=== PATIENT | male | born 1950 | race Caucasian/White ===

== ENCOUNTER 2016-06-04 14:34 | Inpatient (IN) | payer MEDICARE, MEDICAID, OTHER ==
[~2016-06-04] VITALS: Ht 172.7 cm; Wt 80.2 kg
[2016-06-04] VITALS (11 sets, daily range): BP systolic 123–163; BP diastolic 63–77; PULSE 62–79; RESP 16–21; TEMP 96.8–98.6; O2SAT 96–100
[~2016-06-04 14:34] MED LIST: CLON.1 PO; DARV PO; SULF1TAB47 PO
[2016-06-04 15:14] LABS: MEAN CORPUSCULAR HGB CONC 27.9 % (32.0-36.0)
[2016-06-04] MEDS ORDERED: SODIUM CHLORIDE 0.9% FLUSH 10 ML FLUSH IVF PRN (15:15)
[2016-06-04] MEDS ORDERED: PANTOPRAZOLE INJ 80 MG in SODIUM CHLORIDE 0.9% INJ 35 ML IV ONE (15:15)
[2016-06-04] MEDS ORDERED: OCTREOTIDE INJ 500 MCG in SODIUM CHLORID 0.9% 500 ML INJ 500 ML IV SCH (15:15)
[2016-06-04] MEDS ORDERED: PANTOPRAZOLE INJ 80 MG in SODIUM CHLORIDE 0.9% INJ 100 ML IV SCH (15:15)
[2016-06-04] MEDS ORDERED: METF500T4 PO (15:33)
[2016-06-04] MEDS ORDERED: LISI-515 PO (15:33)
[2016-06-04] MEDS ORDERED: AMLO10TA2 PO (15:33)
[2016-06-04] MEDS ORDERED: VITA10002 PO (15:33)
[2016-06-04] MEDS ORDERED: MECL12.574 PO (15:33)
[2016-06-04] MEDS ORDERED: GABA300C5 PO (15:33)
[2016-06-04] MEDS ORDERED: TRAZ100T4 PO (15:33)
[2016-06-04] MEDS ORDERED: ASPI1TAB91 PO (15:33)
[2016-06-04] MEDS ORDERED: FERR325T PO (15:33)
[2016-06-04] MEDS ORDERED: PLAV75TA29 PO (15:33)
[2016-06-04] MEDS ORDERED: FLUO20CA4 PO (15:33)
[2016-06-04] MEDS ORDERED: ATOR1TAB18 PO (15:33)
[2016-06-04] MEDS ORDERED: OXYB5TAB10 PO (15:33)
[2016-06-04] MEDS ORDERED: VENTAER INH (15:33)
[2016-06-04] MEDS ORDERED: NOVOLOGMXP SQ (15:33)
[2016-06-04] MEDS ORDERED: TRAM50TA PO (15:33)
[2016-06-04 15:38] LABS: AUTOMATED NEUTROPHIL # 2.8 TH/MM3 (1.8-7.7); BASOPHIL % 0.5 % (0.0-2.0); EOSINOPHIL # 0.1 TH/MM3 (0-0.4); EOSINOPHIL % 2.1 % (0.0-4.0); LYMPH % 27.9 % (9.0-44.0); LYMPHOCYTE # 1.3 TH/MM3 (1.0-4.8); MEAN CORPUSCULAR HEMOGLOBIN 16.5 PG (27.0-34.0); MONO % 8.5 % (0.0-8.0); PLATELET COUNT 312 TH/MM3 (150-450); RED BLOOD COUNT 3.47 MIL/MM3 (4.50-5.90); RED CELL DISTRIBUTION WIDTH 21.7 % (11.6-17.2); WHITE BLOOD COUNT 4.6 TH/MM3 (4.0-11.0)
[2016-06-04 15:45] LABS: HEMO FLAGS AUTO DIFF
[2016-06-04 15:46] LABS: APTT (PATIENT) 25.6 SEC (24.3-30.1); PROTHROMBIN TIME - PATIENT 11.1 SEC (9.8-11.6)
[2016-06-04 15:47] LABS: HEMATOCRIT 20.5 % (39.0-51.0)
--- NOTE | 2016-06-04 15:57 | PD ---
HPI Chief Complaint: Abnormal Results Time Seen by Provider: 15:12 Travel History International Travel<30 days: No Contact w/Intl Traveler<30days: No Traveled to known affect area: No History of Present Illness HPI 65-year-old male presents with low blood hemoglobin level of 5.6 sent from the [place]. He denies any symptoms that he can recall but is a poor historian. History is supplemented by records. [facility] Past Medical History Narrative Medical By records Asthma: No Autoimmune Disease: No Blood Disorders: No Anxiety: No Depression: No Heart Rhythm Problems: No Cancer: No Cardiovascular Problems: Yes (HTN) High Cholesterol: No Chemotherapy: No Chest Pain: No Congestive Heart Failure: No COPD: No Cerebrovascular Accident: Yes Diabetes: Yes Diminished Hearing: No Endocrine: No GERD: No Glaucoma: No Genitourinary: No Headaches: No Hepatitis: No Hiatal Hernia: No Hypertension: Yes Immune Disorder: No Kidney Stones: No Musculoskeletal: No Neurologic: Yes Psychiatric: No Reproductive: No Respiratory: No Migraines: No Myocardial Infarction: Yes (01/16) Radiation Therapy: No Renal Failure: No Seizures: No Sickle Cell Disease: No Sleep Apnea: No Thyroid Disease: No Ulcer: No Past Surgical History Narrative Surgical By records Abdominal Surgery: Yes (APPY) AICD: No Appendectomy: Yes Arteriovenous Shunt: No Cardiac Surgery: No Cholecystectomy: No Ear Surgery: No Endocrine Surgery: No Eye Surgery: No Genitourinary Surgery: No Gynecologic Surgery: No Insulin Pump: No Joint Replacement: No Oral Surgery: No Pacemaker: No Thoracic Surgery: No Social History Alcohol Use: No Tobacco Use: Yes Substance Use: No Allergies-Medications (Allergen,Severity, Reaction): Coded Allergies: Celebrex (Verified Allergy, Severe, Hives, 06/04/16) Reported Meds & Prescriptions Reported Meds & Active Scripts Active Reported Novolog Mix 70-30 Inj (Insulin Aspart Prota 70%/Aspart 30%) 1,000 Unit/10 Ml Vial 85 Units SQ BID Lisinopril 20 Mg Tab 10 Mg PO DAILY Meclizine (Meclizine HCl) 12.5 Mg Tab 12.5 Mg PO BID PRN Ditropan (Oxybutynin Chloride) 5 Mg Tab 5 Mg PO BID Tramadol (Tramadol HCl) 50 Mg Tab 100 Mg PO Q8HR PRN Trazodone (Trazodone HCl) 100 Mg Tab 100 Mg PO HS Metformin ER (Metformin HCl) 500 Mg Best 500 Mg PO BID Gabapentin 300 Mg Cap 300 Mg PO HS Fluoxetine (Fluoxetine HCl) 20 Mg Cap 20 Mg PO DAILY Ferrous Sulfate 325 Mg Tab 325 Mg PO DAILY Vitamin B-12 (Cyanocobalamin) 1,000 Mcg Tab 1,000 Mcg PO DAILY Plavix (Clopidogrel Bisulfate) 75 Mg Tab 75 Mg PO DAILY Atorvastatin (Atorvastatin Calcium) 80 Mg Tab 40 Mg PO HS Aspirin Adult Low Strength (Aspirin) 81 Mg Tabdr 81 Mg PO DAILY Amlodipine (Amlodipine Besylate) 10 Mg Tab 10 Mg PO DAILY Ventolin Hfa 18 GM Inh (Albuterol Sulfate) 90 Mcg/Act Aer 2 Puff INH Q6H PRN Review of Systems Except as stated in HPI: all other systems reviewed are Neg Physical Exam Exam Limitations: Poor Historian Narrative GENERAL: Well-nourished, well-developed patient. pale SKIN: Warm and dry. HEAD: Normocephalic and atraumatic. EYES: No injection or drainage. ENT: No nasal drainage noted. NECK: Supple, trachea midline. CARDIOVASCULAR: Regular rate and rhythm RESPIRATORY: No increased effort. No accessory muscle use. GASTROINTESTINAL: Abdomen soft, non-tender, nondistended. RECTAL EXAM: Performed with rack puller and after permission. No external hemorrhoid or fissure, stool is brown, non-bloody. NEUROLOGICAL: Awake. Moves extremities. Data Data Last Documented VS Vital Signs Date Time Temp Pulse Resp B/P Pulse Ox O2 Delivery O2 Flow Rate FiO2 06/04/16 15:55 96 06/04/16 14:43 98.6 72 18 135/64 Room Air Orders Complete Blood Count With Diff (06/04/16 15:12) Comprehensive Metabolic Panel (06/04/16 15:12) Prothrombin Time / Inr (Pt) (06/04/16 15:12) Act Partial Throm Time (Ptt) (06/04/16 15:12) Red Blood Cells (Rbc) (06/04/16 15:12) Ecg Monitoring (06/04/16 15:12) Iv Access Insert/Monitor (06/04/16 15:12) Oximetry (06/04/16 15:12) Sodium Chloride 0.9% Flush (Ns Flush) (06/04/16 15:15) Octreotide Inj (Sandostatin Inj) (06/04/16 15:15) Pantoprazole Inj (Protonix Inj) (06/04/16 15:15) Pantoprazole Inj (Protonix Inj) (06/04/16 15:15) Type And Screen (06/04/16 15:12) Blood Product Administration .UPON TRANSFUSION (06/04/16 15:46) Sodium Chlor 0.9% 250 Ml Inj (Ns 250 Ml (06/04/16 16:00) Vascular Access Team Consult/P PRN (06/04/16 15:47) Vascular Access Team Consult/P PRN (06/04/16 15:48) Vascular Poc Ultrasound (06/04/16 ) Admit Order (Ed Use Only) (06/04/16 16:48) Labs Laboratory Tests Test 06/04/16 15:20 White Blood Count 4.6 TH/MM3 Red Blood Count 3.47 MIL/MM3 Hemoglobin 5.7 GM/DL Hematocrit 20.5 % Mean Corpuscular Volume 59.0 FL Mean Corpuscular Hemoglobin 16.5 PG Mean Corpuscular Hemoglobin 27.9 % Concent Red Cell Distribution Width 21.7 % Platelet Count 312 TH/MM3 Mean Platelet Volume 8.5 FL Neutrophils (%) (Auto) 61.0 % Lymphocytes (%) (Auto) 27.9 % Monocytes (%) (Auto) 8.5 % Eosinophils (%) (Auto) 2.1 % Basophils (%) (Auto) 0.5 % Neutrophils # (Auto) 2.8 TH/MM3 Lymphocytes # (Auto) 1.3 TH/MM3 Monocytes # (Auto) 0.4 TH/MM3 Eosinophils # (Auto) 0.1 TH/MM3 Basophils # (Auto) 0.0 TH/MM3 CBC Comment AUTO DIFF Differential Comment AUTO DIFF CONFIRMED Platelet Estimate NORMAL Platelet Morphology Comment NORMAL Tear Drop Cells 1+ Ovalocytes 2+ Prothrombin Time 11.1 SEC Prothromb Time International 1.0 RATIO Ratio Activated Partial 25.6 SEC Thromboplast Time Sodium Level 136 MEQ/L Potassium Level 4.1 MEQ/L Chloride Level 102 MEQ/L Carbon Dioxide Level 22.2 MEQ/L Anion Gap 12 MEQ/L Blood Urea Nitrogen 19 MG/DL Creatinine 1.12 MG/DL Estimat Glomerular Filtration 66 ML/MIN Rate Random Glucose 298 MG/DL Calcium Level 7.9 MG/DL Total Bilirubin 0.3 MG/DL Aspartate Amino Transf 22 U/L (AST/SGOT) Alanine Aminotransferase 19 U/L (ALT/SGPT) Alkaline Phosphatase 125 U/L Total Protein 6.5 GM/DL Albumin 2.6 GM/DL Blood Type O POSITIVE Antibody Screen NEGATIVE Crossmatch Leukocyte-Reduced Red Blood Cells Blood Bank Comment MDM Medical Decision Making Medical Screen Exam Complete: Yes Emergency Medical Condition: Yes Medical Record Reviewed: Yes (past history confirmed) Interpretation(s) CBC & BMP Diagram 06/04/16 15:20 CBC & BMP Diagram 06/04/16 15:20 Differential Diagnosis GI bleed, anemia, lab error, renal failure Narrative Course Will check blood work and dose with Protonix and octreotide and transfuse 2 units. Patient agrees to admission Physician Communication Physician Communication dr jeff agrees to admit Diagnosis Primary Impression: Anemia Qualified Code: D64.9 - Anemia, unspecified type Additional Impression: GI bleed Qualified Code: K92.2 - Gastrointestinal hemorrhage, unspecified gastrointestinal hemorrhage type Admitting Information Admitting Physician Requests: Admit Sybil Perez MD Jun 04, 2016 15:57
[2016-06-04] MEDS ORDERED: SODIUM CHLOR 0.9% 250 ML INJ 250 ML IV ONE (16:00)
[2016-06-04 16:10] LABS: ALT (GPT) 19 U/L (12-78); ANION GAP 12 MEQ/L (5-15); AST (GOT) 22 U/L (15-37); BICARBONATE 22.2 MEQ/L (21.0-32.0); BLOOD UREA NITROGEN 19 MG/DL (7-18); CHLORIDE 102 MEQ/L (98-107); GLOMERULAR FILTRATION RATE 66 ML/MIN (>89); POTASSIUM 4.1 MEQ/L (3.5-5.1); SODIUM (NA) 136 MEQ/L (136-145)
[2016-06-04 16:13] LABS: ALKALINE PHOSPHATASE 125 U/L (45-117); TOTAL BILIRUBIN ADULT 0.3 MG/DL (0.2-1.0)
[2016-06-04 16:36] LABS: OVALOCYTES 2+ (NORMAL); PLATELET ESTIMATE SMEAR NORMAL (NORMAL); PLATELET MORPHOLOGY NORMAL (NORMAL); SCAN/DIFF AUTO DIFF CONFIRMED; TEARDROP RBCS 1+ (NORMAL)
[2016-06-04] MEDS ORDERED: SODIUM CHLORIDE 0.9% FLUSH 10 ML FLUSH IV FLUSH PRN (17:15)
[2016-06-04] MEDS ORDERED: GLUCAGON 1 MG/ML VIAL OTHER PRN (17:15)
[2016-06-04] MEDS ORDERED: traMADol HCL 50 MG TAB PO PRN (17:15)
[2016-06-04] MEDS ORDERED: NALOXONE HCL 0.4 MG/ML AMP IV PRN (17:15)
[2016-06-04] MEDS ORDERED: DEXTROSE 50% IN WATER 50 ML VIAL(D50) IV PUSH PRN (17:15)
[2016-06-04] MEDS ORDERED: ONDANSETRON HCL 4 MG/2 ML VIAL IVP PRN (17:15)
[2016-06-04] MEDS ORDERED: MECLIZINE HCL 25 MG TAB PO PRN (17:15)
[2016-06-04] MEDS ORDERED: ALBUTEROL SULFATE 90 MCG/ACT HFA 18 GM INHALER INH PRN (17:15)
--- NOTE | 2016-06-04 17:23 | HHI.HP ---
[facility] Admission Diagnosis anemia, gi bleed Diagnoses: Chief Complaint: abnormal lab Travel History International Travel<30 Days: No Contact w/Intl Traveler <30 Da: No Traveled to Known Affected Are: No History of Present Illness This is a 65-year-old male past mental history of hypertension, hyperlipidemia, type 2 diabetes with peripheral neuropathy, urinary urgency, questionable coronary artery disease who presented with an abnormal lab in the clinic. Patient stated that he went to follow up with his PCP today and had lab done in which a value was abnormal so he was sent to the emergency department. In the ER labs were obtained and hemoglobin was at 5.7. Patient denied any lightheadedness, dizziness, shortness of breathing, chest pain, or palpitation. He also denied any GI bleed. Denies any nausea or vomiting. Patient stated that he feels well. Patient stated that he had an colonoscopy within the past year and he was told that it was normal. He denies any alcohol use. Patient is a little slow in response but he is able to answer all my questions. Review of Systems Constitutional: DENIES: Diaphoretic episodes, Fatigue, Fever, Weight gain, Weight loss, Chills, Dizziness, Change in appetite, Night Sweats Endocrine: DENIES: Heat/cold intolerance, Polydipsia, Polyuria, Polyphagia Eyes: DENIES: Blurred vision, Diplopia, Eye inflammation, Eye pain, Vision loss , Photosensitivity, Double Vision Ears, nose, mouth, throat: DENIES: Tinnitus, Hearing loss, Vertigo, Nasal discharge, Oral lesions, Throat pain, Hoarseness, Ear Pain, Running Nose, Epistaxis, Sinus Pain, Toothache, Odynophagia Respiratory: DENIES: Apneas, Cough, Snoring, Wheezing, Hemoptysis, Sputum production, Shortness of breath Cardiovascular: DENIES: Chest pain, Palpitations, Syncope, Dyspnea on Exertion , PND, Lower Extremity Edema, Orthopnea, Claudication Gastrointestinal: DENIES: Abdominal pain, Black stools, Bloody stools, Constipation, Diarrhea, Nausea, Vomiting, Difficulty Swallowing, Anorexia Genitourinary: DENIES: Sexual dysfunction, Urinary frequency, Urinary incontinence, Urgency, Hematuria, Dysuria, Nocturia, Penile Discharge, Testicular Pain, Testicular Swelling Musculoskeletal: DENIES: Joint pain, Muscle aches, Stiffness, Joint Swelling, Back pain, Neck pain Integumentary: DENIES: Abnormal pigmentation, Nail changes, Pruritus, Rash Hematologic/lymphatic: DENIES: Bruising, Lymphadenopathy Immunologic/allergic: DENIES: Eczema, Urticaria Neurologic: DENIES: Abnormal gait, Headache, Localized weakness, Paresthesias, Seizures, Speech Problems, Tremor, Poor Balance Psychiatric: DENIES: Anxiety, Confusion, Mood changes, Depression, Hallucinations, Agitation, Suicidal Ideation, Homicidal Ideation, Delusions Past Family Social History Past Medical History Hypertension, hyperlipidemia, type 2 diabetes insulin-dependent, peripheral neuropathy, urinary urgency, depression, questionable coronary artery disease Past Surgical History Appendectomy Reported Medications Reported Meds & Active Scripts Active Reported Novolog Mix 70-30 Inj (Insulin Aspart Prota 70%/Aspart 30%) 1,000 Unit/10 Ml Vial 85 Units SQ BID Lisinopril 20 Mg Tab 10 Mg PO DAILY Meclizine (Meclizine HCl) 12.5 Mg Tab 12.5 Mg PO BID PRN Ditropan (Oxybutynin Chloride) 5 Mg Tab 5 Mg PO BID Tramadol (Tramadol HCl) 50 Mg Tab 100 Mg PO Q8HR PRN Trazodone (Trazodone HCl) 100 Mg Tab 100 Mg PO HS Metformin ER (Metformin HCl) 500 Mg Best 500 Mg PO BID Gabapentin 300 Mg Cap 300 Mg PO HS Fluoxetine (Fluoxetine HCl) 20 Mg Cap 20 Mg PO DAILY Ferrous Sulfate 325 Mg Tab 325 Mg PO DAILY Vitamin B-12 (Cyanocobalamin) 1,000 Mcg Tab 1,000 Mcg PO DAILY Plavix (Clopidogrel Bisulfate) 75 Mg Tab 75 Mg PO DAILY Atorvastatin (Atorvastatin Calcium) 80 Mg Tab 40 Mg PO HS Aspirin Adult Low Strength (Aspirin) 81 Mg Tabdr 81 Mg PO DAILY Amlodipine (Amlodipine Besylate) 10 Mg Tab 10 Mg PO DAILY Ventolin Hfa 18 GM Inh (Albuterol Sulfate) 90 Mcg/Act Aer 2 Puff INH Q6H PRN Allergies: Coded Allergies: Celebrex (Verified Allergy, Severe, Hives, 06/04/16) Active Ordered Medications Current Medications Sodium Chloride 2 ml 2 ml UNSCH PRN IVF FLUSH AFTER USING IV ACCESS; Start at 15:15 Octreotide Acetate 500 mcg/ Sodium Chloride 500.5 ml @ 50 mls/hr Q10H IV ; Start 06/04/16 at 15:15; Stop 06/04/16 at 17:03; Status DC Pantoprazole Sodium 80 mg/ Sodium Chloride 35 ml @ 420 mls/hr ONCE ONCE IV Last administered on 06/04/16t 16:34; Start 06/04/16 at 15:15; Stop 06/04/16 at 15:19; Status DC Pantoprazole Sodium 80 mg/ Sodium Chloride 100 ml @ 10 mls/hr Q10H IV ; Start 06/04/16 at 15:15; Stop 06/04/16 at 17:03; Status DC Sodium Chloride (NS 250 ml Inj) 250 ml @ 15 mls/hr ONCE ONCE IV ; Start at 16:00; Stop 06/05/16 at 08:39 Albuterol Sulfate (Proair Hfa Inh) 2 puff Q6H PRN INH SHORTNESS OF BREATH; Start 06/04/16 at 17:15; Status UNV Amlodipine Besylate (Norvasc) 10 mg DAILY PO ; Start 06/05/16 at 09:00; Status UNV Atorvastatin Calcium (Lipitor) 40 mg HS PO ; Start 06/04/16 at 21:00 Cyanocobalamin (Vitamin B12) 1,000 mcg DAILY PO ; Start 06/05/16 at 09:00; Status UNV Ferrous Sulfate (Ferrous Sulfate) 325 mg DAILY PO ; Start 06/05/16 at 09:00 Fluoxetine HCl (PROzac) 20 mg DAILY PO ; Start 06/05/16 at 09:00; Status UNV Gabapentin (Neurontin) 300 mg HS PO ; Start 06/04/16 at 21:00 Insulin Aspart Prota 70%/Aspart 30% (NovoLOG MIX 70/ 30 INJ) 85 units BID SQ ; Start 06/04/16 at 21:00; Status UNV Lisinopril (Prinivil) 10 mg DAILY PO ; Start 06/05/16 at 09:00; Status UNV Meclizine HCl (Antivert) 12.5 mg BID PRN PO VERTIGO; Start 06/04/16 at 17:15 Oxybutynin Chloride (Ditropan) 5 mg BID PO ; Start 06/04/16 at 21:00 Tramadol HCl (Ultram) 100 mg Q8HR PRN PO PAIN; Start 06/04/16 at 17:15; Status UNV Trazodone HCl (Desyrel) 100 mg HS PO ; Start 06/04/16 at 21:00 Metformin HCl (Glucophage) 500 mg BID PO BSM; Start 06/04/16 at 21:00 Pantoprazole Sodium 40 mg 40 mg Q12H IV PUSH ; Start 06/04/16 at 20:00; Status UNV Sodium Chloride (NS 1000 ml Inj) 1,000 ml @ 100 mls/hr Q10H IV ; Start at 17:08; Status UNV Sodium Chloride (NS Flush) 2 ml UNSCH PRN IV FLUSH FLUSH AFTER USING IV ACCESS ; Start 06/04/16 at 17:15; Status UNV Sodium Chloride (NS Flush) 2 ml BID IV FLUSH ; Start 06/04/16 at 21:00; Status UNV Ondansetron HCl (Zofran Inj) 4 mg Q6H PRN IVP NAUSEA OR VOMITING; Start at 17:15; Status UNV Naloxone HCl (Narcan Inj) 0.4 mg UNSCH PRN IV SEE LABEL COMMENTS; Start at 17:15; Status UNV Family History Father mother had history of coronary artery disease. Father also had a history of unknown type of cancer. Social History Patient lives at home with his and kids. Denied any alcohol illicit drug use. Smokes about half a pack per day. Physical Exam Vital Signs Vital Signs Date Time Temp Pulse Resp B/P Pulse Ox O2 Delivery O2 Flow Rate FiO2 06/04/16 15:55 96 06/04/16 14:43 98.6 72 18 135/64 96 Room Air 06/04/16 14:43 98.6 72 18 135/64 96 Physical Exam GENERAL: This is a well-nourished, well-developed patient, in no apparent distress. SKIN: No rashes, ecchymoses or lesions. Cool and dry. HEAD: Atraumatic. Normocephalic. No temporal or scalp tenderness. EYES: Pupils equal round and reactive. Extraocular motions intact. No scleral icterus. No injection or drainage. ENT: Nose without bleeding, purulent drainage or septal hematoma. Throat without erythema, tonsillar hypertrophy or exudate. Uvula midline. Airway patent. NECK: Trachea midline. No JVD or lymphadenopathy. Supple, nontender, no meningeal signs. CARDIOVASCULAR: Regular rate and rhythm without murmurs, gallops, or rubs. RESPIRATORY: Clear to auscultation. Breath sounds equal bilaterally. No wheezes , rales, or rhonchi. GASTROINTESTINAL: Abdomen soft, non-tender, nondistended. No hepato-splenomegaly , or palpable masses. No guarding. MUSCULOSKELETAL: Extremities without clubbing, cyanosis, or edema. No joint tenderness, effusion, or edema noted. No calf tenderness. Negative Homans sign bilaterally. NEUROLOGICAL: Awake and alert. Cranial nerves II through XII intact. Motor and sensory grossly within normal limits. Five out of 5 muscle strength in all muscle groups. Normal speech. Laboratory Laboratory Tests Test 06/04/16 15:20 White Blood Count 4.6 Red Blood Count 3.47 Hemoglobin 5.7 Hematocrit 20.5 Mean Corpuscular Volume 59.0 Mean Corpuscular Hemoglobin 16.5 Mean Corpuscular Hemoglobin 27.9 Concent Red Cell Distribution Width 21.7 Platelet Count 312 Mean Platelet Volume 8.5 Neutrophils (%) (Auto) 61.0 Lymphocytes (%) (Auto) 27.9 Monocytes (%) (Auto) 8.5 Eosinophils (%) (Auto) 2.1 Basophils (%) (Auto) 0.5 Neutrophils # (Auto) 2.8 Lymphocytes # (Auto) 1.3 Monocytes # (Auto) 0.4 Eosinophils # (Auto) 0.1 Basophils # (Auto) 0.0 CBC Comment AUTO DIFF Differential Comment AUTO DIFF CONFIRMED Platelet Estimate NORMAL Platelet Morphology Comment NORMAL Tear Drop Cells 1+ Ovalocytes 2+ Prothrombin Time 11.1 Prothromb Time International 1.0 Ratio Activated Partial 25.6 Thromboplast Time Sodium Level 136 Potassium Level 4.1 Chloride Level 102 Carbon Dioxide Level 22.2 Anion Gap 12 Blood Urea Nitrogen 19 Creatinine 1.12 Estimat Glomerular Filtration 66 Rate Random Glucose 298 Calcium Level 7.9 Total Bilirubin 0.3 Aspartate Amino Transf 22 (AST/SGOT) Alanine Aminotransferase 19 (ALT/SGPT) Alkaline Phosphatase 125 Total Protein 6.5 Albumin 2.6 Blood Type O POSITIVE Antibody Screen NEGATIVE Crossmatch Leukocyte-Reduced Red Blood Cells Blood Bank Comment Result Diagram: 06/04/16 1520 06/04/16 1520 Assessment and Plan Assessment and Plan 65-year-old male with past medical history hypertension, hyperlipidemia, type 2 diabetes insulin-dependent who presented with an abnormal hemoglobin of 5.7 Severe anemia -Hemoglobin is 5.7 with a MCV of 69. Suspecting iron deficiency anemia from GI source.Patient is hemodynamically stable. Positive Hemoccult blood stools that was obtained in the ED. -Per patient he had a colonoscopy within the year. -Patient was started on octreotide and Protonix gtt in the ED. I do not suspect any upper GI bleed since patient is asymptomatic. Will DC octreotide. Will start patient on Protonix 40 mg IV twice a day. -We'll consult GI and try to obtain colonoscopy report. -We'll do an anemia workup. -Patient is on aspirin and Plavix will hold pending recommendation from GI. -Continue to monitor H&H. -2 packs of red blood cell has been order in the ED and will be administered. We'll check a posttransfusion hemoglobin. Hypertension, hyperlipidemia, type 2 diabetes, peripheral neuropathy, urinary urgency, questionable history of coronary artery disease -Resume home medication except for aspirin and Plavix due to GI bleed. -We'll also order insulin sliding scale. DVT prophylaxis -Chemoprophylaxis contraindicated. -SCD/teds Discussed Condition With patient Physician Certification 2 Midnight Certification Type: Admission for Inpatient Services Order for Inpatient Services The services are ordered in accordance with Medicare regulations or non- Medicare payer requirements, as applicable. In the case of services not specified as inpatient-only, they are appropriately provided as inpatient services in accordance with the 2-midnight benchmark. Estimated LOS (days): 2 2 days is the estimated time the patient will need to remain in the hospital, assuming treatment plan goals are met and no additional complications. Post-Hospital Plan: Petrona Ugarte MD Jun 04, 2016 17:23
[2016-06-04 18:17] LABS: RETIC % 3.2 % (0.4-3.0)
[2016-06-04 18:22] LABS: REVIEW FLAG FINAL
[2016-06-04 18:40] LABS: LDH SERUM 158 U/L (87-241); TRANSFERRIN IRON PROFILE 411 MG/DL (200-360)
[2016-06-04 19:05] LABS: FERRITIN 8 NG/ML (26-388)
[2016-06-04] MEDS: PANTOPRAZOLE SODIUM 40 MG VIAL IV PUSH SCH (20:10)
[2016-06-04] MEDS: SODIUM CHLOR 0.9% 1000 ML INJ 1,000 ML IV SCH (20:10)
[2016-06-04] MEDS: SODIUM CHLORIDE 0.9% FLUSH 10 ML FLUSH IV FLUSH SCH (20:11)
[2016-06-04] MEDS ORDERED: metFORMIN HCL 500 MG TAB PO SCH (21:00)
[2016-06-04] MEDS ORDERED: INSULIN ASPAR PROT 70/30 1,000 UNITS/10 ML VIAL SQ SCH (21:00)
[2016-06-04] MEDS: INSULIN ASPART SUPPLEMENTAL SCALE SQ SCH (21:55)
[2016-06-04] MEDS: GABAPENTIN 300 MG CAP PO SCH (21:55)
[2016-06-04] MEDS: ATORVASTATIN 40 MG TAB PO SCH (21:55)
[2016-06-04] MEDS: traZODone HCL 100 MG TAB PO SCH (21:55)
[2016-06-04] MEDS: OXYBUTYNIN CHLORIDE 5 MG TAB PO SCH (21:55)
[2016-06-05] VITALS (9 sets, daily range): BP systolic 110–163; BP diastolic 63–74; PULSE 58–82; RESP 15–20; TEMP 96.1–97.8; O2SAT 95–98
[2016-06-05] MEDS: SODIUM CHLOR 0.9% 1000 ML INJ 1,000 ML IV SCH ×3 (04:10→23:08)
[2016-06-05] MEDS: INSULIN ASPART SUPPLEMENTAL SCALE SQ SCH ×4 (06:00→20:22)
[2016-06-05 06:24] LABS: HEMATOCRIT 25.3 % (39.0-51.0); MEAN CELL VOLUME 64.3 FL (80.0-100.0); MEAN CORPUSCULAR HEMOGLOBIN 19.6 PG (27.0-34.0); MEAN CORPUSCULAR HGB CONC 30.5 % (32.0-36.0); PLATELET COUNT 269 TH/MM3 (150-450); RED BLOOD COUNT 3.93 MIL/MM3 (4.50-5.90); WHITE BLOOD COUNT 4.8 TH/MM3 (4.0-11.0)
[2016-06-05 06:26] LABS: REVIEW FLAG FINAL
[2016-06-05 07:21] LABS: BICARBONATE 24.4 MEQ/L (21.0-32.0); POTASSIUM 3.7 MEQ/L (3.5-5.1)
[2016-06-05] MEDS: PANTOPRAZOLE SODIUM 40 MG VIAL IV PUSH SCH ×2 (08:00→20:17)
[2016-06-05] MEDS: SODIUM CHLORIDE 0.9% FLUSH 10 ML FLUSH IV FLUSH SCH ×2 (08:11→20:16)
[2016-06-05] MEDS: FLUoxetine HCL 20 MG CAP PO SCH (08:19)
[2016-06-05] MEDS: LISINOPRIL 10 MG TAB PO SCH (08:19)
[2016-06-05] MEDS: OXYBUTYNIN CHLORIDE 5 MG TAB PO SCH ×2 (08:19→20:17)
[2016-06-05] MEDS: CYANOCOBALAMIN 1,000 MCG TAB PO SCH (08:19)
[2016-06-05] MEDS: FERROUS SULFATE 325 MG (65 MG ELEMENTAL IRON) TAB PO SCH (08:20)
--- NOTE | 2016-06-05 08:58 | PD.CONS ---
HPI History of Present Illness This is a 65 year old male who presented to the ER for evaluation of abnormal labs as outpatient. He was found to have severe anemia with a HH of 5.7/20.5 on admission. he received 2 units of PRBC and this is now 7.7/25.3. Iron studies with Iron 17, TIBC 575, Iron Saturation 3.0, Ferritin 8. The patient reports that he has been more fatigued than usual, but cannot tell me for how long. He denies any shortness of breath, chest pain, nausea, vomiting, heartburn, reflux, diarrhea, constipation, black or dark stools, or red blood in his stool. He does report that he has had some intermittent lower abdominal cramping since this am. He is a very poor historian and unable to provide much information. He reported to another provider that he had a colonoscopy within the past year, but he is telling me that he has never had an egd or colonoscopy. Review of outpatient records show a pathology report from EGD/ Colonoscopy (02/18/07) that revealed hyperplastic polyp in sigmoid colon, reactive gastropathy, but the actual procedure report not available. He denies the use of blood thinners or NSAIDs. According to his medication list, he is on ASA and Plavix at home. He reports that he quit drinking alcohol 10 years ago, but was a heavy drinker prior to that. (Katlin Cody) PFSH Past Medical History Hypertension Hyperlipidemia Type 2 diabetes Peripheral neuropathy Depression Questionable coronary artery disease Gastritis Hyperplastic polyp Past Surgical History Appendectomy EGD/Colonoscopy (Katlin Cody) Coded Allergies: Celebrex (Verified Allergy, Severe, Hives, 06/04/16) Medications Allergies Coded Allergies Type Severity Reaction Last Updated Verified Celebrex Allergy Severe Hives 06/04/16 Yes Active Scripts Medications Dose Route/Sig Days Date Category Novolog Mix 70-30 Inj (Insulin Aspart Prota 70%/Aspart 30%) 1,000 Unit/10 Ml Vial 85 Units SQ BID 06/04/16 Reported Lisinopril 20 Mg Tab 10 Mg PO DAILY 06/04/16 Reported Meclizine (Meclizine HCl) 12.5 Mg Tab 12.5 Mg PO BID PRN 06/04/16 Reported Ditropan (Oxybutynin Chloride) 5 Mg Tab 5 Mg PO BID 06/04/16 Reported Tramadol (Tramadol HCl) 50 Mg Tab 100 Mg PO Q8HR PRN 06/04/16 Reported Trazodone (Trazodone HCl) 100 Mg Tab 100 Mg PO HS 06/04/16 Reported Metformin ER (Metformin HCl) 500 Mg Best 500 Mg PO BID 06/04/16 Reported Gabapentin 300 Mg Cap 300 Mg PO HS 06/04/16 Reported Fluoxetine (Fluoxetine HCl) 20 Mg Cap 20 Mg PO DAILY 06/04/16 Reported Ferrous Sulfate 325 Mg Tab 325 Mg PO DAILY 06/04/16 Reported Vitamin B-12 (Cyanocobalamin) 1,000 Mcg Tab 1,000 Mcg PO DAILY 06/04/16 Reported Plavix (Clopidogrel Bisulfate) 75 Mg Tab 75 Mg PO DAILY 06/04/16 Reported Atorvastatin (Atorvastatin Calcium) 80 Mg Tab 40 Mg PO HS 06/04/16 Reported Aspirin Adult Low Strength (Aspirin) 81 Mg Tabdr 81 Mg PO DAILY 06/04/16 Reported Amlodipine (Amlodipine Besylate) 10 Mg Tab 10 Mg PO DAILY 06/04/16 Reported Ventolin Hfa 18 GM Inh (Albuterol Sulfate) 90 Mcg/Act Aer 2 Puff INH Q6H PRN 06/04/16 Reported Family History Father mother had history of coronary artery disease. Father also had a history of unknown type of cancer. Social History Quit drinking 10 years ago, prior to that he was a heavy drinker. Smokes about half a pack per day. (Katlin Cody) Review of Systems Constitutional: COMPLAINS OF: Fatigue, DENIES: Weight loss, Change in appetite Respiratory: DENIES: Cough, Shortness of breath Cardiovascular: DENIES: Chest pain Gastrointestinal: COMPLAINS OF: Abdominal pain, DENIES: Black stools, Bloody stools, Constipation, Diarrhea, Nausea, Vomiting, Swelling of Abdomen, Heartburn , Hematemesis Integumentary: DENIES: Abnormal pigmentation Hematologic/lymphatic: DENIES: Bruising Neurologic: DENIES: Headache Psychiatric: DENIES: Confusion (Katlin Cody) GI Exam Vitals I&O Vital Signs Date Time Temp Pulse Resp B/P Pulse Ox O2 Delivery O2 Flow Rate FiO2 06/05/16 04:11 96.2 58 16 127/71 98 06/05/16 02:00 96.1 60 16 110/63 98 06/05/16 01:30 96.9 65 16 114/66 97 06/05/16 01:01 96.8 74 15 137/69 98 06/04/16 23:16 97.2 74 16 123/68 99 06/04/16 23:01 97.4 77 16 158/74 97 06/04/16 23:00 70 06/04/16 22:35 96.8 79 16 155/77 99 06/04/16 21:14 97.2 65 18 163/71 100 06/04/16 20:00 62 18 136/63 98 Room Air 06/04/16 19:40 68 21 163/73 96 Room Air 06/04/16 18:46 68 18 131/71 96 06/04/16 17:30 71 16 141/70 98 06/04/16 15:55 96 06/04/16 14:43 98.6 72 18 135/64 96 Room Air 06/04/16 14:43 98.6 72 18 135/64 96 Laboratory Test 06/04/16 06/04/16 06/05/16 15:20 18:00 04:47 White Blood Count 4.6 TH/MM3 4.8 TH/MM3 Red Blood Count 3.47 MIL/MM3 3.93 MIL/MM3 Hemoglobin 5.7 GM/DL 7.7 GM/DL Hematocrit 20.5 % 25.3 % Mean Corpuscular Volume 59.0 FL 64.3 FL Mean Corpuscular Hemoglobin 16.5 PG 19.6 PG Mean Corpuscular Hemoglobin 27.9 % 30.5 % Concent Red Cell Distribution Width 21.7 % 28.0 % Platelet Count 312 TH/MM3 269 TH/MM3 Mean Platelet Volume 8.5 FL 8.4 FL Neutrophils (%) (Auto) 61.0 % Lymphocytes (%) (Auto) 27.9 % Monocytes (%) (Auto) 8.5 % Eosinophils (%) (Auto) 2.1 % Basophils (%) (Auto) 0.5 % Neutrophils # (Auto) 2.8 TH/MM3 Lymphocytes # (Auto) 1.3 TH/MM3 Monocytes # (Auto) 0.4 TH/MM3 Eosinophils # (Auto) 0.1 TH/MM3 Basophils # (Auto) 0.0 TH/MM3 CBC Comment AUTO DIFF Differential Comment AUTO DIFF CONFIRMED Platelet Estimate NORMAL Platelet Morphology Comment NORMAL Tear Drop Cells 1+ Ovalocytes 2+ Prothrombin Time 11.1 SEC Prothromb Time International 1.0 RATIO Ratio Activated Partial 25.6 SEC Thromboplast Time Sodium Level 136 MEQ/L 144 MEQ/L Potassium Level 4.1 MEQ/L 3.7 MEQ/L Chloride Level 102 MEQ/L 111 MEQ/L Carbon Dioxide Level 22.2 MEQ/L 24.4 MEQ/L Anion Gap 12 MEQ/L 9 MEQ/L Blood Urea Nitrogen 19 MG/DL 14 MG/DL Creatinine 1.12 MG/DL 0.87 MG/DL Estimat Glomerular Filtration 66 ML/MIN 88 ML/MIN Rate Random Glucose 298 MG/DL 73 MG/DL Calcium Level 7.9 MG/DL 8.3 MG/DL Total Bilirubin 0.3 MG/DL Aspartate Amino Transf 22 U/L (AST/SGOT) Alanine Aminotransferase 19 U/L (ALT/SGPT) Alkaline Phosphatase 125 U/L Total Protein 6.5 GM/DL Albumin 2.6 GM/DL Blood Type O POSITIVE O POSITIVE Antibody Screen NEGATIVE Crossmatch Leukocyte-Reduced Red Blood Cells Blood Bank Comment Reticulocyte Count 3.2 % Absolute Reticulocyte Count 118.1 MIL/L Haptoglobin 238 MG/DL Iron Level 17 MCG/DL Total Iron Binding Capacity 575 MCG/DL Percent Iron Saturation 3.0 % Ferritin 8 NG/ML Lactate Dehydrogenase 158 U/L Vitamin B12 Level 692 PG/ML Folate 6.2 NG/ML Physical Examination HEENT: Normocephalic; atraumatic; no jaundice. CHEST: CTA CARDIAC: RRR ABDOMEN: Soft, nondistended, nontender; no hepatosplenomegaly; bowel sounds are present in all four quadrants. EXTREMITIES: No clubbing, cyanosis, or edema. SKIN: Normal; no rash; no jaundice. HIDE GRADER: No focal deficits; alert and oriented times three- poor historian (Katlin Cody) Assessment and Plan Plan ASSESSMENT: - Severe iron deficiency anemia. Pt very poor historian and denies any obvious GI bleeding. He also denies blood thinners or NSAID use, but according to EMR, he is on Plavix and ASA. He states he quit drinking etoh 10 years ago, but was a heavy drinker prior to that. He denies any hx of PUD. He reported earlier that he had a colonoscopy within the past year, but he is denying ever having one to me. Review of outpatient records show a pathology report from EGD/Colonoscopy (02/18/07) that revealed hyperplastic polyp in sigmoid colon, reactive gastropathy, but the actual procedure report not available. HH of 5.7/20.5 on admission. S/P 2 units of PRBC and this is now 7.7/25.3. Iron 17, TIBC 575, Iron Saturation 3.0, Ferritin 8. Protonix 40mg IV BID. Here is on a regular diet, but has not started on his breakfast yet. Of note, he had a solid brown stool while I was in the room. - Hypertension, Hyperlipidemia, Type 2 diabetes, Peripheral neuropathy, Depression, Questionable coronary artery disease. Per primary PLAN: - Plan for egd/colonoscopy in am - Obtain consents - Clear liquids - NPO after MN - Golytely prep - PPI - Monitor HH - Transfuse as necessary - Supportive care - FUrther recommendations to follow based on results of above - Pt seen and examined by Dr. Edmondson and myself and this note is written on his behalf (Katlin Cody) Physician Comments Patient seen and examined Agree with above Continue with current supportive care Monitor labs Plan for an EGD and a colonoscopy tomorrow (Roverto Edmondson MD) Katlin Cody Jun 05, 2016 08:58 Roverto Edmondson MD Jun 05, 2016 13:08
--- NOTE | 2016-06-05 11:35 | HHI.PR ---
Subjective Remarks Follow-up for severe anemia Patient continues to have no bloody stools or emesis. He has no complaints. Patient is a poor historian. Objective Vitals Vital Signs Date Time Temp Pulse Resp B/P Pulse Ox O2 Delivery O2 Flow Rate FiO2 06/05/16 07:50 97.1 72 20 163/68 96 06/05/16 04:11 96.2 58 16 127/71 98 06/05/16 02:00 96.1 60 16 110/63 98 06/05/16 01:30 96.9 65 16 114/66 97 06/05/16 01:01 96.8 74 15 137/69 98 06/04/16 23:16 97.2 74 16 123/68 99 06/04/16 23:01 97.4 77 16 158/74 97 06/04/16 23:00 70 06/04/16 22:35 96.8 79 16 155/77 99 06/04/16 21:14 97.2 65 18 163/71 100 06/04/16 20:00 62 18 136/63 98 Room Air 06/04/16 19:40 68 21 163/73 96 Room Air 06/04/16 18:46 68 18 131/71 96 06/04/16 17:30 71 16 141/70 98 06/04/16 15:55 96 06/04/16 14:43 98.6 72 18 135/64 96 Room Air 06/04/16 14:43 98.6 72 18 135/64 96 Result Diagram: 06/05/16 0447 06/05/16446 Objective Remarks GENERAL: in NAD NECK: Supple, trachea midline. No JVD or lymphadenopathy. CARDIOVASCULAR: Regular rate and rhythm without murmurs, gallops, or rubs. RESPIRATORY: Breath sounds equal bilaterally. No accessory muscle use. GASTROINTESTINAL: Abdomen soft, non-tender, nondistended. Medications and IVs Current Medications Sodium Chloride 2 ml 2 ml UNSCH PRN IVF FLUSH AFTER USING IV ACCESS; Start at 15:15 Octreotide Acetate 500 mcg/ Sodium Chloride 500.5 ml @ 50 mls/hr Q10H IV ; Start 06/04/16 at 15:15; Stop 06/04/16 at 17:03; Status DC Pantoprazole Sodium 80 mg/ Sodium Chloride 35 ml @ 420 mls/hr ONCE ONCE IV Last administered on 06/04/16 16:34; Start 06/04/16 at 15:15; Stop 06/04/16 at 15:19; Status DC Pantoprazole Sodium 80 mg/ Sodium Chloride 100 ml @ 10 mls/hr Q10H IV ; Start 06/04/16 at 15:15; Stop 06/04/16 at 17:03; Status DC Sodium Chloride (NS 250 ml Inj) 250 ml @ 15 mls/hr ONCE ONCE IV ; Start at 16:00; Stop 06/05/16 at 08:39; Status DC Albuterol Sulfate (Ventolin Hfa Inh) 2 puff Q6H PRN INH SHORTNESS OF BREATH; Start 06/04/16 at 17:15 Amlodipine Besylate (Norvasc) 10 mg DAILY PO Last administered on 06/05/16 08: 19; Start 06/05/16 at 09:00 Atorvastatin Calcium (Lipitor) 40 mg HS PO Last administered on 06/04/16 21:55 ; Start 06/04/16 at 21:00 Cyanocobalamin (Vitamin B12) 1,000 mcg DAILY PO Last administered on 06/05/16 08:19; Start 06/05/16 at 09:00 Ferrous Sulfate (Ferrous Sulfate) 325 mg DAILY PO Last administered on 08:20; Start 06/05/16 at 09:00 Fluoxetine HCl (PROzac) 20 mg DAILY PO Last administered on 06/05/16 08:19; Start 06/05/16 at 09:00 Gabapentin (Neurontin) 300 mg HS PO Last administered on 06/04/16 21:55; Start 06/04/16 at 21:00 Insulin Aspart Prota 70%/Aspart 30% (NovoLOG MIX 70/ 30 INJ) 85 units BID SQ Last administered on 06/04/16 21:00; Start 06/04/16 at 21:00 Lisinopril (Prinivil) 10 mg DAILY PO Last administered on 06/05/16 08:19; Start 06/05/16 at 09:00 Meclizine HCl (Antivert) 12.5 mg BID PRN PO VERTIGO; Start 06/04/16 at 17:15 Oxybutynin Chloride (Ditropan) 5 mg BID PO Last administered on 06/05/16 08:19 ; Start 06/04/16 at 21:00 Tramadol HCl (Ultram) 100 mg Q8HR PRN PO PAIN; Start 06/04/16 at 17:15 Trazodone HCl (Desyrel) 100 mg HS PO Last administered on 06/04/16 21:55; Start 06/04/16 at 21:00 Metformin HCl (Glucophage) 500 mg BID PO BSM Last administered on 06/04/16 21: 55; Start 06/04/16 at 21:00 Pantoprazole Sodium 40 mg 40 mg Q12H IV PUSH Last administered on 06/05/16 08: 00; Start 06/04/16 at 20:00 Sodium Chloride (NS 1000 ml Inj) 1,000 ml @ 100 mls/hr Q10H IV Last administered on 06/05/16 04:10; Start 06/04/16 at 17:08 Sodium Chloride (NS Flush) 2 ml UNSCH PRN IV FLUSH FLUSH AFTER USING IV ACCESS ; Start 06/04/16 at 17:15 Sodium Chloride (NS Flush) 2 ml BID IV FLUSH Last administered on 06/05/16 08: 11; Start 06/04/16 at 21:00 Ondansetron HCl (Zofran Inj) 4 mg Q6H PRN IVP NAUSEA OR VOMITING; Start at 17:15 Naloxone HCl (Narcan Inj) 0.4 mg UNSCH PRN IV SEE LABEL COMMENTS; Start at 17:15 Dextrose (D50w (Vial) Inj) 25 ml UNSCH PRN IV PUSH HYPOGLYCEMIA-SEE COMMENTS; Start 06/04/16 at 17:15 Glucagon (Glucagon Inj) 1 mg UNSCH PRN OTHER HYPOGLYCEMIA-SEE COMMENTS; Start 06/04/16 at 17:15 Insulin Aspart (NovoLOG SUPPLEMENTAL SCALE) 1 ACHS SLIDING SCALE SQ Last administered on 06/04/16 21:55; Start 06/04/16 at 21:00 Polyethylene Glycol/ Electrolytes (Colyte Liq) 4,000 ml ONCE ONCE PO ; Start at 16:00; Stop 06/05/16 at 16:01 A/P Assessment and Plan 65-year-old male with past medical history hypertension, hyperlipidemia, type 2 diabetes insulin-dependent who presented with an abnormal hemoglobin of 5.7 Severe anemia -Hemoglobin is 5.7 with a MCV of 69. Suspecting iron deficiency anemia from GI source.Patient is hemodynamically stable. Positive Hemoccult blood stools that was obtained in the ED. -GI consulted appreciate recommendation. -Patient was started on octreotide and Protonix gtt in the ED. I do not suspect any upper GI bleed since patient is asymptomatic so octreotide was discontinued. -Patient on Protonix twice a day. -Patient is on aspirin and Plavix will hold pending recommendation from GI. -Status transfusion of 2 units packed red blood cells on 06/04/2016 H went from 5.7 to 7.7 -EGD/Colonoscopy (02/18/07) that revealed hyperplastic polyp in sigmoid colon, reactive gastropathy, but the -Iron studies showed Iron 17, TIBC 575, Iron Saturation 3.0, Ferritin 8 suggesting iron deficiency anemia. -Patient is on a liquid diet and will have a EGD and colonoscopy done tomorrow. -Continue to trend H&H and monitor clinically. Hypertension, hyperlipidemia, type 2 diabetes, peripheral neuropathy, urinary urgency, questionable history of coronary artery disease -continue home medication except for aspirin and Plavix due to GI bleed. -Blood sugars have been running low will hold home doses of insulin. Also hold metformin. Continue with insulin sliding scale. Patient is also on the hypoglycemic protocol. DVT prophylaxis -Chemoprophylaxis contraindicated. -SCD/teds Discharge Planning Patient will have colonoscopy and EGD done tomorrow. If results does not require further management and hemoglobin remains stable possible discharge home tomorrow. Petrona Mahan MD Jun 05, 2016 11:35
[2016-06-05] MEDS ORDERED: PEG (High)/E-LYTE SOLN 4000 ML BTL PO ONE (16:00)
[2016-06-05] MEDS: GABAPENTIN 300 MG CAP PO SCH (20:17)
[2016-06-05] MEDS: traZODone HCL 100 MG TAB PO SCH (20:17)
[2016-06-05] MEDS: ATORVASTATIN 40 MG TAB PO SCH (20:17)
[2016-06-06] VITALS (7 sets, daily range): BP systolic 135–159; BP diastolic 62–74; PULSE 58–70; RESP 16–20; TEMP 97–98.4; O2SAT 96–99
[2016-06-06] MEDS: INSULIN ASPART SUPPLEMENTAL SCALE SQ SCH ×4 (05:25→21:32)
[2016-06-06 07:23] LABS: AUTOMATED NEUTROPHIL # 3.7 TH/MM3 (1.8-7.7); BASOPHIL # 0.1 TH/MM3 (0-0.2); BASOPHIL % 0.9 % (0.0-2.0); EOSINOPHIL # 0.2 TH/MM3 (0-0.4); EOSINOPHIL % 2.8 % (0.0-4.0); HEMATOCRIT 30.1 % (39.0-51.0); HEMO FLAGS AUTO DIFF; LYMPH % 30.1 % (9.0-44.0); MEAN CELL VOLUME 64.7 FL (80.0-100.0); MEAN CORPUSCULAR HEMOGLOBIN 18.7 PG (27.0-34.0); MONO % 11.1 % (0.0-8.0); NEUT % 55.1 % (16.0-70.0); PLATELET COUNT 279 TH/MM3 (150-450); RED BLOOD COUNT 4.66 MIL/MM3 (4.50-5.90); RED CELL DISTRIBUTION WIDTH 29.6 % (11.6-17.2); WHITE BLOOD COUNT 6.7 TH/MM3 (4.0-11.0)
[2016-06-06] MEDS: CYANOCOBALAMIN 1,000 MCG TAB PO SCH (08:02)
[2016-06-06] MEDS: LISINOPRIL 10 MG TAB PO SCH (08:02)
[2016-06-06] MEDS: FERROUS SULFATE 325 MG (65 MG ELEMENTAL IRON) TAB PO SCH (08:02)
[2016-06-06] MEDS: SODIUM CHLORIDE 0.9% FLUSH 10 ML FLUSH IV FLUSH SCH ×2 (08:14→20:55)
[2016-06-06] MEDS: FLUoxetine HCL 20 MG CAP PO SCH (08:14)
[2016-06-06] MEDS: PANTOPRAZOLE SODIUM 40 MG VIAL IV PUSH SCH ×2 (08:14→20:59)
[2016-06-06] MEDS: OXYBUTYNIN CHLORIDE 5 MG TAB PO SCH ×2 (08:14→20:54)
[2016-06-06 08:38] LABS: KERATOCYTES OCC (NORMAL); OVALOCYTES 1+ (NORMAL); PLATELET ESTIMATE SMEAR NORMAL (NORMAL); PLATELET MORPHOLOGY ENLARGED (NORMAL); SCAN/DIFF AUTO DIFF CONFIRMED
[2016-06-06 09:05] LABS: BICARBONATE 24.8 MEQ/L (21.0-32.0)
--- NOTE | 2016-06-06 16:08 | HHI.PR ---
Subjective Remarks Follow-up for anemia Patient had no episode GI bleed. Patient still nothing by mouth pending EGD and colonoscopy today. Patient has no complaints and anxious to go home. He denies any chest pain, shortness of breathing, palpitation, or any lightheadedness or dizziness. Objective Vitals Vital Signs Date Time Temp Pulse Resp B/P Pulse Ox O2 Delivery O2 Flow Rate FiO2 06/06/16 11:50 97.0 62 20 135/62 96 06/06/16 07:48 97.2 65 20 159/73 97 06/06/16 05:00 97.4 58 16 147/64 96 06/06/16 00:00 97.8 70 16 149/74 99 06/05/16 20:00 97.6 69 18 158/74 97 I/O 06/05/16 06/05/16 06/05/16 06/06/16 06/06/16 06/06/16 07:00 15:00 23:00 07:00 15:00 23:00 Intake Total 0 ml 1400 ml Balance 0 ml 1400 ml Intake Oral 0 ml 600 ml IV Total 800 ml # Voids 0 4 3 4 # Bowel Movements 2 2 Result Diagram: 06/06/16 0535 06/06/16 0830 Objective Remarks GENERAL: in NAD NECK: Supple, trachea midline. No JVD or lymphadenopathy. CARDIOVASCULAR: Regular rate and rhythm without murmurs, gallops, or rubs. RESPIRATORY: Breath sounds equal bilaterally. No accessory muscle use. GASTROINTESTINAL: Abdomen soft, non-tender, nondistended. Medications and IVs Current Medications Sodium Chloride 2 ml 2 ml UNSCH PRN IVF FLUSH AFTER USING IV ACCESS; Start at 15:15 Octreotide Acetate 500 mcg/ Sodium Chloride 500.5 ml @ 50 mls/hr Q10H IV ; Start 06/04/16 at 15:15; Stop 06/04/16 at 17:03; Status DC Pantoprazole Sodium 80 mg/ Sodium Chloride 35 ml @ 420 mls/hr ONCE ONCE IV Last administered on 06/04/16t 16:34; Start 06/04/16 at 15:15; Stop 06/04/16 at 15:19; Status DC Pantoprazole Sodium 80 mg/ Sodium Chloride 100 ml @ 10 mls/hr Q10H IV ; Start 06/04/16 at 15:15; Stop 06/04/16 at 17:03; Status DC Sodium Chloride (NS 250 ml Inj) 250 ml @ 15 mls/hr ONCE ONCE IV ; Start at 16:00; Stop 06/05/16 at 08:39; Status DC Albuterol Sulfate (Ventolin Hfa Inh) 2 puff Q6H PRN INH SHORTNESS OF BREATH; Start 06/04/16 at 17:15 Amlodipine Besylate (Norvasc) 10 mg DAILY PO Last administered on 06/06/16 08: 03; Start 06/05/16 at 09:00 Atorvastatin Calcium (Lipitor) 40 mg HS PO Last administered on 06/05/16 20:17 ; Start 06/04/16 at 21:00 Cyanocobalamin (Vitamin B12) 1,000 mcg DAILY PO Last administered on 06/06/16 08:02; Start 06/05/16 at 09:00 Ferrous Sulfate (Ferrous Sulfate) 325 mg DAILY PO Last administered on 08:02; Start 06/05/16 at 09:00 Fluoxetine HCl (PROzac) 20 mg DAILY PO Last administered on 06/06/16 08:14; Start 06/05/16 at 09:00 Gabapentin (Neurontin) 300 mg HS PO Last administered on 06/05/16 20:17; Start 06/04/16 at 21:00 Insulin Aspart Prota 70%/Aspart 30% (NovoLOG MIX 70/ 30 INJ) 85 units BID SQ Last administered on 06/04/16 21:00; Start 06/04/16 at 21:00; Stop 06/05/16 at 11:40; Status DC Lisinopril (Prinivil) 10 mg DAILY PO Last administered on 06/06/16 08:02; Start 06/05/16 at 09:00 Meclizine HCl (Antivert) 12.5 mg BID PRN PO VERTIGO; Start 06/04/16 at 17:15 Oxybutynin Chloride (Ditropan) 5 mg BID PO Last administered on 06/06/16 08:14 ; Start 06/04/16 at 21:00 Tramadol HCl (Ultram) 100 mg Q8HR PRN PO PAIN; Start 06/04/16 at 17:15 Trazodone HCl (Desyrel) 100 mg HS PO Last administered on 06/05/16 20:17; Start 06/04/16 at 21:00 Metformin HCl (Glucophage) 500 mg BID PO BSM Last administered on 06/04/16 21: 55; Start 06/04/16 at 21:00; Status Hold Pantoprazole Sodium 40 mg 40 mg Q12H IV PUSH Last administered on 06/06/16 08: 14; Start 06/04/16 at 20:00 Sodium Chloride (NS 1000 ml Inj) 1,000 ml @ 100 mls/hr Q10H IV Last administered on 06/05/16 23:08; Start 06/04/16 at 17:08 Sodium Chloride (NS Flush) 2 ml UNSCH PRN IV FLUSH FLUSH AFTER USING IV ACCESS ; Start 06/04/16 at 17:15 Sodium Chloride (NS Flush) 2 ml BID IV FLUSH Last administered on 06/05/16 08: 11; Start 06/04/16 at 21:00 Ondansetron HCl (Zofran Inj) 4 mg Q6H PRN IVP NAUSEA OR VOMITING; Start at 17:15 Naloxone HCl (Narcan Inj) 0.4 mg UNSCH PRN IV SEE LABEL COMMENTS; Start at 17:15 Dextrose (D50w (Vial) Inj) 25 ml UNSCH PRN IV PUSH HYPOGLYCEMIA-SEE COMMENTS; Start 06/04/16 at 17:15 Glucagon (Glucagon Inj) 1 mg UNSCH PRN OTHER HYPOGLYCEMIA-SEE COMMENTS; Start 06/04/16 at 17:15 Insulin Aspart (NovoLOG SUPPLEMENTAL SCALE) 1 ACHS SLIDING SCALE SQ Last administered on 06/04/16 21:55; Start 06/04/16 at 21:00 Polyethylene Glycol/ Electrolytes (Colyte Liq) 4,000 ml ONCE ONCE PO Last administered on 06/05/16 17:40; Start 06/05/16 at 16:00; Stop 06/05/16 at 16:01 ; Status DC A/P Assessment and Plan 65-year-old male with past medical history hypertension, hyperlipidemia, type 2 diabetes insulin-dependent who presented with an abnormal hemoglobin of 5.7 Severe anemia -Hemoglobin is 5.7 with a MCV of 69. Suspecting iron deficiency anemia from GI source.Patient is hemodynamically stable. Positive Hemoccult blood stools that was obtained in the ED. -GI consulted appreciate recommendation. -Patient was started on octreotide and Protonix gtt in the ED. I do not suspect any upper GI bleed since patient is asymptomatic so octreotide was discontinued. -Patient on Protonix twice a day. -Patient is on aspirin and Plavix will hold pending recommendation from GI. -Status transfusion of 2 units packed red blood cells on 06/04/2016 H went from 5.7 to 7.7 to 8.7 -EGD/Colonoscopy (02/18/07) that revealed hyperplastic polyp in sigmoid colon, reactive gastropathy, but the -Iron studies showed Iron 17, TIBC 575, Iron Saturation 3.0, Ferritin 8 suggesting iron deficiency anemia. -Patient is on a liquid diet and will have a EGD and colonoscopy to be done today. -Continue to trend H&H and monitor clinically. Hypertension, hyperlipidemia, type 2 diabetes, peripheral neuropathy, urinary urgency, questionable history of coronary artery disease -continue home medication except for aspirin and Plavix due to GI bleed. -Blood sugars have been running low will hold home doses of insulin. Also hold metformin. Continue with insulin sliding scale. Patient is also on the hypoglycemic protocol. DVT prophylaxis -Chemoprophylaxis contraindicated. -SCD/teds Discharge Planning Pending colonoscopy and EGD today. Based on results will determine further clinical course. Petrona Mahan MD Jun 06, 2016 16:08
--- NOTE | 2016-06-06 17:25 | EKG ---
Date Performed: 06/06/2016 Time Performed: 03:07:17 PTAGE: 65 years EKG: Sinus rhythm WITH SINUS ARRHYTHMIA NORMAL ECG Compared to prior study of 06/26/2009, non-specific T-wave changes h ave resolved. NO PREVIOUS TRACING DOCTOR: John Shen Interpretating Date/Time 06/06/2016 17:25:01
[2016-06-06] MEDS: ATORVASTATIN 40 MG TAB PO SCH (20:54)
[2016-06-06] MEDS: GABAPENTIN 300 MG CAP PO SCH (20:54)
[2016-06-06] MEDS: traZODone HCL 100 MG TAB PO SCH (20:54)
[2016-06-06] MEDS: SODIUM CHLOR 0.9% 1000 ML INJ 1,000 ML IV SCH (20:59)
--- NOTE | 2016-06-06 21:48 | HHI.GIFU ---
Subjective Remarks Comfortable in bed no new complaints Objective Vitals I&O Vital Signs Date Time Temp Pulse Resp B/P Pulse Ox O2 Delivery O2 Flow Rate FiO2 06/06/16 20:00 98.3 66 17 135/67 99 06/06/16 15:50 98.4 61 20 138/67 99 06/06/16 11:50 97.0 62 20 135/62 96 06/06/16 07:48 97.2 65 20 159/73 97 06/06/16 05:00 97.4 58 16 147/64 96 06/06/16 00:00 97.8 70 16 149/74 99 I/O 06/05/16 06/05/16 06/05/16 06/06/16 06/06/16 06/06/16 07:00 15:00 23:00 07:00 15:00 23:00 Intake Total 0 ml 1400 ml 442 ml 1150 ml Output Total 400 ml Balance 0 ml 1400 ml 442 ml 750 ml Intake Oral 0 ml 600 ml 442 ml 250 ml IV Total 800 ml 900 ml Output Urine Total 400 ml # Voids 0 4 3 4 5 # Bowel Movements 2 2 1 Laboratory Laboratory Tests Test 06/06/16 06/06/16 05:35 08:30 White Blood Count 6.7 Red Blood Count 4.66 Hemoglobin 8.7 Hematocrit 30.1 Mean Corpuscular Volume 64.7 Mean Corpuscular Hemoglobin 18.7 Mean Corpuscular Hemoglobin 29.0 Concent Red Cell Distribution Width 29.6 Platelet Count 279 Mean Platelet Volume 8.6 Neutrophils (%) (Auto) 55.1 Lymphocytes (%) (Auto) 30.1 Monocytes (%) (Auto) 11.1 Eosinophils (%) (Auto) 2.8 Basophils (%) (Auto) 0.9 Neutrophils # (Auto) 3.7 Lymphocytes # (Auto) 2.0 Monocytes # (Auto) 0.7 Eosinophils # (Auto) 0.2 Basophils # (Auto) 0.1 CBC Comment AUTO DIFF Differential Comment AUTO DIFF CONFIRMED Platelet Estimate NORMAL Platelet Morphology Comment ENLARGED Basophilic Stippling FAINT Ovalocytes 1+ Keratocytes OCC Hematology Comments Sodium Level 140 Potassium Level 4.0 Chloride Level 108 Carbon Dioxide Level 24.8 Anion Gap 7 Blood Urea Nitrogen 9 Creatinine 0.95 Estimat Glomerular Filtration 80 Rate Random Glucose 134 Calcium Level 8.0 Physical Exam HEENT: Normocephalic throat is clear NECK: Neck is supple, CHEST: Chest is clear to auscultation and percussion. CARDIAC: Regular rate and rhythm with no murmur gallop or rubs. ABDOMEN: Soft, nondistended, nontender; no hepatosplenomegaly; bowel sounds are present in all four quadrants. EXTREMITIES: No clubbing, cyanosis, or edema. SKIN: Normal; no rash; no jaundice. CLAIM ATTORNEY: No focal deficits; alert and oriented times three. Assessment and Plan Plan ASSESSMENT: - Severe iron deficiency anemia. Pt very poor historian and denies any obvious GI bleeding. He also denies blood thinners or NSAID use, but according to EMR, he is on Plavix and ASA. He states he quit drinking etoh 10 years ago, but was a heavy drinker prior to that. He denies any hx of PUD. He reported earlier that he had a colonoscopy within the past year, but he is denying ever having one to me. Review of outpatient records show a pathology report from EGD/Colonoscopy (02/18/07) that revealed hyperplastic polyp in sigmoid colon, reactive gastropathy, but the actual procedure report not available. HH of 5.7/20.5 on admission. S/P 2 units of PRBC and this is now 7.7/25.3. Iron 17, TIBC 575, Iron Saturation 3.0, Ferritin 8. Protonix 40mg IV BID. Here is on a regular diet, but has not started on his breakfast yet. Of note, he had a solid brown stool while I was in the room. - Hypertension, Hyperlipidemia, Type 2 diabetes, Peripheral neuropathy, Depression, Questionable coronary artery disease. Per primary PLAN: - Plan for egd/colonoscopy in am he apparently was not able to finish his prep yesterday and therefore this is delayed until tomorrow - Obtain consents - Clear liquids - NPO after MN - Golytely prep - PPI - Monitor HH - Transfuse as necessary - Supportive care - FUrther recommendations to follow based on results of above Roverto Edmondson MD Jun 06, 2016 21:48
[2016-06-06] MEDS ORDERED: MAGNESIUM CITRATE SOLN 300 ML BTL PO ONE (22:00)
[2016-06-07] VITALS (8 sets, daily range): BP systolic 104–166; BP diastolic 64–80; PULSE 56–80; RESP 16–20; TEMP 96.2–98.6; O2SAT 95–99
[2016-06-07] MEDS: SODIUM CHLOR 0.9% 1000 ML INJ 1,000 ML IV SCH ×2 (05:06→17:32)
[2016-06-07] MEDS: INSULIN ASPART SUPPLEMENTAL SCALE SQ SCH ×4 (06:25→22:00)
[2016-06-07] MEDS: CYANOCOBALAMIN 1,000 MCG TAB PO SCH (10:04)
[2016-06-07] MEDS: FLUoxetine HCL 20 MG CAP PO SCH (10:04)
[2016-06-07] MEDS: OXYBUTYNIN CHLORIDE 5 MG TAB PO SCH ×2 (10:04→20:27)
[2016-06-07] MEDS: FERROUS SULFATE 325 MG (65 MG ELEMENTAL IRON) TAB PO SCH (10:04)
[2016-06-07] MEDS: SODIUM CHLORIDE 0.9% FLUSH 10 ML FLUSH IV FLUSH SCH ×2 (10:05→20:26)
[2016-06-07] MEDS: PANTOPRAZOLE SODIUM 40 MG VIAL IV PUSH SCH ×2 (10:05→20:26)
[2016-06-07] MEDS: LISINOPRIL 10 MG TAB PO SCH (10:05)
[2016-06-07 13:56] LABS: MEAN CORPUSCULAR HGB CONC 29.3 % (32.0-36.0)
--- NOTE | 2016-06-07 13:58 | HHI.PR ---
Subjective Remarks Follow-up for severe anemia. No episodes of any GI bleed. Patient has no complaints. Denying chest pain, SOB, palpitation, lightheadedness/ dizziness. Patient is still waiting for his EGD colonoscopy today. Objective Vitals Vital Signs Date Time Temp Pulse Resp B/P Pulse Ox O2 Delivery O2 Flow Rate FiO2 06/07/16 12:00 96.6 80 18 152/80 97 06/07/16 08:00 97.2 76 20 163/74 99 06/07/16 07:18 57 06/07/16 04:00 98.4 56 16 141/64 95 06/07/16 00:00 98.6 65 17 104/65 95 06/06/16 20:14 68 06/06/16 20:00 98.3 66 17 135/67 99 06/06/16 15:50 98.4 61 20 138/67 99 I/O 06/06/16 06/06/16 06/06/16 06/07/16 06/07/16 06/07/16 06:59 14:59 22:59 06:59 14:59 22:59 Intake Total 442 ml 2480 ml 800 ml Output Total 400 ml Balance 442 ml 2080 ml 800 ml Intake Oral 442 ml 730 ml 0 ml IV Total 1750 ml 800 ml Output Urine Total 400 ml # Voids 4 5 2 2 # Bowel Movements 2 1 2 2 Result Diagram: 06/06/16 0535 06/06/16 0830 Objective Remarks GENERAL: in NAD NECK: Supple, trachea midline. No JVD or lymphadenopathy. CARDIOVASCULAR: Regular rate and rhythm without murmurs, gallops, or rubs. RESPIRATORY: Breath sounds equal bilaterally. No accessory muscle use. GASTROINTESTINAL: Abdomen soft, non-tender, nondistended. Medications and IVs Current Medications Sodium Chloride 2 ml 2 ml UNSCH PRN IVF FLUSH AFTER USING IV ACCESS; Start at 15:15 Octreotide Acetate 500 mcg/ Sodium Chloride 500.5 ml @ 50 mls/hr Q10H IV ; Start 06/04/16 at 15:15; Stop 06/04/16 at 17:03; Status DC Pantoprazole Sodium 80 mg/ Sodium Chloride 35 ml @ 420 mls/hr ONCE ONCE IV Last administered on 06/04/16t 16:34; Start 06/04/16 at 15:15; Stop 06/04/16 at 15:19; Status DC Pantoprazole Sodium 80 mg/ Sodium Chloride 100 ml @ 10 mls/hr Q10H IV ; Start 06/04/16 at 15:15; Stop 06/04/16 at 17:03; Status DC Sodium Chloride (NS 250 ml Inj) 250 ml @ 15 mls/hr ONCE ONCE IV ; Start at 16:00; Stop 06/05/16 at 08:39; Status DC Albuterol Sulfate (Ventolin Hfa Inh) 2 puff Q6H PRN INH SHORTNESS OF BREATH; Start 06/04/16 at 17:15 Amlodipine Besylate (Norvasc) 10 mg DAILY PO Last administered on 06/07/16 10: 04; Start 06/05/16 at 09:00 Atorvastatin Calcium (Lipitor) 40 mg HS PO Last administered on 06/06/16 20:54 ; Start 06/04/16 at 21:00 Cyanocobalamin (Vitamin B12) 1,000 mcg DAILY PO Last administered on 06/07/16 10:04; Start 06/05/16 at 09:00 Ferrous Sulfate (Ferrous Sulfate) 325 mg DAILY PO Last administered on 10:04; Start 06/05/16 at 09:00 Fluoxetine HCl (PROzac) 20 mg DAILY PO Last administered on 06/07/16 10:04; Start 06/05/16 at 09:00 Gabapentin (Neurontin) 300 mg HS PO Last administered on 06/06/16 20:54; Start 06/04/16 at 21:00 Insulin Aspart Prota 70%/Aspart 30% (NovoLOG MIX 70/ 30 INJ) 85 units BID SQ Last administered on 06/04/16 21:00; Start 06/04/16 at 21:00; Stop 06/05/16 at 11:40; Status DC Lisinopril (Prinivil) 10 mg DAILY PO Last administered on 06/07/16 10:05; Start 06/05/16 at 09:00 Meclizine HCl (Antivert) 12.5 mg BID PRN PO VERTIGO; Start 06/04/16 at 17:15 Oxybutynin Chloride (Ditropan) 5 mg BID PO Last administered on 06/07/16 10:04 ; Start 06/04/16 at 21:00 Tramadol HCl (Ultram) 100 mg Q8HR PRN PO PAIN; Start 06/04/16 at 17:15 Trazodone HCl (Desyrel) 100 mg HS PO Last administered on 06/06/16 20:54; Start 06/04/16 at 21:00 Metformin HCl (Glucophage) 500 mg BID PO BSM Last administered on 06/04/16 21: 55; Start 06/04/16 at 21:00; Status Hold Pantoprazole Sodium 40 mg 40 mg Q12H IV PUSH Last administered on 06/07/16 10: 05; Start 06/04/16 at 20:00 Sodium Chloride (NS 1000 ml Inj) 1,000 ml @ 100 mls/hr Q10H IV Last administered on 06/07/16 05:06; Start 06/04/16 at 17:08 Sodium Chloride (NS Flush) 2 ml UNSCH PRN IV FLUSH FLUSH AFTER USING IV ACCESS ; Start 06/04/16 at 17:15 Sodium Chloride (NS Flush) 2 ml BID IV FLUSH Last administered on 06/06/16 20: 55; Start 06/04/16 at 21:00 Ondansetron HCl (Zofran Inj) 4 mg Q6H PRN IVP NAUSEA OR VOMITING; Start at 17:15 Naloxone HCl (Narcan Inj) 0.4 mg UNSCH PRN IV SEE LABEL COMMENTS; Start at 17:15 Dextrose (D50w (Vial) Inj) 25 ml UNSCH PRN IV PUSH HYPOGLYCEMIA-SEE COMMENTS; Start 06/04/16 at 17:15 Glucagon (Glucagon Inj) 1 mg UNSCH PRN OTHER HYPOGLYCEMIA-SEE COMMENTS; Start 06/04/16 at 17:15 Insulin Aspart (NovoLOG SUPPLEMENTAL SCALE) 1 ACHS SLIDING SCALE SQ Last administered on 06/07/16 12:44; Start 06/04/16 at 21:00 Polyethylene Glycol/ Electrolytes (Colyte Liq) 4,000 ml ONCE ONCE PO Last administered on 06/05/16 17:40; Start 06/05/16 at 16:00; Stop 06/05/16 at 16:01 ; Status DC Magnesium Citrate (Citroma Liq) 300 ml ONCE ONCE PO Last administered on 4/27/ 17at 22:53; Start 06/06/16 at 22:00; Stop 06/06/16 at 22:01; Status DC A/P Assessment and Plan 65-year-old male with past medical history hypertension, hyperlipidemia, type 2 diabetes insulin-dependent who presented with an abnormal hemoglobin of 5.7 Severe anemia -Hemoglobin is 5.7 with a MCV of 69. Suspecting iron deficiency anemia from GI source.Patient is hemodynamically stable. Positive Hemoccult blood stools that was obtained in the ED. -GI consulted appreciate recommendation. -Patient was started on octreotide and Protonix gtt in the ED. I do not suspect any upper GI bleed since patient is asymptomatic so octreotide was discontinued. -Patient on Protonix twice a day. -Patient is on aspirin and Plavix will hold pending recommendation from GI. -Status transfusion of 2 units packed red blood cells on 06/04/2016 H went from 5.7 to 7.7 to 8.7 -EGD/Colonoscopy (02/18/07) that revealed hyperplastic polyp in sigmoid colon, reactive gastropathy, but the -Iron studies showed Iron 17, TIBC 575, Iron Saturation 3.0, Ferritin 8 suggesting iron deficiency anemia. -Patient is postop a colonoscopy done today. -Continue to trend H&H and monitor clinically. Hypertension, hyperlipidemia, type 2 diabetes, peripheral neuropathy, urinary urgency, questionable history of coronary artery disease -continue home medication except for aspirin and Plavix due to GI bleed. -Blood sugars have been running low will hold home doses of insulin. Also hold metformin. Continue with insulin sliding scale. Patient is also on the hypoglycemic protocol. DVT prophylaxis -Chemoprophylaxis contraindicated. -SCD/teds Discharge Planning Patient did not complete prep yesterday so pending colonoscopy and EGD today. Petrona Mahan MD Jun 07, 2016 13:58
--- NOTE | 2016-06-07 15:18 | HHI.GIFU ---
Subjective Remarks Patient is resting in bed, no nausea, no vomiting, no abd pain. (Humble Deng) Objective Vitals I&O Vital Signs Date Time Temp Pulse Resp B/P Pulse Ox O2 Delivery O2 Flow Rate FiO2 06/07/16 12:00 96.6 80 18 152/80 97 06/07/16 08:00 97.2 76 20 163/74 99 06/07/16 07:18 57 06/07/16 04:00 98.4 56 16 141/64 95 06/07/16 00:00 98.6 65 17 104/65 95 06/06/16 20:14 68 06/06/16 20:00 98.3 66 17 135/67 99 06/06/16 15:50 98.4 61 20 138/67 99 I/O 06/06/16 06/06/16 06/06/16 06/07/16 06/07/16 06/07/16 07:00 15:00 23:00 07:00 15:00 23:00 Intake Total 442 ml 2480 ml 800 ml 120 ml Output Total 400 ml Balance 442 ml 2080 ml 800 ml 120 ml Intake Oral 442 ml 730 ml 0 ml 120 ml IV Total 1750 ml 800 ml Output Urine Total 400 ml # Voids 4 5 2 2 2 # Bowel Movements 2 1 2 2 1 Physical Exam HEENT: Normocephalic throat is clear NECK: Neck is supple, CHEST: Chest is clear to auscultation and percussion. CARDIAC: Regular rate and rhythm with no murmur gallop or rubs. ABDOMEN: Soft, nondistended, nontender; no hepatosplenomegaly; bowel sounds are present in all four quadrants. EXTREMITIES: No clubbing, cyanosis, or edema. SKIN: Normal; no rash; no jaundice. AUTOMATIC EDGER: confused, alert (Humble Deng LIQUEFIER) Assessment and Plan Plan ASSESSMENT: - Severe iron deficiency anemia. Pt very poor historian and denies any obvious GI bleeding. He also denies blood thinners or NSAID use, but according to EMR, he is on Plavix and ASA. He states he quit drinking etoh 10 years ago, but was a heavy drinker prior to that. He denies any hx of PUD. He reported earlier that he had a colonoscopy within the past year, but he is denying ever having one to me. Review of outpatient records show a pathology report from EGD/Colonoscopy (02/18/07) that revealed hyperplastic polyp in sigmoid colon, reactive gastropathy, but the actual procedure report not available. HH of 5.7/20.5 on admission. S/P 2 units of PRBC and this is now 7.7/25.3. Iron 17, TIBC 575, Iron Saturation 3.0, Ferritin 8. Protonix 40mg IV BID. Here is on a regular diet, but has not started on his breakfast yet. Of note, he had a solid brown stool while I was in the room. - Hypertension, Hyperlipidemia, Type 2 diabetes, Peripheral neuropathy, Depression, Questionable coronary artery disease. Per primary 06/07/16 Consents obtained today from , will plan for EGD/colonoscopy tomorrow No obvious bleeding reported, no hh today PLAN: - Plan for egd/colonoscopy in am - Obtain consents - Clear liquids - NPO after MN - Golytely prep - PPI - Monitor HH - Transfuse as necessary - Supportive care - FUrther recommendations to follow based on results of above - Patient seen and examined by Dr. Edmondson and myself and this note is written on his behalf. (Humble Deng) Physician Comments Patient seen and examined Agree with above Continue with current supportive care Monitor labs Endoscopy tomorrow (Roverto Edmondson MD) Humble Deng Jun 07, 2016 15:18 Roverto Edmondson MD Jun 07, 2016 22:47
[2016-06-07 15:28] LABS: HEMATOCRIT 28.3 % (39.0-51.0); MEAN CELL VOLUME 63.3 FL (80.0-100.0); MEAN CORPUSCULAR HEMOGLOBIN 18.6 PG (27.0-34.0); PLATELET COUNT 233 TH/MM3 (150-450); RED BLOOD COUNT 4.46 MIL/MM3 (4.50-5.90); RED CELL DISTRIBUTION WIDTH 30.2 % (11.6-17.2); WHITE BLOOD COUNT 5.4 TH/MM3 (4.0-11.0)
[2016-06-07 15:29] LABS: REVIEW FLAG FINAL
[2016-06-07] MEDS ORDERED: PEG (High)/E-LYTE SOLN 4000 ML BTL PO ONE (15:30)
[2016-06-07] MEDS: ATORVASTATIN 40 MG TAB PO SCH (20:26)
[2016-06-07] MEDS: GABAPENTIN 300 MG CAP PO SCH (20:27)
[2016-06-07] MEDS: traZODone HCL 100 MG TAB PO SCH (20:27)
[2016-06-07 21:10] LABS: MEAN CORPUSCULAR HGB CONC 29.8 % (32.0-36.0)
[2016-06-08] VITALS (8 sets, daily range): BP systolic 123–172; BP diastolic 57–74; PULSE 59–77; RESP 18; TEMP 96.4–98.8; O2SAT 95–99
[2016-06-08] MEDS: INSULIN ASPART SUPPLEMENTAL SCALE SQ SCH ×4 (06:33→21:00)
[2016-06-08] MEDS: SODIUM CHLOR 0.9% 1000 ML INJ 1,000 ML IV SCH ×3 (06:33→20:43)
[2016-06-08 08:06] LABS: HEMATOCRIT 25.9 % (39.0-51.0); MEAN CELL VOLUME 64.4 FL (80.0-100.0); MEAN CORPUSCULAR HEMOGLOBIN 19.2 PG (27.0-34.0); PLATELET COUNT 229 TH/MM3 (150-450); RED BLOOD COUNT 4.03 MIL/MM3 (4.50-5.90); RED CELL DISTRIBUTION WIDTH 28.5 % (11.6-17.2); WHITE BLOOD COUNT 4.4 TH/MM3 (4.0-11.0)
[2016-06-08 08:16] LABS: REVIEW FLAG FINAL
[2016-06-08] MEDS: OXYBUTYNIN CHLORIDE 5 MG TAB PO SCH ×2 (09:11→20:39)
[2016-06-08] MEDS: SODIUM CHLORIDE 0.9% FLUSH 10 ML FLUSH IV FLUSH SCH ×2 (09:11→20:39)
[2016-06-08] MEDS: PANTOPRAZOLE SODIUM 40 MG VIAL IV PUSH SCH ×2 (09:11→20:37)
[2016-06-08] MEDS: LISINOPRIL 10 MG TAB PO SCH (09:11)
--- NOTE | 2016-06-08 16:19 | HHI.PR ---
Subjective Remarks f/u for GI bleed. patient denied any GI bleed. He is AAO X 3. he is able to give me his name, date, and location. His response is slow but this is his baseline. Objective Vitals Vital Signs Date Time Temp Pulse Resp B/P Pulse Ox O2 Delivery O2 Flow Rate FiO2 06/08/16 12:56 97.7 63 18 123/57 96 06/08/16 09:10 97.2 65 18 150/66 95 06/08/16 04:00 97.2 59 18 170/74 98 06/08/16 00:00 96.4 64 18 172/74 99 06/07/16 21:17 70 06/07/16 20:00 96.2 68 17 166/74 98 I/O 06/07/16 06/07/16 06/07/16 06/08/16 06/08/16 06/08/16 07:00 15:00 23:00 07:00 15:00 23:00 Intake Total 800 ml 120 ml 800 ml 800 ml Output Total 950 ml Balance 800 ml 120 ml 800 ml -150 ml Intake Oral 0 ml 120 ml IV Total 800 ml 800 ml 800 ml Output Urine Total 950 ml # Voids 2 2 1 # Bowel Movements 2 1 2 Result Diagram: 06/08/16 0732 06/06/16 0830 Objective Remarks GENERAL: in NAD NECK: Supple, trachea midline. No JVD or lymphadenopathy. CARDIOVASCULAR: Regular rate and rhythm without murmurs, gallops, or rubs. RESPIRATORY: Breath sounds equal bilaterally. No accessory muscle use. GASTROINTESTINAL: Abdomen soft, non-tender, nondistended. Medications and IVs Current Medications Sodium Chloride 2 ml 2 ml UNSCH PRN IVF FLUSH AFTER USING IV ACCESS; Start at 15:15; Stop 06/08/16 at 16:05; Status DC Octreotide Acetate 500 mcg/ Sodium Chloride 500.5 ml @ 50 mls/hr Q10H IV ; Start 06/04/16 at 15:15; Stop 06/04/16 at 17:03; Status DC Pantoprazole Sodium 80 mg/ Sodium Chloride 35 ml @ 420 mls/hr ONCE ONCE IV Last administered on 06/04/16t 16:34; Start 06/04/16 at 15:15; Stop 06/04/16 at 15:19; Status DC Pantoprazole Sodium 80 mg/ Sodium Chloride 100 ml @ 10 mls/hr Q10H IV ; Start 06/04/16 at 15:15; Stop 06/04/16 at 17:03; Status DC Sodium Chloride (NS 250 ml Inj) 250 ml @ 15 mls/hr ONCE ONCE IV ; Start at 16:00; Stop 06/05/16 at 08:39; Status DC Albuterol Sulfate (Ventolin Hfa Inh) 2 puff Q6H PRN INH SHORTNESS OF BREATH; Start 06/04/16 at 17:15 Amlodipine Besylate (Norvasc) 10 mg DAILY PO Last administered on 06/08/16 09: 11; Start 06/05/16 at 09:00 Atorvastatin Calcium (Lipitor) 40 mg HS PO Last administered on 06/07/16 20:26 ; Start 06/04/16 at 21:00 Cyanocobalamin (Vitamin B12) 1,000 mcg DAILY PO Last administered on 06/07/16 10:04; Start 06/05/16 at 09:00 Ferrous Sulfate (Ferrous Sulfate) 325 mg DAILY PO Last administered on 10:04; Start 06/05/16 at 09:00 Fluoxetine HCl (PROzac) 20 mg DAILY PO Last administered on 06/07/16 10:04; Start 06/05/16 at 09:00 Gabapentin (Neurontin) 300 mg HS PO Last administered on 06/07/16 20:27; Start 06/04/16 at 21:00 Insulin Aspart Prota 70%/Aspart 30% (NovoLOG MIX 70/ 30 INJ) 85 units BID SQ Last administered on 06/04/16 21:00; Start 06/04/16 at 21:00; Stop 06/05/16 at 11:40; Status DC Lisinopril (Prinivil) 10 mg DAILY PO Last administered on 06/08/16 09:11; Start 06/05/16 at 09:00 Meclizine HCl (Antivert) 12.5 mg BID PRN PO VERTIGO; Start 06/04/16 at 17:15 Oxybutynin Chloride (Ditropan) 5 mg BID PO Last administered on 06/08/16 09:11 ; Start 06/04/16 at 21:00 Tramadol HCl (Ultram) 100 mg Q8HR PRN PO PAIN; Start 06/04/16 at 17:15 Trazodone HCl (Desyrel) 100 mg HS PO Last administered on 06/07/16 20:27; Start 06/04/16 at 21:00 Metformin HCl (Glucophage) 500 mg BID PO BSM Last administered on 06/04/16 21: 55; Start 06/04/16 at 21:00; Status Hold Pantoprazole Sodium 40 mg 40 mg Q12H IV PUSH Last administered on 06/08/16 09: 11; Start 06/04/16 at 20:00 Sodium Chloride (NS 1000 ml Inj) 1,000 ml @ 100 mls/hr Q10H IV Last administered on 06/08/16 06:33; Start 06/04/16 at 17:08 Sodium Chloride (NS Flush) 2 ml UNSCH PRN IV FLUSH FLUSH AFTER USING IV ACCESS ; Start 06/04/16 at 17:15 Sodium Chloride (NS Flush) 2 ml BID IV FLUSH Last administered on 06/08/16 09: 11; Start 06/04/16 at 21:00 Ondansetron HCl (Zofran Inj) 4 mg Q6H PRN IVP NAUSEA OR VOMITING; Start at 17:15 Naloxone HCl (Narcan Inj) 0.4 mg UNSCH PRN IV SEE LABEL COMMENTS; Start at 17:15 Dextrose (D50w (Vial) Inj) 25 ml UNSCH PRN IV PUSH HYPOGLYCEMIA-SEE COMMENTS; Start 06/04/16 at 17:15 Glucagon (Glucagon Inj) 1 mg UNSCH PRN OTHER HYPOGLYCEMIA-SEE COMMENTS; Start 06/04/16 at 17:15 Insulin Aspart (NovoLOG SUPPLEMENTAL SCALE) 1 ACHS SLIDING SCALE SQ Last administered on 06/07/16 12:44; Start 06/04/16 at 21:00 Polyethylene Glycol/ Electrolytes (Colyte Liq) 4,000 ml ONCE ONCE PO Last administered on 06/05/16 17:40; Start 06/05/16 at 16:00; Stop 06/05/16 at 16:01 ; Status DC Magnesium Citrate (Citroma Liq) 300 ml ONCE ONCE PO Last administered on 22:53; Start 06/06/16 at 22:00; Stop 06/06/16 at 22:01; Status DC Polyethylene Glycol/ Electrolytes (Colyte Liq) 4,000 ml ONCE ONCE PO Last administered on 06/07/16t 17:31; Start 06/07/16 at 15:30; Stop 06/07/16 at 15:31 ; Status DC Magnesium Citrate (Citroma Liq) 300 ml ONCE ONCE PO ; Start 06/08/16 at 20:00; Stop 06/08/16 at 20:01 A/P Assessment and Plan 65-year-old male with past medical history hypertension, hyperlipidemia, type 2 diabetes insulin-dependent who presented with an abnormal hemoglobin of 5.7 Severe anemia -Hemoglobin is 5.7 with a MCV of 69. Suspecting iron deficiency anemia from GI source.Patient is hemodynamically stable. Positive Hemoccult blood stools that was obtained in the ED. -GI consulted appreciate recommendation. -Patient was started on octreotide and Protonix gtt in the ED. I do not suspect any upper GI bleed since patient is asymptomatic so octreotide was discontinued. -Patient on Protonix twice a day. -Patient is on aspirin and Plavix will hold pending recommendation from GI. -Status transfusion of 2 units packed red blood cells on 06/04/2016 H went from 5.7 to 7.7 to 8.7 -EGD/Colonoscopy (02/18/07) that revealed hyperplastic polyp in sigmoid colon, reactive gastropathy, but the -Iron studies showed Iron 17, TIBC 575, Iron Saturation 3.0, Ferritin 8 suggesting iron deficiency anemia. -Continue to trend H&H and monitor clinically. -still waiting for colonoscopy/EGD to be done. Per nurse GI stated no room in the OR so he is scheduled for tomorrow. Hypertension, hyperlipidemia, type 2 diabetes, peripheral neuropathy, urinary urgency, questionable history of coronary artery disease -continue home medication except for aspirin and Plavix due to GI bleed. -due to low BS insulin and metformin held. Continue with insulin sliding scale. Patient is also on the hypoglycemic protocol. DVT prophylaxis -Chemoprophylaxis contraindicated. -SCD/teds Discharge Planning No OR available patient will have EGD/Colonoscopy done tomorrow. possible d/c tomorrow pending EGD/colonoscopy. Petrona Mahan MD Jun 08, 2016 16:19
[2016-06-08] MEDS: FLUoxetine HCL 20 MG CAP PO SCH (16:49)
[2016-06-08] MEDS: FERROUS SULFATE 325 MG (65 MG ELEMENTAL IRON) TAB PO SCH (16:49)
[2016-06-08] MEDS: CYANOCOBALAMIN 1,000 MCG TAB PO SCH (16:49)
[2016-06-08] MEDS ORDERED: MAGNESIUM CITRATE SOLN 300 ML BTL PO ONE (20:00)
[2016-06-08] MEDS: traZODone HCL 100 MG TAB PO SCH (20:39)
[2016-06-08] MEDS: GABAPENTIN 300 MG CAP PO SCH (20:39)
[2016-06-08] MEDS: ATORVASTATIN 40 MG TAB PO SCH (20:39)
[2016-06-08 21:11] LABS: MEAN CORPUSCULAR HGB CONC 29.1 % (32.0-36.0)
--- NOTE | 2016-06-08 23:32 | HHI.GIFU ---
Subjective Remarks Comfortable in bed no complaints Objective Vitals I&O Vital Signs Date Time Temp Pulse Resp B/P Pulse Ox O2 Delivery O2 Flow Rate FiO2 06/08/16 20:00 98.8 69 18 135/67 96 06/08/16 18:17 96.9 77 18 126/68 95 06/08/16 12:56 97.7 63 18 123/57 96 06/08/16 09:10 97.2 65 18 150/66 95 06/08/16 04:00 97.2 59 18 170/74 98 06/08/16 00:00 96.4 64 18 172/74 99 I/O 06/07/16 06/07/16 06/07/16 06/08/16 06/08/16 06/08/16 07:00 15:00 23:00 07:00 15:00 23:00 Intake Total 800 ml 120 ml 800 ml 800 ml 976 ml Output Total 950 ml Balance 800 ml 120 ml 800 ml -150 ml 976 ml Intake Oral 0 ml 120 ml IV Total 800 ml 800 ml 800 ml 976 ml Output Urine Total 950 ml # Voids 2 2 1 # Bowel Movements 2 1 2 1 Laboratory Laboratory Tests Test 06/08/16 07:32 White Blood Count 4.4 Red Blood Count 4.03 Hemoglobin 7.7 Hematocrit 25.9 Mean Corpuscular Volume 64.4 Mean Corpuscular Hemoglobin 19.2 Mean Corpuscular Hemoglobin 29.8 Concent Red Cell Distribution Width 28.5 Platelet Count 229 Mean Platelet Volume 8.4 Physical Exam HEENT: Normocephalic throat is clear NECK: Neck is supple, CHEST: Chest is clear to auscultation and percussion. CARDIAC: Regular rate and rhythm with no murmur gallop or rubs. ABDOMEN: Soft, nondistended, nontender; no hepatosplenomegaly; bowel sounds are present in all four quadrants. EXTREMITIES: No clubbing, cyanosis, or edema. SKIN: Normal; no rash; no jaundice. FREIGHT RECEIVER: confused, alert Assessment and Plan Plan ASSESSMENT: - Severe iron deficiency anemia. Pt very poor historian and denies any obvious GI bleeding. He also denies blood thinners or NSAID use, but according to EMR, he is on Plavix and ASA. He states he quit drinking etoh 10 years ago, but was a heavy drinker prior to that. He denies any hx of PUD. He reported earlier that he had a colonoscopy within the past year, but he is denying ever having one to me. Review of outpatient records show a pathology report from EGD/Colonoscopy (02/18/07) that revealed hyperplastic polyp in sigmoid colon, reactive gastropathy, but the actual procedure report not available. HH of 5.7/20.5 on admission. S/P 2 units of PRBC and this is now 7.7/25.3. Iron 17, TIBC 575, Iron Saturation 3.0, Ferritin 8. Protonix 40mg IV BID. Here is on a regular diet, but has not started on his breakfast yet. Of note, he had a solid brown stool while I was in the room. - Hypertension, Hyperlipidemia, Type 2 diabetes, Peripheral neuropathy, Depression, Questionable coronary artery disease. Per primary 06/07/16 Consents obtained today from , will plan for EGD/colonoscopy tomorrow No obvious bleeding reported, no hh today PLAN: - Plan for egd/colonoscopy in am - Obtain consents - Clear liquids - NPO after MN - Golytely prep - PPI - Monitor HH - Transfuse as necessary - Supportive care - FUrther recommendations to follow based on results of above Roverto Edmondson MD Jun 08, 2016 23:31
[2016-06-09] VITALS (7 sets, daily range): BP systolic 136–170; BP diastolic 64–70; PULSE 60–76; RESP 16–20; TEMP 96.4–97.8; O2SAT 94–98
[2016-06-09] MEDS: INSULIN ASPART SUPPLEMENTAL SCALE SQ SCH ×4 (05:13→20:27)
[2016-06-09] MEDS: SODIUM CHLOR 0.9% 1000 ML INJ 1,000 ML IV SCH ×2 (05:14→17:03)
--- NOTE | 2016-06-09 08:29 | HHI.PR ---
Subjective Remarks This is a pleasant 65-year-old male with Hypertension, Hyperlipidemia, DM II, Peripheral Neuropathy, Urinary urgency, sent to ER by PCP due to abnormal hemoglobin in 5.7, Followed by GI specialist with diagnosis of Severe Iron deficiency Anemia, he is on Plavix and ASA, Alcohol abuse, status post two units of PRBC, Seen in his bedroom and discussed with nurse awaiting for EGD and Colonoscopy later today. No nausea, vomit or diarrhea , no signs of hemorrhage. Objective Vital Signs Date Time Temp Pulse Resp B/P Pulse Ox O2 Delivery O2 Flow Rate FiO2 06/09/16 04:00 96.9 62 17 136/67 97 06/09/16 00:00 97.4 61 17 141/65 96 06/08/16 20:09 71 06/08/16 20:00 98.8 69 18 135/67 96 06/08/16 19:23 65 06/08/16 18:17 96.9 77 18 126/68 95 06/08/16 12:56 97.7 63 18 123/57 96 06/08/16 09:10 97.2 65 18 150/66 95 I/O 06/08/16 06/08/16 06/08/16 06/09/16 06/09/16 06/09/16 07:00 15:00 23:00 07:00 15:00 23:00 Intake Total 800 ml 1456 ml 1200 ml Output Total 950 ml 600 ml 350 ml Balance -150 ml 856 ml 850 ml Intake Oral 480 ml IV Total 800 ml 976 ml 1200 ml Output Urine Total 950 ml 600 ml 350 ml # Bowel Movements 2 1 Result Diagram: 06/08/16 0732 06/06/16 0830 Imaging No Imaging studies. Procedures No procedures yet. Other Results Laboratory Tests Test 06/04/16 06/06/16 06/06/16 06/07/16 15:20 05:35 08:30 14:46 Blood Type O POSITIVE Antibody Screen NEGATIVE Crossmatch Leukocyte-Reduced Red Blood Cells Blood Bank Comment Neutrophils (%) (Auto) 55.1 % Lymphocytes (%) (Auto) 30.1 % Monocytes (%) (Auto) 11.1 % Eosinophils (%) (Auto) 2.8 % Basophils (%) (Auto) 0.9 % Neutrophils # (Auto) 3.7 TH/MM3 Lymphocytes # (Auto) 2.0 TH/MM3 Monocytes # (Auto) 0.7 TH/MM3 Eosinophils # (Auto) 0.2 TH/MM3 Basophils # (Auto) 0.1 TH/MM3 CBC Comment AUTO DIFF Differential Comment AUTO DIFF CONFIRMED Platelet Estimate NORMAL Platelet Morphology Comment ENLARGED Basophilic Stippling FAINT Ovalocytes 1+ Keratocytes OCC Sodium Level 140 MEQ/L Potassium Level 4.0 MEQ/L Chloride Level 108 MEQ/L Carbon Dioxide Level 24.8 MEQ/L Anion Gap 7 MEQ/L Blood Urea Nitrogen 9 MG/DL Creatinine 0.95 MG/DL Estimat Glomerular Filtration 80 ML/MIN Rate Random Glucose 134 MG/DL Calcium Level 8.0 MG/DL Hematology Comments Test 06/08/16 07:32 White Blood Count 4.4 TH/MM3 Red Blood Count 4.03 MIL/MM3 Hemoglobin 7.7 GM/DL Hematocrit 25.9 % Mean Corpuscular Volume 64.4 FL Mean Corpuscular Hemoglobin 19.2 PG Mean Corpuscular Hemoglobin 29.8 % Concent Red Cell Distribution Width 28.5 % Platelet Count 229 TH/MM3 Mean Platelet Volume 8.4 FL Objective Remarks GENERAL: No acute distress, disheveled man. SKIN: Warm and dry. HEAD: Atraumatic. Normocephalic. EYES: Pupils equal and round. No scleral icterus. No injection or drainage. ENT: No nasal bleeding or discharge. Mucous membranes pink and moist. NECK: Trachea midline. No JVD. CARDIOVASCULAR: Regular rate and rhythm. RESPIRATORY: No accessory muscle use. Clear to auscultation. Breath sounds equal bilaterally. GASTROINTESTINAL: Abdomen soft, non-tender, nondistended. Hepatic and splenic margins not palpable. MUSCULOSKELETAL: Extremities without clubbing, cyanosis, or edema. No obvious deformities. NEUROLOGICAL: Awake and alert. No obvious cranial nerve deficits. Motor grossly within normal limits. Five out of 5 muscle strength in the arms and legs. Normal speech. PSYCHIATRIC: Appropriate mood and affect; insight and judgment normal. Medications and IVs Current Medications Medications (Trade) Dose Ordered Sig/Yolie Route Start Time Stop Time Status Last Admin (Ventolin Hfa Inh) 2 puff Q6H PRN INH 06/04/16 17:15 (Norvasc) 10 mg DAILY PO 06/05/16 09:00 06/08/16 09:11 (Lipitor) 40 mg HS PO 06/04/16 21:00 06/08/16 20:39 (Vitamin B12) 1,000 mcg DAILY PO 06/05/16 09:00 06/08/16 16:49 (Ferrous Sulfate) 325 mg DAILY PO 06/05/16 09:00 06/08/16 16:49 (PROzac) 20 mg DAILY PO 06/05/16 09:00 06/08/16 16:49 (Neurontin) 300 mg HS PO 06/04/16 21:00 06/08/16 20:39 (Prinivil) 10 mg DAILY PO 06/05/16 09:00 06/08/16 09:11 (Antivert) 12.5 mg BID PRN PO 06/04/16 17:15 (Ditropan) 5 mg BID PO 06/04/16 21:00 06/08/16 20:39 (Ultram) 100 mg Q8HR PRN PO 06/04/16 17:15 (Desyrel) 100 mg HS PO 06/04/16 21:00 06/08/16 20:39 (Glucophage) 500 mg BID PO 06/04/16 21:00 Hold 06/04/16 21:55 Pantoprazole Sodium 40 mg 40 mg Q12H IV PUSH 06/04/16 20:00 06/08/16 20:37 (NS 1000 ml Inj) 1,000 ml @ 100 mls/hr Q10H IV 06/04/16 17:08 06/09/16 05:14 (NS Flush) 2 ml UNSCH PRN IV FLUSH 06/04/16 17:15 (NS Flush) 2 ml BID IV FLUSH 06/04/16 21:00 06/08/16 09:11 (Zofran Inj) 4 mg Q6H PRN IVP 06/04/16 17:15 (Narcan Inj) 0.4 mg UNSCH PRN IV 06/04/16 17:15 (D50w (Vial) Inj) 25 ml UNSCH PRN IV PUSH 06/04/16 17:15 (Glucagon Inj) 1 mg UNSCH PRN OTHER 06/04/16 17:15 A/P Assessment and Plan 1. Severe anemia GI specialist consulted and on Anemia Workup, will have EGD and Colonoscopy today status post 2 units of PRBCs. -EGD/Colonoscopy (02/18/07) that revealed hyperplastic polyp in sigmoid colon , reactive gastropathy, but the -Iron studies showed Iron 17, TIBC 575, Iron Saturation 3.0, Ferritin 8 suggesting iron deficiency anemia. awaiting final recommendations by GI specialist after tests performed today. Hemoglobin today 8 2. Hypertension controlled. 3. Hyperlipidemia 4. DM II Insulin sliding scale. 5. Hypokalemia replaced and following. DVT prophylaxis -Chemoprophylaxis contraindicated. -SCD/teds Discharge Planning Expected in one to two days. See Schwartz MD Jun 09, 2016 08:29
[2016-06-09] MEDS: OXYBUTYNIN CHLORIDE 5 MG TAB PO SCH ×2 (09:00→20:09)
[2016-06-09] MEDS: PANTOPRAZOLE SODIUM 40 MG VIAL IV PUSH SCH ×2 (09:03→20:09)
[2016-06-09] MEDS: FLUoxetine HCL 20 MG CAP PO SCH (09:04)
[2016-06-09] MEDS: SODIUM CHLORIDE 0.9% FLUSH 10 ML FLUSH IV FLUSH SCH ×2 (09:04→20:15)
[2016-06-09] MEDS: LISINOPRIL 10 MG TAB PO SCH (09:04)
[2016-06-09 12:19] LABS: HEMATOCRIT 27.5 % (39.0-51.0); MEAN CELL VOLUME 63.8 FL (80.0-100.0); MEAN CORPUSCULAR HEMOGLOBIN 18.6 PG (27.0-34.0); PLATELET COUNT 212 TH/MM3 (150-450); RED BLOOD COUNT 4.31 MIL/MM3 (4.50-5.90); RED CELL DISTRIBUTION WIDTH 28.7 % (11.6-17.2); WHITE BLOOD COUNT 4.9 TH/MM3 (4.0-11.0)
[2016-06-09 12:26] LABS: REVIEW FLAG FINAL
[2016-06-09 12:37] LABS: BICARBONATE 24.7 MEQ/L (21.0-32.0); POTASSIUM 3.2 MEQ/L (3.5-5.1)
[2016-06-09] MEDS ORDERED: PROPOFOL 200 MG/20 ML AMP IV ONE (14:46)
--- NOTE | 2016-06-09 15:32 | PD.PROCEDR ---
GI Procedure REFERRING PHYSICIAN Dr. Howell PERFORMED EGD with ablation and colonoscopy with ablation INDICATION FOR PROCEDURE Iron deficiency anemia PROCEDURE: The procedure, risks and benefits were discussed with Mr. Bell and informed consent was obtained. Anesthesia sedated him with Diprivan. He was placed in the left lateral decubitus position. EGD: The Pentax videoscope was introduced through the oropharynx and advanced to the second portion of the duodenum under direct visualization. Retroflexion was performed in the stomach. FINDINGS: Esophagus this was normal The stomach there was an AVM in the gastric antrum as was ablated with the BiCAP otherwise gastric mucosa was unremarkable The duodenum this was normal Colonoscopy: The Pentax videoscope was introduced through the rectum and advanced to cecum where the ileocecal valve and appendiceal orifice were identified. Retroflexion was performed in the rectum. Colonic prep was good FINDINGS: Colonic withdrawal time greater than 6 minutes as the scope was slowly withdrawn colonic mucosa was carefully inspected the patient was noted to have AVMs in the cecum and the transverse colon these were ablated there was a small sigmoid polyp this too was ablated colonic examination was otherwise unremarkable so as retroflexion and rectal examination ESTIMATED BLOOD LOSS: None SPECIMENS REMOVED: None COMPLICATIONS: None IMPRESSION: Gastric AVM Colonic AVM Colon polyp PLAN: Supportive care Monitor labs and transfuse as needed Advance diet Roverto Edmondson MD Jun 09, 2016 15:32
[2016-06-09] MEDS: CYANOCOBALAMIN 1,000 MCG TAB PO SCH (16:55)
[2016-06-09] MEDS: FERROUS SULFATE 325 MG (65 MG ELEMENTAL IRON) TAB PO SCH (16:55)
[2016-06-09] MEDS: POTASSIUM CHLOR 20 MEQ PREMIX 100 ML IV SCH (16:56)
[2016-06-09] MEDS: GABAPENTIN 300 MG CAP PO SCH (20:09)
[2016-06-09] MEDS: ATORVASTATIN 40 MG TAB PO SCH (20:09)
[2016-06-09] MEDS: traZODone HCL 100 MG TAB PO SCH (20:09)
[2016-06-09 21:13] LABS: MEAN CORPUSCULAR HGB CONC 29.3 % (32.0-36.0)
[2016-06-10] VITALS (7 sets, daily range): BP systolic 122–138; BP diastolic 59–76; PULSE 62–77; RESP 16–18; TEMP 96.9–98.6; O2SAT 95–97
[2016-06-10] MEDS: POTASSIUM CHLOR 20 MEQ PREMIX 100 ML IV SCH (02:49)
[2016-06-10] MEDS: INSULIN ASPART SUPPLEMENTAL SCALE SQ SCH ×4 (05:23→23:07)
[2016-06-10] MEDS: SODIUM CHLOR 0.9% 1000 ML INJ 1,000 ML IV SCH ×2 (05:24→20:58)
[2016-06-10 08:04] LABS: HEMATOCRIT 26.5 % (39.0-51.0); MEAN CELL VOLUME 62.6 FL (80.0-100.0); MEAN CORPUSCULAR HEMOGLOBIN 18.4 PG (27.0-34.0); PLATELET COUNT 212 TH/MM3 (150-450); RED BLOOD COUNT 4.24 MIL/MM3 (4.50-5.90); RED CELL DISTRIBUTION WIDTH 28.7 % (11.6-17.2); WHITE BLOOD COUNT 6.1 TH/MM3 (4.0-11.0)
[2016-06-10 08:12] LABS: REVIEW FLAG FINAL
[2016-06-10] MEDS: LISINOPRIL 10 MG TAB PO SCH (08:27)
[2016-06-10] MEDS: FLUoxetine HCL 20 MG CAP PO SCH (08:27)
[2016-06-10] MEDS: CYANOCOBALAMIN 1,000 MCG TAB PO SCH (08:27)
[2016-06-10] MEDS: FERROUS SULFATE 325 MG (65 MG ELEMENTAL IRON) TAB PO SCH (08:28)
[2016-06-10] MEDS: PANTOPRAZOLE SODIUM 40 MG VIAL IV PUSH SCH ×2 (08:28→20:49)
[2016-06-10] MEDS: OXYBUTYNIN CHLORIDE 5 MG TAB PO SCH ×2 (08:28→20:49)
[2016-06-10] MEDS: SODIUM CHLORIDE 0.9% FLUSH 10 ML FLUSH IV FLUSH SCH ×2 (08:31→20:57)
[2016-06-10 08:32] LABS: MAGNESIUM 2.3 MG/DL (1.5-2.5); POTASSIUM 3.4 MEQ/L (3.5-5.1)
--- NOTE | 2016-06-10 14:17 | HHI.PR ---
Subjective Remarks This is a pleasant 65-year-old male with Hypertension, Hyperlipidemia, DM II, Peripheral Neuropathy, Urinary urgency, sent to ER by PCP due to abnormal hemoglobin in 5.7, Followed by GI specialist with diagnosis of Severe Iron deficiency Anemia, he is on Plavix and ASA, Alcohol abuse, status post two units of PRBC, Seen in his bedroom and discussed with nurse awaiting for EGD and Colonoscopy later today. No nausea, vomit or diarrhea , no signs of hemorrhage. 06/10: Seen in his bedroom, discussed with nurse Miss Sandra, no complaint, no nausea, vomit or diarrhea, probable discharge in am tomorrow awaiting final recommendations from GI specialist. Objective Vital Signs Date Time Temp Pulse Resp B/P Pulse Ox O2 Delivery O2 Flow Rate FiO2 06/10/16 08:00 97.7 67 16 127/59 96 06/10/16 04:00 98.6 73 18 138/73 97 06/10/16 00:00 97.2 71 18 137/76 97 06/09/16 20:05 69 06/09/16 20:00 97.8 75 17 149/69 98 06/09/16 16:45 96.4 76 16 170/70 94 06/09/16 15:30 98 17 133/70 98 Room Air 06/09/16 15:15 98.5 73 15 114/55 100 Room Air I/O 06/09/16 06/09/16 06/09/16 06/10/16 06/10/16 06/10/16 07:00 15:00 23:00 07:00 15:00 23:00 Intake Total 1200 ml 808 ml 1560 ml 480 ml Output Total 350 ml 550 ml 1200 ml 750 ml Balance 850 ml 258 ml 360 ml -270 ml Intake Oral 0 ml 1260 ml 480 ml IV Total 1200 ml 808 ml 100 ml Other 200 ml Output Urine Total 350 ml 550 ml 1200 ml 750 ml # Voids 2 0 # Bowel Movements 0 Result Diagram: 06/10/16 0556 06/10/16 0556 Imaging No imaging studies. Procedures EGD and Colonoscopy Other Results Laboratory Tests Test 06/04/16 06/06/16 06/07/16 06/09/16 15:20 05:35 14:46 08:50 Blood Type O POSITIVE Antibody Screen NEGATIVE Crossmatch Leukocyte-Reduced Red Blood Cells Blood Bank Comment Neutrophils (%) (Auto) 55.1 % Lymphocytes (%) (Auto) 30.1 % Monocytes (%) (Auto) 11.1 % Eosinophils (%) (Auto) 2.8 % Basophils (%) (Auto) 0.9 % Neutrophils # (Auto) 3.7 TH/MM3 Lymphocytes # (Auto) 2.0 TH/MM3 Monocytes # (Auto) 0.7 TH/MM3 Eosinophils # (Auto) 0.2 TH/MM3 Basophils # (Auto) 0.1 TH/MM3 CBC Comment AUTO DIFF Differential Comment AUTO DIFF CONFIRMED Platelet Estimate NORMAL Platelet Morphology Comment ENLARGED Basophilic Stippling FAINT Ovalocytes 1+ Keratocytes OCC Hematology Comments Sodium Level 142 MEQ/L Chloride Level 109 MEQ/L Carbon Dioxide Level 24.7 MEQ/L Anion Gap 8 MEQ/L Blood Urea Nitrogen 8 MG/DL Creatinine 0.87 MG/DL Estimat Glomerular Filtration 88 ML/MIN Rate Random Glucose 107 MG/DL Calcium Level 7.7 MG/DL Test 06/10/16 05:56 White Blood Count 6.1 TH/MM3 Red Blood Count 4.24 MIL/MM3 Hemoglobin 7.8 GM/DL Hematocrit 26.5 % Mean Corpuscular Volume 62.6 FL Mean Corpuscular Hemoglobin 18.4 PG Mean Corpuscular Hemoglobin 29.3 % Concent Red Cell Distribution Width 28.7 % Platelet Count 212 TH/MM3 Mean Platelet Volume 8.4 FL Potassium Level 3.4 MEQ/L Magnesium Level 2.3 MG/DL Objective Remarks GENERAL: No acute distress, disheveled man. SKIN: Warm and dry. HEAD: Atraumatic. Normocephalic. EYES: Pupils equal and round. No scleral icterus. No injection or drainage. ENT: No nasal bleeding or discharge. Mucous membranes pink and moist. NECK: Trachea midline. No JVD. CARDIOVASCULAR: Regular rate and rhythm. RESPIRATORY: No accessory muscle use. Clear to auscultation. Breath sounds equal bilaterally. GASTROINTESTINAL: Abdomen soft, non-tender, nondistended. Hepatic and splenic margins not palpable. MUSCULOSKELETAL: Extremities without clubbing, cyanosis, or edema. No obvious deformities. NEUROLOGICAL: Awake and alert. No obvious cranial nerve deficits. Motor grossly within normal limits. Five out of 5 muscle strength in the arms and legs. Normal speech. PSYCHIATRIC: Appropriate mood and affect; insight and judgment normal. Medications and IVs Current Medications Medications (Trade) Dose Ordered Sig/Yolie Route Start Time Stop Time Status Last Admin (Ventolin Hfa Inh) 2 puff Q6H PRN INH 06/04/16 17:15 (Norvasc) 10 mg DAILY PO 06/05/16 09:00 06/10/16 08:28 (Lipitor) 40 mg HS PO 06/04/16 21:00 06/09/16 20:09 (Vitamin B12) 1,000 mcg DAILY PO 06/05/16 09:00 06/10/16 08:27 (Ferrous Sulfate) 325 mg DAILY PO 06/05/16 09:00 06/10/16 08:28 (PROzac) 20 mg DAILY PO 06/05/16 09:00 06/10/16 08:27 (Neurontin) 300 mg HS PO 06/04/16 21:00 06/09/16 20:09 (Prinivil) 10 mg DAILY PO 06/05/16 09:00 06/10/16 08:27 (Antivert) 12.5 mg BID PRN PO 06/04/16 17:15 (Ditropan) 5 mg BID PO 06/04/16 21:00 06/10/16 08:28 (Ultram) 100 mg Q8HR PRN PO 06/04/16 17:15 (Desyrel) 100 mg HS PO 06/04/16 21:00 06/09/16 20:09 (Glucophage) 500 mg BID PO 06/04/16 21:00 Hold 06/04/16 21:55 Pantoprazole Sodium 40 mg 40 mg Q12H IV PUSH 06/04/16 20:00 06/10/16 08:28 (NS 1000 ml Inj) 1,000 ml @ 100 mls/hr Q10H IV 06/04/16 17:08 06/10/16 05:24 (NS Flush) 2 ml UNSCH PRN IV FLUSH 06/04/16 17:15 (NS Flush) 2 ml BID IV FLUSH 06/04/16 21:00 06/10/16 08:31 (Zofran Inj) 4 mg Q6H PRN IVP 06/04/16 17:15 (Narcan Inj) 0.4 mg UNSCH PRN IV 06/04/16 17:15 (D50w (Vial) Inj) 25 ml UNSCH PRN IV PUSH 06/04/16 17:15 (Glucagon Inj) 1 mg UNSCH PRN OTHER 06/04/16 17:15 A/P Assessment and Plan 1. Severe anemia GI specialist consulted and on Anemia Workup, will have EGD and Colonoscopy today status post 2 units of PRBCs. -EGD/Colonoscopy (02/18/07) that revealed hyperplastic polyp in sigmoid colon , reactive gastropathy, but the -Iron studies showed Iron 17, TIBC 575, Iron Saturation 3.0, Ferritin 8 suggesting iron deficiency anemia. awaiting final recommendations by GI specialist after tests performed today. Hemoglobin today 7.8 started on Venofer for 3 days. 2. Hypertension controlled. 3. Hyperlipidemia 4. DM II Insulin sliding scale. 5. Hypokalemia replaced and following. DVT prophylaxis -Chemoprophylaxis contraindicated. -SCD/teds Discharge Planning Expected by tomorrow. See Schwartz MD June 10, 2016 14:17
--- NOTE | 2016-06-10 14:55 | HHI.GIFU ---
Subjective Remarks Resting in bed. Feeling much better. Tolerating diet. No active bleeding. ( Katlin Cody) Objective Vitals I&O Vital Signs Date Time Temp Pulse Resp B/P Pulse Ox O2 Delivery O2 Flow Rate FiO2 06/10/16 12:00 97.5 62 18 122/61 96 06/10/16 08:00 97.7 67 16 127/59 96 06/10/16 08:00 75 06/10/16 04:00 98.6 73 18 138/73 97 06/10/16 00:00 97.2 71 18 137/76 97 06/09/16 20:05 69 06/09/16 20:00 97.8 75 17 149/69 98 06/09/16 16:45 96.4 76 16 170/70 94 06/09/16 15:30 98 17 133/70 98 Room Air 06/09/16 15:15 98.5 73 15 114/55 100 Room Air I/O 06/09/16 06/09/16 06/09/16 06/10/16 06/10/16 06/10/16 07:00 15:00 23:00 07:00 15:00 23:00 Intake Total 1200 ml 808 ml 1560 ml 480 ml Output Total 350 ml 550 ml 1200 ml 750 ml Balance 850 ml 258 ml 360 ml -270 ml Intake Oral 0 ml 1260 ml 480 ml IV Total 1200 ml 808 ml 100 ml Other 200 ml Output Urine Total 350 ml 550 ml 1200 ml 750 ml # Voids 2 0 # Bowel Movements 0 Laboratory Laboratory Tests Test 06/10/16 05:56 White Blood Count 6.1 Red Blood Count 4.24 Hemoglobin 7.8 Hematocrit 26.5 Mean Corpuscular Volume 62.6 Mean Corpuscular Hemoglobin 18.4 Mean Corpuscular Hemoglobin 29.3 Concent Red Cell Distribution Width 28.7 Platelet Count 212 Mean Platelet Volume 8.4 Potassium Level 3.4 Magnesium Level 2.3 Physical Exam HEENT: Normocephalic throat is clear CHEST: CTA CARDIAC: RRR ABDOMEN: Soft, nondistended, nontender; no hepatosplenomegaly; bowel sounds are present in all four quadrants. EXTREMITIES: No clubbing, cyanosis, or edema. SKIN: Normal; no rash; no jaundice. 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 Pt very poor historian and denies any obvious GI bleeding. He also denies blood thinners or NSAID use, but according to EMR, he is on Plavix and ASA. He states he quit drinking etoh 10 years ago, but was a heavy drinker prior to that. He denies any hx of PUD. Iron 17, TIBC 575, Iron Saturation 3.0, Ferritin 8. S/P EGD/ Colonoscopy (06/09/16)-----> Gastric AVM, Colonic AVM, Colon polyp. S/P Ablation. Pathology pending. S/P 2 units PRBC. HH 7.8/26.5. No active bleeding. Tolerating diet. - Hypertension, Hyperlipidemia, Type 2 diabetes, Peripheral neuropathy, Depression, Questionable coronary artery disease. Per primary PLAN: - KEYUR - Await pathology - PPI - Monitor HH - Transfuse as necessary - Supportive care - FUrther recommendations to follow based on results of above - Pt seen and examined by Dr. Mercado and myself and this note is written on his behalf (Katlin Cody) Physician Comments Seen and examined with APOLINAR, No active bleeding reported. SBFT ordered. Monitor labs (Kunal Mercado MD) Katlin Cody June 10, 2016 14:55 Kunal Mercado MD June 10, 2016 20:22
[2016-06-10] MEDS: IRON SUCROSE INJ 100 MG in SODIUM CHLORIDE 0.9% INJ 100 ML IV SCH (18:28)
[2016-06-10] MEDS: GABAPENTIN 300 MG CAP PO SCH (20:49)
[2016-06-10] MEDS: traZODone HCL 100 MG TAB PO SCH (20:49)
[2016-06-10] MEDS: ATORVASTATIN 40 MG TAB PO SCH (20:50)
[2016-06-11] VITALS: BP 142/63; PULSE 64; RESP 17; TEMP 96.7; O2SAT 94
[2016-06-11 04:00] VITALS: BP 144/75; PULSE 75; RESP 16; TEMP 96.7; O2SAT 95
[2016-06-11] MEDS: SODIUM CHLOR 0.9% 1000 ML INJ 1,000 ML IV SCH ×2 (05:11→20:24)
[2016-06-11] MEDS: INSULIN ASPART SUPPLEMENTAL SCALE SQ SCH ×4 (06:25→22:04)
[2016-06-11 06:54] LABS: AUTOMATED NEUTROPHIL # 3.1 TH/MM3 (1.8-7.7); BASOPHIL % 0.7 % (0.0-2.0); EOSINOPHIL # 0.1 TH/MM3 (0-0.4); EOSINOPHIL % 2.3 % (0.0-4.0); HEMATOCRIT 27.2 % (39.0-51.0); LYMPH % 30.1 % (9.0-44.0); LYMPHOCYTE # 1.6 TH/MM3 (1.0-4.8); MEAN CELL VOLUME 62.7 FL (80.0-100.0); MEAN CORPUSCULAR HEMOGLOBIN 18.9 PG (27.0-34.0); MEAN CORPUSCULAR HGB CONC 30.2 % (32.0-36.0); MONO % 10.1 % (0.0-8.0); NEUT % 56.8 % (16.0-70.0); PLATELET COUNT 219 TH/MM3 (150-450); RED BLOOD COUNT 4.35 MIL/MM3 (4.50-5.90); RED CELL DISTRIBUTION WIDTH 27.9 % (11.6-17.2); WHITE BLOOD COUNT 5.4 TH/MM3 (4.0-11.0)
[2016-06-11 07:17] LABS: HEMO FLAGS AUTO DIFF
--- NOTE | 2016-06-11 07:42 | HHI.PR ---
Subjective Remarks This is a pleasant 65-year-old male with Hypertension, Hyperlipidemia, DM II, Peripheral Neuropathy, Urinary urgency, sent to ER by PCP due to abnormal hemoglobin in 5.7, Followed by GI specialist with diagnosis of Severe Iron deficiency Anemia, he is on Plavix and ASA, Alcohol abuse, status post two units of PRBC, Seen in his bedroom and discussed with nurse awaiting for EGD and Colonoscopy later today. 06/10: Seen in his bedroom, discussed with nurse Miss no complaint status post Endoscopy 06/11: Seen in his bedroom, already discussed with GI specialist APOLINAR okay to discharge home but is having Small bowel Series and will have second part later today, will be unable to discharge today. he has Severe Iron deficiency Anemia, no any GI bleeding had Endoscopy AVM Colonic AVM, Colon polyp status post Ablation, status post Biopsy taken, follow in office by GI specialist. Doctor Kunal Mercado. Objective Vital Signs Date Time Temp Pulse Resp B/P Pulse Ox O2 Delivery O2 Flow Rate FiO2 06/11/16 04:00 96.7 75 16 144/75 95 06/11/16 00:00 96.7 64 17 142/63 94 06/10/16 20:04 72 06/10/16 20:00 98.6 77 17 135/62 95 06/10/16 16:00 96.9 70 18 128/60 97 06/10/16 12:00 97.5 62 18 122/61 96 06/10/16 08:00 97.7 67 16 127/59 96 06/10/16 08:00 75 I/O 06/10/16 06/10/16 06/10/16 06/11/16 06/11/16 06/11/16 07:00 15:00 23:00 07:00 15:00 23:00 Intake Total 480 ml 480 ml 400 ml Output Total 750 ml 650 ml 300 ml 700 ml Balance -270 ml -170 ml -300 ml -300 ml Intake Oral 480 ml 480 ml IV Total 400 ml Output Urine Total 750 ml 650 ml 300 ml 700 ml Result Diagram: 06/11/16 0602 06/10/16 0556 Imaging No imaging studies performed. Procedures EGD and Colonoscopy Other Results Laboratory Tests Test 06/07/16 06/09/16 06/10/16 06/11/16 14:46 08:50 05:56 06:02 Hematology Comments Sodium Level 142 MEQ/L Chloride Level 109 MEQ/L Carbon Dioxide Level 24.7 MEQ/L Anion Gap 8 MEQ/L Blood Urea Nitrogen 8 MG/DL Creatinine 0.87 MG/DL Estimat Glomerular Filtration 88 ML/MIN Rate Random Glucose 107 MG/DL Calcium Level 7.7 MG/DL Potassium Level 3.4 MEQ/L Magnesium Level 2.3 MG/DL White Blood Count 5.4 TH/MM3 Red Blood Count 4.35 MIL/MM3 Hemoglobin 8.2 GM/DL Hematocrit 27.2 % Mean Corpuscular Volume 62.7 FL Mean Corpuscular Hemoglobin 18.9 PG Mean Corpuscular Hemoglobin 30.2 % Concent Red Cell Distribution Width 27.9 % Platelet Count 219 TH/MM3 Mean Platelet Volume 8.5 FL Neutrophils (%) (Auto) 56.8 % Lymphocytes (%) (Auto) 30.1 % Monocytes (%) (Auto) 10.1 % Eosinophils (%) (Auto) 2.3 % Basophils (%) (Auto) 0.7 % Neutrophils # (Auto) 3.1 TH/MM3 Lymphocytes # (Auto) 1.6 TH/MM3 Monocytes # (Auto) 0.5 TH/MM3 Eosinophils # (Auto) 0.1 TH/MM3 Basophils # (Auto) 0.0 TH/MM3 CBC Comment AUTO DIFF Objective Remarks GENERAL: No acute distress, disheveled man. SKIN: Warm and dry. HEAD: Atraumatic. Normocephalic. EYES: Pupils equal and round. No scleral icterus. No injection or drainage. ENT: No nasal bleeding or discharge. Mucous membranes pink and moist. NECK: Trachea midline. No JVD. CARDIOVASCULAR: Regular rate and rhythm. RESPIRATORY: No accessory muscle use. Clear to auscultation. Breath sounds equal bilaterally. GASTROINTESTINAL: Abdomen soft, non-tender, nondistended. Hepatic and splenic margins not palpable. MUSCULOSKELETAL: Extremities without clubbing, cyanosis, or edema. No obvious deformities. NEUROLOGICAL: Awake and alert. No Motor deficits. PSYCHIATRIC: Appropriate mood and affect. Medications and IVs Current Medications Medications (Trade) Dose Ordered Sig/Yolie Route Start Time Stop Time Status Last Admin (Ventolin Hfa Inh) 2 puff Q6H PRN INH 06/04/16 17:15 (Norvasc) 10 mg DAILY PO 06/05/16 09:00 06/10/16 08:28 (Lipitor) 40 mg HS PO 06/04/16 21:00 06/10/16 20:50 (Vitamin B12) 1,000 mcg DAILY PO 06/05/16 09:00 06/10/16 08:27 (Ferrous Sulfate) 325 mg DAILY PO 06/05/16 09:00 06/10/16 08:28 (PROzac) 20 mg DAILY PO 06/05/16 09:00 06/10/16 08:27 (Neurontin) 300 mg HS PO 06/04/16 21:00 06/10/16 20:49 (Prinivil) 10 mg DAILY PO 06/05/16 09:00 06/10/16 08:27 (Antivert) 12.5 mg BID PRN PO 06/04/16 17:15 (Ditropan) 5 mg BID PO 06/04/16 21:00 06/10/16 20:49 (Ultram) 100 mg Q8HR PRN PO 06/04/16 17:15 (Desyrel) 100 mg HS PO 06/04/16 21:00 06/10/16 20:49 (Glucophage) 500 mg BID PO 06/04/16 21:00 Hold 06/04/16 21:55 Pantoprazole Sodium 40 mg 40 mg Q12H IV PUSH 06/04/16 20:00 06/10/16 20:49 (NS 1000 ml Inj) 1,000 ml @ 100 mls/hr Q10H IV 06/04/16 17:08 06/11/16 05:11 (NS Flush) 2 ml UNSCH PRN IV FLUSH 06/04/16 17:15 (NS Flush) 2 ml BID IV FLUSH 06/04/16 21:00 06/10/16 20:57 (Zofran Inj) 4 mg Q6H PRN IVP 06/04/16 17:15 (Narcan Inj) 0.4 mg UNSCH PRN IV 06/04/16 17:15 (D50w (Vial) Inj) 25 ml UNSCH PRN IV PUSH 06/04/16 17:15 Glucagon 1 mg 1 mg UNSCH PRN OTHER 06/04/16 17:15 (Venofer Inj/NS Inj) 105 ml @ 105 mls/hr DAILY IV 06/10/16 16:00 06/12/16 09:59 5/1/17 18:28 (Citroma Liq) 300 ml Q6H PO 06/11/16 12:00 06/11/16 18:01 (Dulcolax Ec) 10 mg Q3H PO 06/11/16 18:00 06/11/16 21:01 A/P Assessment and Plan 1. Severe anemia GI specialist consulted and on Anemia Workup, status post EGD and Colonoscopy, with Diagnosis of Gastric AVM, Colonic AVM, Colon polyp status post resection, status post 2 units of PRBCs transfusion. -EGD/Colonoscopy (02/18/07) that revealed hyperplastic polyp in sigmoid colon , reactive gastropathy, but the -Iron studies showed Iron 17, TIBC 575, Iron Saturation 3.0, Ferritin 8 suggesting iron deficiency anemia. Improving hemoglobin on Venofer. 2. Hypertension controlled. 3. Hyperlipidemia by history. 4. DM II Insulin sliding scale. 5. Hypokalemia replaced. DVT prophylaxis -Chemoprophylaxis contraindicated. -SCD/teds Discharge Planning Will try to discharge in am tomorrow See Schwartz MD June 11, 2016 07:42 See Schwartz MD June 11, 2016 07:42
[2016-06-11 08:00] VITALS: BP 141/67; PULSE 69; RESP 18; TEMP 96.8; O2SAT 97
[2016-06-11 08:08] LABS: ACANTHOCYTES OCC (NORMAL); OVALOCYTES 1+ (NORMAL); SCAN/DIFF AUTO DIFF CONFIRMED
[2016-06-11 12:00] VITALS: BP 150/70; PULSE 59; RESP 18; TEMP 97.1; O2SAT 96
[2016-06-11] MEDS ORDERED: MAGNESIUM CITRATE SOLN 300 ML BTL PO SCH (12:00)
[2016-06-11] MEDS: CYANOCOBALAMIN 1,000 MCG TAB PO SCH (12:24)
[2016-06-11] MEDS: OXYBUTYNIN CHLORIDE 5 MG TAB PO SCH ×2 (12:24→20:21)
[2016-06-11] MEDS: FLUoxetine HCL 20 MG CAP PO SCH (12:24)
[2016-06-11] MEDS: SODIUM CHLORIDE 0.9% FLUSH 10 ML FLUSH IV FLUSH SCH ×2 (12:25→20:21)
[2016-06-11] MEDS: FERROUS SULFATE 325 MG (65 MG ELEMENTAL IRON) TAB PO SCH (12:25)
[2016-06-11] MEDS: PANTOPRAZOLE SODIUM 40 MG VIAL IV PUSH SCH ×2 (12:25→20:21)
[2016-06-11] MEDS: LISINOPRIL 10 MG TAB PO SCH (12:25)
[2016-06-11] MEDS: IRON SUCROSE INJ 100 MG in SODIUM CHLORIDE 0.9% INJ 100 ML IV SCH (13:02)
--- NOTE | 2016-06-11 14:08 | HHI.GIFU ---
Subjective Remarks Pt laying in bed, in no apparent distress. Denies n/v, abd pain, diarrhea. Last had BM yesterday. (Mona Multani) Objective Vitals I&O Vital Signs Date Time Temp Pulse Resp B/P Pulse Ox O2 Delivery O2 Flow Rate FiO2 06/11/16 08:00 96.8 69 18 141/67 97 06/11/16 04:00 96.7 75 16 144/75 95 06/11/16 00:00 96.7 64 17 142/63 94 06/10/16 20:04 72 06/10/16 20:00 98.6 77 17 135/62 95 06/10/16 16:00 96.9 70 18 128/60 97 I/O 06/10/16 06/10/16 06/10/16 06/11/16 06/11/16 06/11/16 07:00 15:00 23:00 07:00 15:00 23:00 Intake Total 480 ml 480 ml 400 ml Output Total 750 ml 650 ml 300 ml 700 ml Balance -270 ml -170 ml -300 ml -300 ml Intake Oral 480 ml 480 ml IV Total 400 ml Output Urine Total 750 ml 650 ml 300 ml 700 ml Laboratory Laboratory Tests Test 06/11/16 06:02 White Blood Count 5.4 Red Blood Count 4.35 Hemoglobin 8.2 Hematocrit 27.2 Mean Corpuscular Volume 62.7 Mean Corpuscular Hemoglobin 18.9 Mean Corpuscular Hemoglobin 30.2 Concent Red Cell Distribution Width 27.9 Platelet Count 219 Mean Platelet Volume 8.5 Neutrophils (%) (Auto) 56.8 Lymphocytes (%) (Auto) 30.1 Monocytes (%) (Auto) 10.1 Eosinophils (%) (Auto) 2.3 Basophils (%) (Auto) 0.7 Neutrophils # (Auto) 3.1 Lymphocytes # (Auto) 1.6 Monocytes # (Auto) 0.5 Eosinophils # (Auto) 0.1 Basophils # (Auto) 0.0 CBC Comment AUTO DIFF Differential Comment AUTO DIFF CONFIRMED Ovalocytes 1+ Acanthocytes OCC Physical Exam HEENT: Normocephalic throat is clear CHEST: CTA CARDIAC: RRR ABDOMEN: Soft, nondistended, nontender; no hepatosplenomegaly; bowel sounds are present in all four quadrants. EXTREMITIES: No clubbing, cyanosis, or edema. SKIN: Normal; no rash; no jaundice. COSTUMER ASSISTANT: Alert/oriented (Mona Multani) Assessment and Plan Plan ASSESSMENT: - Severe iron deficiency anemia. SBFT pending. Pt very poor historian and denies any obvious GI bleeding. He also denies blood thinners or NSAID use, but according to EMR, he is on Plavix and ASA. He states he quit drinking etoh 10 years ago, but was a heavy drinker prior to that. He denies any hx of PUD. Iron 17, TIBC 575, Iron Saturation 3.0, Ferritin 8. S/P EGD/ Colonoscopy (06/09/16)-----> Gastric AVM, Colonic AVM, Colon polyp. S/P Ablation. Pathology pending. S/P 2 units PRBC. HH 8.2, 27.2. No active bleeding. Tolerating diet. - Hypertension, Hyperlipidemia, Type 2 diabetes, Peripheral neuropathy, Depression, Questionable coronary artery disease. Per primary PLAN: - [facility] - Await pathology - PPI - Monitor HH - Transfuse as necessary - Supportive care - await SBFT report - f/u in office - If SBFT normal GI will sign off - Pt seen and examined by Dr. Mercado and myself and this note is written on his behalf (Mona Multani) Physician Comments Seen and examined with APOLINAR, no acute blood loss. SBFT-p. outpt. pill cam ( Kunal Mercado MD) Mona Multani June 11, 2016 14:08 Kunal Mercado MD June 11, 2016 14:47
[2016-06-11 16:00] VITALS: BP 133/73; PULSE 82; RESP 18; TEMP 96.6; O2SAT 97
--- NOTE | 2016-06-11 16:29 | RADRPT ---
EXAM DATE/TIME: 06/11/2016 09:24 [facility] COMPARISON: No previous studies available for comparison. INDICATIONS : Anemia, abdominal discomfort FLUORO TIME: 0.8 minutes IMAGE COUNT: 14 CONTRAST: Entero Vu 24% Barium Sulfate (24% w/v, 20% w/w) IMAGING TIME(S): 15 min, 30 min, 45 min, 1 hr, 1.5 hrs2 hrs, 3hrs,5hrs MEDICAL HISTORY : anemia, blindness SURGICAL HISTORY : None. ENCOUNTER: Initial ACUITY: 1 day PAIN SCORE: 2/10 LOCATION: Bilateral small bowel FINDINGS: Preliminary film shows gas filled loops of nondilated large and small bowel. A calcification measurin g approximately 1 cm projects over the right upper lobe. Aside it relates to a calcified gallstone or renal stone. The stomach is grossly unremarkable. Examination of the small bowel demonstrates normal mucosal pattern involving the jejunum and ileum. There is no evidence of mass or obstruction. No intraluminal filling defects are identified. Small bowel transit time is somewhat delayed taking 5 hours to reach the colon. Fluoroscopy of the abdome n and terminal ileum demonstrates no abnormality. CONCLUSION: 1. No delay in transit time through the small bowel taking 5 hours to reach the colon. Otherwise, no filling defects or obstructing lesions. 2. Small calcification right upper quadrant either related to a gallstone or renal calculus. Randall Butler Jr., MD on June 11, 2016 at 16:24 Board Certified Radiologist. This report was verified electronically.
[2016-06-11] MEDS ORDERED: BISACODYL EC 5 MG TABEC PO SCH (18:00)
[2016-06-11 20:00] VITALS: BP 137/63; PULSE 63; PULSE 75; RESP 17; TEMP 97.8; O2SAT 94
[2016-06-11] MEDS: traZODone HCL 100 MG TAB PO SCH (20:21)
[2016-06-11] MEDS: GABAPENTIN 300 MG CAP PO SCH (20:21)
[2016-06-11] MEDS: ATORVASTATIN 40 MG TAB PO SCH (20:21)
[2016-06-12] VITALS: BP 142/64; PULSE 69; RESP 17; TEMP 97.9; O2SAT 95
[2016-06-12 04:00] VITALS: BP 131/63; PULSE 63; RESP 17; TEMP 97.2; O2SAT 97
[2016-06-12] MEDS: SODIUM CHLOR 0.9% 1000 ML INJ 1,000 ML IV SCH (05:52)
[2016-06-12] MEDS: INSULIN ASPART SUPPLEMENTAL SCALE SQ SCH ×3 (06:29→16:00)
[2016-06-12 07:50] VITALS: BP 121/68; PULSE 63; RESP 20; TEMP 98.3; O2SAT 95
[2016-06-12 08:10] VITALS: PULSE 59
[2016-06-12] MEDS: FERROUS SULFATE 325 MG (65 MG ELEMENTAL IRON) TAB PO SCH (08:33)
[2016-06-12] MEDS: FLUoxetine HCL 20 MG CAP PO SCH (08:33)
[2016-06-12] MEDS: LISINOPRIL 10 MG TAB PO SCH (08:33)
[2016-06-12] MEDS: OXYBUTYNIN CHLORIDE 5 MG TAB PO SCH (08:33)
[2016-06-12] MEDS: CYANOCOBALAMIN 1,000 MCG TAB PO SCH (08:33)
[2016-06-12] MEDS: PANTOPRAZOLE SODIUM 40 MG VIAL IV PUSH SCH (08:34)
[2016-06-12] MEDS: SODIUM CHLORIDE 0.9% FLUSH 10 ML FLUSH IV FLUSH SCH (08:34)
[2016-06-12] MEDS: IRON SUCROSE INJ 100 MG in SODIUM CHLORIDE 0.9% INJ 100 ML IV SCH (08:34)
[2016-06-12 11:50] VITALS: BP 142/65; PULSE 70; RESP 20; TEMP 97.4; O2SAT 98
--- NOTE | 2016-06-12 13:12 | HHI.PR ---
Subjective Remarks This is a pleasant 65-year-old male with Hypertension, Hyperlipidemia, DM II, Peripheral Neuropathy, Urinary urgency, sent to ER by PCP due to abnormal hemoglobin in 5.7, Followed by GI specialist with diagnosis of Severe Iron deficiency Anemia, he is on Plavix and ASA, Alcohol abuse, status post two units of PRBC, Seen in his bedroom and discussed with nurse awaiting for EGD and Colonoscopy later today. 06/10: Seen in his bedroom, discussed with nurse Miss no complaint status post Endoscopy 06/11: Seen in his bedroom, already discussed with GI specialist APOLINAR okay to discharge home but is having Small bowel Series and will have second part later today, will be unable to discharge today. he has Severe Iron deficiency Anemia, no any GI bleeding had Endoscopy AVM Colonic AVM, Colon polyp status post Ablation, status post Biopsy taken, follow in office by GI specialist. Doctor Kunal Mercado. 06/12: discussed with Charge Nurse, the patient is been assisted we need previous to discharge if he will be able to go home on HHC versus rehab facility, no nausea, vomit or diarrhea, okay to discharge after PT evaluation. No nausea, vomit or diarrhea Objective Vital Signs Date Time Temp Pulse Resp B/P Pulse Ox O2 Delivery O2 Flow Rate FiO2 06/12/16 08:10 59 06/12/16 07:50 98.3 63 20 121/68 95 06/12/16 04:00 97.2 63 17 131/63 97 06/12/16 00:00 97.9 69 17 142/64 95 06/11/16 20:00 75 06/11/16 20:00 97.8 63 17 137/63 94 06/11/16 16:00 96.6 82 18 133/73 97 I/O 06/11/16 06/11/16 06/11/16 06/12/16 06/12/16 06/12/16 07:00 15:00 23:00 07:00 15:00 23:00 Intake Total 400 ml 125 ml 390 ml 800 ml Output Total 700 ml 800 ml Balance -300 ml -675 ml 390 ml 800 ml Intake Oral 240 ml IV Total 400 ml 125 ml 150 ml 800 ml Output Urine Total 700 ml 800 ml # Voids 2 2 3 Result Diagram: 06/11/16 0602 06/10/16 0556 Imaging Last Impressions Small Bowel X-Ray 06/11/16 0000 Signed Impressions: Service Date/Time: Saturday, June 11, 2016 09:24 - CONCLUSION: 1. No delay in transit time through the small bowel taking 5 hours to reach the colon. Otherwise, no filling defects or obstructing lesions. 2. Small calcification right upper quadrant either related to a gallstone or renal calculus. Randall Butler Jr., MD Procedures EGD and Colonoscopy Other Results Laboratory Tests Test 06/09/16 06/10/16 06/11/16 08:50 05:56 06:02 Sodium Level 142 MEQ/L Chloride Level 109 MEQ/L Carbon Dioxide Level 24.7 MEQ/L Anion Gap 8 MEQ/L Blood Urea Nitrogen 8 MG/DL Creatinine 0.87 MG/DL Estimat Glomerular Filtration 88 ML/MIN Rate Random Glucose 107 MG/DL Calcium Level 7.7 MG/DL Potassium Level 3.4 MEQ/L Magnesium Level 2.3 MG/DL White Blood Count 5.4 TH/MM3 Red Blood Count 4.35 MIL/MM3 Hemoglobin 8.2 GM/DL Hematocrit 27.2 % Mean Corpuscular Volume 62.7 FL Mean Corpuscular Hemoglobin 18.9 PG Mean Corpuscular Hemoglobin 30.2 % Concent Red Cell Distribution Width 27.9 % Platelet Count 219 TH/MM3 Mean Platelet Volume 8.5 FL Neutrophils (%) (Auto) 56.8 % Lymphocytes (%) (Auto) 30.1 % Monocytes (%) (Auto) 10.1 % Eosinophils (%) (Auto) 2.3 % Basophils (%) (Auto) 0.7 % Neutrophils # (Auto) 3.1 TH/MM3 Lymphocytes # (Auto) 1.6 TH/MM3 Monocytes # (Auto) 0.5 TH/MM3 Eosinophils # (Auto) 0.1 TH/MM3 Basophils # (Auto) 0.0 TH/MM3 CBC Comment AUTO DIFF Differential Comment AUTO DIFF CONFIRMED Ovalocytes 1+ Acanthocytes OCC Objective Remarks GENERAL: No acute distress, disheveled man. SKIN: Warm and dry. HEAD: Atraumatic. Normocephalic. EYES: Pupils equal and round. No scleral icterus. No injection or drainage. ENT: No nasal bleeding or discharge. Mucous membranes pink and moist. NECK: Trachea midline. No JVD. CARDIOVASCULAR: Regular rate and rhythm. RESPIRATORY: No accessory muscle use. Clear to auscultation. Breath sounds equal bilaterally. GASTROINTESTINAL: Abdomen soft, non-tender, nondistended. Hepatic and splenic margins not palpable. MUSCULOSKELETAL: Extremities without clubbing, cyanosis, or edema. No obvious deformities. NEUROLOGICAL: Awake and alert. No Motor deficits. PSYCHIATRIC: Appropriate mood and affect. Medications and IVs Current Medications Medications (Trade) Dose Ordered Sig/Yolie Route Start Time Stop Time Status Last Admin (Ventolin Hfa Inh) 2 puff Q6H PRN INH 06/04/16 17:15 (Norvasc) 10 mg DAILY PO 06/05/16 09:00 06/12/16 08:33 (Lipitor) 40 mg HS PO 06/04/16 21:00 06/11/16 20:21 (Vitamin B12) 1,000 mcg DAILY PO 06/05/16 09:00 06/12/16 08:33 (Ferrous Sulfate) 325 mg DAILY PO 06/05/16 09:00 06/12/16 08:33 (PROzac) 20 mg DAILY PO 06/05/16 09:00 06/12/16 08:33 (Neurontin) 300 mg HS PO 06/04/16 21:00 06/11/16 20:21 (Prinivil) 10 mg DAILY PO 06/05/16 09:00 06/12/16 08:33 (Antivert) 12.5 mg BID PRN PO 06/04/16 17:15 (Ditropan) 5 mg BID PO 06/04/16 21:00 06/12/16 08:33 (Ultram) 100 mg Q8HR PRN PO 06/04/16 17:15 (Desyrel) 100 mg HS PO 06/04/16 21:00 06/11/16 20:21 (Glucophage) 500 mg BID PO 06/04/16 21:00 Hold 06/04/16 21:55 Pantoprazole Sodium 40 mg 40 mg Q12H IV PUSH 06/04/16 20:00 06/12/16 08:34 (NS 1000 ml Inj) 1,000 ml @ 100 mls/hr Q10H IV 06/04/16 17:08 06/12/16 05:52 (NS Flush) 2 ml UNSCH PRN IV FLUSH 06/04/16 17:15 (NS Flush) 2 ml BID IV FLUSH 06/04/16 21:00 06/12/16 08:34 (Zofran Inj) 4 mg Q6H PRN IVP 06/04/16 17:15 (Narcan Inj) 0.4 mg UNSCH PRN IV 06/04/16 17:15 (D50w (Vial) Inj) 25 ml UNSCH PRN IV PUSH 06/04/16 17:15 (Glucagon Inj) 1 mg UNSCH PRN OTHER 06/04/16 17:15 A/P Assessment and Plan 1. Severe anemia GI specialist consulted and on Anemia Workup, status post EGD and Colonoscopy, with Diagnosis of Gastric AVM, Colonic AVM, Colon polyp status post resection, status post 2 units of PRBCs transfusion. -EGD/Colonoscopy (02/18/07) that revealed hyperplastic polyp in sigmoid colon , reactive gastropathy, but the -Iron studies showed Iron 17, TIBC 575, Iron Saturation 3.0, Ferritin 8 suggesting iron deficiency anemia. Improving hemoglobin on Venofer. had Small bowel series No delay in transit time through the small bowel taking 5 hours to reach the Colon. otherwise no filling defects or obstructive lesions. Small calcification right upper quadrant either related to gallstone or renal calculi. 2. Hypertension controlled. 3. Hyperlipidemia by history. 4. DM II Insulin sliding scale. 5. Hypokalemia replaced. DVT prophylaxis -Chemoprophylaxis contraindicated. -SCD/teds Discussed with patient and Charge Nurse Miss Self and awaiting for Physical Therapy evaluation for discharge Signed [id number] in case is needed. Discharge Planning Expected later today. See Schwartz MD June 12, 2016 13:12
--- NOTE | 2016-06-12 14:00 | HHI.GIFU ---
Subjective Remarks Pt eating lunch in bed. Says he feels good, no n/v, abd pain. Last BM was 2 d ago. (Mona Multani) Objective Vitals I&O Vital Signs Date Time Temp Pulse Resp B/P Pulse Ox O2 Delivery O2 Flow Rate FiO2 06/12/16 08:10 59 06/12/16 07:50 98.3 63 20 121/68 95 06/12/16 04:00 97.2 63 17 131/63 97 06/12/16 00:00 97.9 69 17 142/64 95 06/11/16 20:00 75 06/11/16 20:00 97.8 63 17 137/63 94 06/11/16 16:00 96.6 82 18 133/73 97 I/O 06/11/16 06/11/16 06/11/16 06/12/16 06/12/16 06/12/16 07:00 15:00 23:00 07:00 15:00 23:00 Intake Total 400 ml 125 ml 390 ml 800 ml Output Total 700 ml 800 ml Balance -300 ml -675 ml 390 ml 800 ml Intake Oral 240 ml IV Total 400 ml 125 ml 150 ml 800 ml Output Urine Total 700 ml 800 ml # Voids 2 2 3 Imaging Last Impressions Small Bowel X-Ray 06/11/16 0000 Signed Impressions: Service Date/Time: Saturday, June 11, 2016 09:24 - CONCLUSION: 1. No delay in transit time through the small bowel taking 5 hours to reach the colon. Otherwise, no filling defects or obstructing lesions. 2. Small calcification right upper quadrant either related to a gallstone or renal calculus. Randall Butler Jr., MD Physical Exam HEENT: EOMI, Normocephalic CHEST: respirations even, unlabored CARDIAC: regular rate, pulse +2 ABDOMEN: Soft, nondistended, nontender; no hepatosplenomegaly; bowel sounds + EXTREMITIES: No clubbing, cyanosis, or edema. SKIN: Normal; no rash; no jaundice. SHOE CLEANER: Alert/oriented (Mona Multani) Assessment and Plan Plan ASSESSMENT: - Severe iron deficiency anemia. SBFT06-11-16 --->No delay in transit time through the small bowel taking 5 hours to reach the colon. Otherwise, no filling defects or obstructing lesions. 2. Small calcification right upper quadrant either related to a gallstone or renal calculus. . Pt very poor historian and denies any obvious GI bleeding. He also denies blood thinners or NSAID use, but according to EMR, he is on Plavix and ASA. He states he quit drinking etoh 10 years ago, but was a heavy drinker prior to that. He denies any hx of PUD. Iron 17, TIBC 575, Iron Saturation 3.0, Ferritin 8. S/P EGD/ Colonoscopy (06/09/16)-----> Gastric AVM, Colonic AVM, Colon polyp. S/P Ablation. Pathology pending. S/P 2 units PRBC. HH 8.2, 27.2. No active bleeding. Tolerating diet. - Hypertension, Hyperlipidemia, Type 2 diabetes, Peripheral neuropathy, Depression, Questionable coronary artery disease. Per primary PLAN: - [facility] - Await pathology - PPI - Monitor HH - Transfuse as necessary - Supportive care - f/u in office - GI will sign off, please reconsult as needed - Pt seen and examined by Dr. Mercado and myself and this note is written on his behalf (Mona Multani) Physician Comments Seen and examined with APOLINAR, SBFT -ve. Needs outpt. Pill cam. Will sign off. Thank you (Kunal Mercado MD) Mona Multani June 12, 2016 14:00 Kunal Mercado MD June 12, 2016 15:50
[2016-06-12] MEDS ORDERED: PROT40TA PO (14:17)
[2016-06-12] MEDS ORDERED: NOVOLOGMXP SQ (14:17)
[2016-06-12] MEDS ORDERED: CARA1TAB6 PO (14:17)
[2016-06-12 15:50] VITALS: BP 138/66; PULSE 84; RESP 20; TEMP 99.6; O2SAT 97
--- NOTE | 2016-07-19 08:01 | HHI.DS ---
Discharge Summary Admission Date Jun 04, 2016 at 16:50 Discharge Date: June 12, 2016 Admitting Diagnosis anemia, gi bleed (1) Anemia ICD Code: D64.9 Diagnosis: Principal (2) GI bleed ICD Code: K92.2 Diagnosis: Principal Procedures EGD AND COLONOSCOPY Brief History - From Admission This is a 65-year-old male past mental history of hypertension, hyperlipidemia, type 2 diabetes with peripheral neuropathy, urinary urgency, questionable coronary artery disease who presented with an abnormal lab in the clinic. Patient stated that he went to follow up with his PCP today and had lab done in which a value was abnormal so he was sent to the emergency department. In the ER labs were obtained and hemoglobin was at 5.7. Patient denied any lightheadedness, dizziness, shortness of breathing, chest pain, or palpitation. He also denied any GI bleed. Denies any nausea or vomiting. Patient stated that he feels well. Patient stated that he had an colonoscopy within the past year and he was told that it was normal. He denies any alcohol use. Patient is a little slow in response but he is able to answer all my questions. PE at Discharge GENERAL: No acute distress, disheveled man. SKIN: Warm and dry. HEAD: Atraumatic. Normocephalic. EYES: Pupils equal and round. No scleral icterus. No injection or drainage. ENT: No nasal bleeding or discharge. Mucous membranes pink and moist. NECK: Trachea midline. No JVD. CARDIOVASCULAR: Regular rate and rhythm. RESPIRATORY: No accessory muscle use. Clear to auscultation. Breath sounds equal bilaterally. GASTROINTESTINAL: Abdomen soft, non-tender, nondistended. Hepatic and splenic margins not palpable. MUSCULOSKELETAL: Extremities without clubbing, cyanosis, or edema. No obvious deformities. NEUROLOGICAL: Awake and alert. No Motor deficits. PSYCHIATRIC: Appropriate mood and affect. Hospital Course This is a pleasant 65-year-old male with Hypertension, Hyperlipidemia, DM II, Peripheral Neuropathy, Urinary urgency, sent to ER by PCP due to abnormal hemoglobin in 5.7, Followed by GI specialist with diagnosis of Severe Iron deficiency Anemia, he is on Plavix and ASA, Alcohol abuse, status post two units of PRBC, Seen in his bedroom and discussed with nurse awaiting for EGD and Colonoscopy later today. 06/10: Seen in his bedroom, discussed with nurse no complaint status post Endoscopy 06/11: Seen in his bedroom, already discussed with GI specialist APOLINAR okay to discharge home but is having Small bowel Series and will have second part later today, will be unable to discharge today. he has Severe Iron deficiency Anemia, no any GI bleeding had Endoscopy AVM Colonic AVM, Colon polyp status post Ablation, status post Biopsy taken, follow in office by GI specialist. Doctor Kunal Mercado. 06/12: discussed with Charge Nurse, the patient is been assisted we need previous to discharge if he will be able to go home on HHC versus rehab facility, no nausea, vomit or diarrhea, okay to discharge after PT evaluation. No nausea, vomit or diarrhea Assessment and Plan 1. Severe anemia GI specialist consulted and on Anemia Workup, status post EGD and Colonoscopy, with Diagnosis of Gastric AVM, Colonic AVM, Colon polyp status post resection, status post 2 units of PRBCs transfusion. -EGD/Colonoscopy (02/18/07) that revealed hyperplastic polyp in sigmoid colon , reactive gastropathy, but the -Iron studies showed Iron 17, TIBC 575, Iron Saturation 3.0, Ferritin 8 suggesting iron deficiency anemia. Improving hemoglobin on Venofer. had Small bowel series No delay in transit time through the small bowel taking 5 hours to reach the Colon. otherwise no filling defects or obstructive lesions. Small calcification right upper quadrant either related to gallstone or renal calculi. 2. Hypertension controlled. 3. Hyperlipidemia by history. 4. DM II Insulin sliding scale. 5. Hypokalemia replaced. DVT prophylaxis -Chemoprophylaxis contraindicated. -SCD/teds Discussed with patient and Charge Nurse Miss Self and awaiting for Physical Therapy evaluation for discharge Signed [id number] in case is needed. Discharge Planning Expected later today. Pt Condition on Discharge: Good Discharge Disposition: Discharge to SNF Discharge Time: > 30 minutes Discharge Instructions DIET: Follow Instructions for: Heart Healthy Diet, Diabetic Diet Activities you can perform: Regular-No Restrictions Other Activity Instructions: Follow Physical Therapy recommendations at discharge See Schwartz MD Jul 19, 2016 08:01
== END 2016-06-12 17:53 | DRG 812 ==
LOC: NEPC 14:34 → NEDA 16:50 → HOCA 20:44
PROVIDERS: ADMIT Internal Medicine; ATTEND Internal Medicine
PROC: 30233N1 Transfusion of Nonautologous Red Blood Cells into Peripheral Vein, Percutaneous Approach (ICD-10-PCS; 2016-06-04)
PROC: 0D5L8ZZ Destruction of Transverse Colon, Via Natural or Artificial Opening Endoscopic (ICD-10-PCS; 2016-06-09)
PROC: 0D5N8ZZ Destruction of Sigmoid Colon, Via Natural or Artificial Opening Endoscopic (ICD-10-PCS; 2016-06-09)
PROC: 0D568ZZ Destruction of Stomach, Via Natural or Artificial Opening Endoscopic (ICD-10-PCS; principal; 2016-06-09 14:33)
PROC: 0D5H8ZZ Destruction of Cecum, Via Natural or Artificial Opening Endoscopic (ICD-10-PCS; 2016-06-09 14:33)
DX: D50.9 Iron deficiency anemia, unspecified (principal); E11.42 Type 2 diabetes mellitus with diabetic polyneuropathy; I69.254 Hemiplegia and hemiparesis following other nontraumatic intracranial hemorrhage affecting left non-dominant side; F17.210 Nicotine dependence, cigarettes, uncomplicated; I10 Essential (primary) hypertension; E78.5 Hyperlipidemia, unspecified; D12.5 Benign neoplasm of sigmoid colon; E87.6 Hypokalemia; Q27.33 Arteriovenous malformation of digestive system vessel; R39.15 Urgency of urination; F32.9 Major depressive disorder, single episode, unspecified; Z79.82 Long term (current) use of aspirin; Z79.4 Long term (current) use of insulin; Z79.02 Long term (current) use of antithrombotics/antiplatelets; Z79.84 Long term (current) use of oral hypoglycemic drugs
CPT/HCPCS: 36430; 74250; 76937; 80048; 80053; 82607; 82728; 82746; 82948; 83010; 83540; 83550; 83615; 83735; 84132; 85025; 85027; 85044; 85610; 85730; 86850; 86900; 86901; 86920; 88305; 88307; 93005; 96365; C9113; J1756; J1815; J3480; J7030; P9016

== ENCOUNTER 2016-12-30 09:42 | Inpatient (IN) | payer MEDICARE, OTHER ==
[~2016-12-30] VITALS: Ht 180.3 cm; Wt 78.0 kg
[~2016-12-30 09:42] MED LIST changes: +AMLO10TA2 PO; +ATOR80TA45 PO; +CARA1TAB6 PO; -CLON.1 PO; -DARV PO; +FERR325T PO; +FLUO20CA4 PO; +GABA300C5 PO; +LISI-515 PO; +MECL12.574 PO; +METF500T4 PO; +NOVOLOGMXP SQ; +OXYB5TAB8 PO; +PROT40TA PO; -SULF1TAB47 PO; +TRAM50TA PO; +TRAZ100T4 PO; +VENTAER INH; +VITA10002 PO
[2016-12-30 09:44] VITALS: BP 159/73; PULSE 92; RESP 16; TEMP 97.9; O2SAT 98
[2016-12-30] MEDS ORDERED: SODIUM CHLOR 0.9% 250 ML INJ 250 ML IV ONE (10:15)
--- NOTE | 2016-12-30 10:16 | PD ---
HPI Chief Complaint: Abnormal Results Time Seen by Provider: 10:08 Travel History International Travel<30 days: No Contact w/Intl Traveler<30days: No Traveled to known affect area: No History of Present Illness HPI SENT FROM [facility] FOR LOW HEMOGLOBIN 7....PCP IS DR KAREN BAEZ. PATIENT HAS A HISTORY OF ANEMIA, BLINDNESS, PAROXYSMAL ATRIAL FIB,.....patient states that he has been feeling weaker over the last week or so, but generally dismisses this to his age and does not pay it much mind. patient denies alleviating/aggravating factors. pt denies any assoc symptoms of wallace/cp/abdpain/ n/v/d PFSH Past Medical History Asthma: No Autoimmune Disease: No Blood Disorders: No Anxiety: No Depression: No Heart Rhythm Problems: No Cancer: No Cardiovascular Problems: Yes (HTN, A-FIB ) High Cholesterol: No Chemotherapy: No Chest Pain: No Congestive Heart Failure: No COPD: No Cerebrovascular Accident: Yes (2006) Diabetes: Yes Diminished Hearing: No Endocrine: No GERD: No Glaucoma: No Genitourinary: No Headaches: No Hepatitis: No Hiatal Hernia: No Hypertension: Yes Immune Disorder: No Kidney Stones: No Musculoskeletal: No Neurologic: Yes Psychiatric: No Reproductive: No Respiratory: No Migraines: No Myocardial Infarction: Yes (01/16) Radiation Therapy: No Renal Failure: No Seizures: No Sickle Cell Disease: No Sleep Apnea: No Thyroid Disease: No Ulcer: No Past Surgical History Abdominal Surgery: Yes (APP) AICD: No Appendectomy: Yes Arteriovenous Shunt: No Cardiac Surgery: No Cholecystectomy: No Ear Surgery: No Endocrine Surgery: No Eye Surgery: No Genitourinary Surgery: No Gynecologic Surgery: No Insulin Pump: No Joint Replacement: No Oral Surgery: No Pacemaker: No Thoracic Surgery: No Social History Alcohol Use: No Tobacco Use: No Substance Use: No Allergies-Medications (Allergen,Severity, Reaction): Coded Allergies: celecoxib (Unverified Allergy, Severe, Hives, 09/24/16) acyclovir (Verified Allergy, Unknown, 12/30/16) Reported Meds & Prescriptions Reported Meds & Active Scripts Active Reported Terazosin (Terazosin HCl) 2 Mg Cap 2 Mg PO HS Tamsulosin (Tamsulosin HCl) 0.4 Mg Cap 0.4 Mg PO DAILY Risperdal (Risperidone) 1 Mg Tab 1 Mg PO TID Remeron (Mirtazapine) 15 Mg Tab 15 Mg PO DAILY Omeprazole 20 Mg Tab 20 Mg PO DAILY Lisinopril 20 Mg Tab 20 Mg PO DAILY Januvia (Sitagliptin Phosphate) 50 Mg Tab 50 Mg PO DAILY Fluoxetine (Fluoxetine HCl) 40 Mg Cap 40 Cap PO DAILY Ferrous Sulfate 325 Mg (65 Mg Iron) Tablet 325 Mg PO TIDPC Eliquis (Apixaban) 5 Mg Tab 5 Mg PO BID Ditropan (Oxybutynin Chloride) 5 Mg Tab 5 Mg PO BID Metformin ER (Metformin HCl) 500 Mg Best 1,000 Mg PO DAILY Gabapentin 300 Mg Cap 300 Mg PO HS Vitamin B-12 (Cyanocobalamin) 1,000 Mcg Tab 1,000 Mcg PO DAILY Atorvastatin (Atorvastatin Calcium) 80 Mg Tab 40 Mg PO HS Amlodipine (Amlodipine Besylate) 10 Mg Tab 10 Mg PO DAILY Ventolin Hfa 18 GM Inh (Albuterol Sulfate) 90 Mcg/Act Aer 2 Puff INH Q6H PRN Review of Systems Except as stated in HPI: all other systems reviewed are Neg General / Constitutional: No: Fever Eyes: No: Visual changes HENT: No: Headaches Cardiovascular: No: Chest Pain or Discomfort Respiratory: No: Shortness of Breath Gastrointestinal: No: Abdominal Pain Genitourinary: No: Dysuria Musculoskeletal: No: Pain Skin: No Rash Neurologic: Positive: Weakness (gen) Psychiatric: No: Depression Endocrine: No: Polydipsia Hematologic/Lymphatic: No: Easy Bruising Physical Exam Narrative GENERAL: SKIN: Warm and dry....PALLOR HEAD: Atraumatic. Normocephalic. EYES: Pupils equal and round. No scleral icterus. No injection or drainage. ENT: No nasal bleeding or discharge. Mucous membranes pink and moist. NECK: Trachea midline. No JVD. CARDIOVASCULAR: Regular rate and rhythm. RESPIRATORY: No accessory muscle use. Clear to auscultation. Breath sounds equal bilaterally. GASTROINTESTINAL: Abdomen soft, non-tender, nondistended. GUAIAC POSITIVE (ZOIE AWAD AT BEDSIDE) MUSCULOSKELETAL: Extremities without clubbing, cyanosis, or edema. No obvious deformities. NEUROLOGICAL: Awake BUT CONFUSED DOES NOT FOLLOW COMMANDS WELL (AID AT BEDSIDE, STATES COMPLETE CARE PATIENT) PSYCHIATRIC: Appropriate mood and affect; insight and judgment normal. Data Data Last Documented VS Vital Signs Date Time Temp Pulse Resp B/P (MAP) Pulse Ox O2 Delivery O2 Flow Rate FiO2 12/30/16 10:10 Room Air 12/30/16 09:44 97.9 92 16 159/73 (101) 98 Orders Orders Type And Screen (12/30/16 10:08) Blood Product Administration (12/30/16 10:08) Sodium Chlor 0.9% 250 Ml Inj (Ns 250 Ml (12/30/16 10:15) Electrocardiogram (12/30/16 10:08) Complete Blood Count With Diff (12/30/16 10:08) Comprehensive Metabolic Panel (12/30/16 10:08) Troponin I (12/30/16 10:08) B-Type Natriuretic Peptide (12/30/16 10:08) Prothrombin Time / Inr (Pt) (12/30/16 10:08) Act Partial Throm Time (Ptt) (12/30/16 10:08) Lipase (12/30/16 10:08) Chest, Single Ap (12/30/16 10:08) Iv Access Insert/Monitor (12/30/16 10:08) Ecg Monitoring (12/30/16 10:08) Oximetry (12/30/16 10:08) Admit Order (Ed Use Only) (12/30/16 12:10) Labs Laboratory Tests Test 12/30/16 10:30 White Blood Count 4.8 TH/MM3 Red Blood Count 4.45 MIL/MM3 Hemoglobin 8.8 GM/DL Hematocrit 29.9 % Mean Corpuscular Volume 67.2 FL Mean Corpuscular Hemoglobin 19.8 PG Mean Corpuscular Hemoglobin Concent 29.4 % Red Cell Distribution Width 20.4 % Platelet Count 287 TH/MM3 Mean Platelet Volume 7.4 FL Neutrophils (%) (Auto) 66.6 % Lymphocytes (%) (Auto) 21.3 % Monocytes (%) (Auto) 9.4 % Eosinophils (%) (Auto) 1.8 % Basophils (%) (Auto) 0.9 % Neutrophils # (Auto) 3.2 TH/MM3 Lymphocytes # (Auto) 1.0 TH/MM3 Monocytes # (Auto) 0.5 TH/MM3 Eosinophils # (Auto) 0.1 TH/MM3 Basophils # (Auto) 0.0 TH/MM3 CBC Comment DIFF FINAL Differential Comment Prothrombin Time 11.0 SEC Prothromb Time International Ratio 1.0 RATIO Activated Partial Thromboplast Time 25.2 SEC Blood Urea Nitrogen 18 MG/DL Creatinine 1.11 MG/DL Random Glucose 236 MG/DL Total Protein 7.0 GM/DL Albumin 2.6 GM/DL Calcium Level 8.4 MG/DL Alkaline Phosphatase 144 U/L Aspartate Amino Transf (AST/SGOT) 21 U/L Alanine Aminotransferase (ALT/SGPT) 16 U/L Total Bilirubin 0.1 MG/DL Sodium Level 141 MEQ/L Potassium Level 3.5 MEQ/L Chloride Level 106 MEQ/L Carbon Dioxide Level 24.7 MEQ/L Anion Gap 10 MEQ/L Estimat Glomerular Filtration Rate 66 ML/MIN Troponin I LESS THAN 0.02 NG/ML B-Type Natriuretic Peptide 17 PG/ML Lipase 157 U/L MDM Medical Decision Making Medical Screen Exam Complete: Yes Emergency Medical Condition: Yes Medical Record Reviewed: Yes Differential Diagnosis ANEMIA V GI BLEED V ELECTROLYTE ABNL Narrative Course patient was confirmed to have anemia and also guaiac positive stools c/w gi bleed (likely venous rather than arterial)...pt will be admitted for observation , gi eval and transfusion Diagnosis Primary Impression: Anemia Qualified Codes: D64.9 - Anemia, unspecified Additional Impression: GI bleed Qualified Codes: K92.2 - Gastrointestinal hemorrhage, unspecified Admitting Information Admitting Physician Requests: Observation Skyler Witt MD Dec 30, 2016 10:16
[2016-12-30 10:56] LABS: AUTOMATED NEUTROPHIL # 3.2 TH/MM3 (1.8-7.7); BASOPHIL % 0.9 % (0.0-2.0); EOSINOPHIL # 0.1 TH/MM3 (0-0.4); EOSINOPHIL % 1.8 % (0.0-4.0); HEMATOCRIT 29.9 % (39.0-51.0); HEMO FLAGS DIFF FINAL; LYMPH % 21.3 % (9.0-44.0); MEAN CELL VOLUME 67.2 FL (80.0-100.0); MEAN CORPUSCULAR HEMOGLOBIN 19.8 PG (27.0-34.0); MONO % 9.4 % (0.0-8.0); NEUT % 66.6 % (16.0-70.0); PLATELET COUNT 287 TH/MM3 (150-450); RED BLOOD COUNT 4.45 MIL/MM3 (4.50-5.90); RED CELL DISTRIBUTION WIDTH 20.4 % (11.6-17.2); WHITE BLOOD COUNT 4.8 TH/MM3 (4.0-11.0)
[2016-12-30 10:59] LABS: MEAN CORPUSCULAR HGB CONC 29.4 % (32.0-36.0)
[2016-12-30 11:07] LABS: APTT (PATIENT) 25.2 SEC (24.3-30.1)
[2016-12-30] MEDS ORDERED: TERA2CAP3 PO (11:12)
[2016-12-30] MEDS ORDERED: OMEP20TA93 PO (11:12)
[2016-12-30] MEDS ORDERED: SITA50 PO (11:12)
[2016-12-30] MEDS ORDERED: FLUO40CA PO (11:12)
[2016-12-30] MEDS ORDERED: RISP1 PO (11:12)
[2016-12-30] MEDS ORDERED: TAMS0.4C4 PO (11:12)
[2016-12-30] MEDS ORDERED: APIX5TAB PO (11:12)
[2016-12-30] MEDS ORDERED: REME15TA PO (11:12)
[2016-12-30] MEDS ORDERED: LISI-515 PO (11:12)
[2016-12-30] MEDS ORDERED: FERR325T18 PO (11:12)
[2016-12-30 11:21] LABS: ALT (GPT) 16 U/L (12-78); ANION GAP 10 MEQ/L (5-15); AST (GOT) 21 U/L (15-37); BICARBONATE 24.7 MEQ/L (21.0-32.0); BLOOD UREA NITROGEN 18 MG/DL (7-18); CHLORIDE 106 MEQ/L (98-107); GLOMERULAR FILTRATION RATE 66 ML/MIN (>89); POTASSIUM 3.5 MEQ/L (3.5-5.1); SODIUM (NA) 141 MEQ/L (136-145)
[2016-12-30 11:25] LABS: ALKALINE PHOSPHATASE 144 U/L (45-117); TOTAL BILIRUBIN ADULT 0.1 MG/DL (0.2-1.0)
--- NOTE | 2016-12-30 11:54 | RADRPT ---
EXAM DATE/TIME: 12/30/2016 10:53 [facility] COMPARISON: CHEST SINGLE AP, June 26, 2009, 21:19. INDICATIONS : Weakness, short of breath MEDICAL HISTORY : anemia SURGICAL HISTORY : None. ENCOUNTER: Initial ACUITY: 1 week PAIN SCORE: Non-responsive. LOCATION: Bilateral chest FINDINGS: Portable AP view of the chest demonstrates a normal-sized cardiac silhouette. No effusion, consolidat ion, or pneumothorax is visualized. The bones and soft tissues demonstrate no acute abnormality. CONCLUSION: No acute cardiopulmonary abnormality is identified. Fernando Das MD on December 30, 2016 at 11:52 Board Certified Radiologist. This report was verified electronically.
[2016-12-30] MEDS ORDERED: BISACODYL 10 MG SUPP RECTAL PRN (12:15)
[2016-12-30] MEDS ORDERED: ACETAMINOPHEN 325 MG TAB PO PRN (12:15)
[2016-12-30] MEDS ORDERED: SODIUM CHLORIDE 0.9% FLUSH 10 ML FLUSH IV FLUSH PRN (12:15)
[2016-12-30] MEDS ORDERED: NALOXONE HCL 0.4 MG/ML AMP IV PUSH PRN (12:15)
[2016-12-30] MEDS ORDERED: ONDANSETRON HCL 4 MG/2 ML VIAL IVP PRN (12:15)
[2016-12-30] MEDS ORDERED: LACTULOSE SYRUP 20 GM/30 ML CUP PO PRN (12:15)
[2016-12-30] MEDS ORDERED: MAGNESIUM HYDROXIDE SUSP 30 ML CUP PO PRN (13:00)
[2016-12-30] MEDS ORDERED: SENNOSIDES 8.6 MG TAB PO PRN (13:00)
[2016-12-30] MEDS ORDERED: ALBUTEROL SULFATE 90 MCG/ACT HFA 8 GM INHALER INH PRN (13:00)
[2016-12-30] MEDS: SODIUM CHLOR 0.45% 1000 ML INJ 1,000 ML IV SCH (13:06)
[2016-12-30 13:37] VITALS: BP 141/65; PULSE 56; RESP 17; TEMP 97.1; O2SAT 96
[2016-12-30] MEDS: risperiDONE 1 MG TAB PO SCH ×2 (13:37→16:54)
[2016-12-30] MEDS: FERROUS SULFATE 325 MG (65 MG ELEMENTAL IRON) TAB PO SCH ×2 (13:38→16:54)
--- NOTE | 2016-12-30 13:53 | PD.CONS ---
HPI History of Present Illness This is a 66 year old male with hx anemia, paroxysmal AF, gastric & colon AVMs who was sent by [facility] for hgb 7. His hgb is 8.8 on admission which is actually close to if not better than his baseline since May. He denies any bleeding or abd pain. He says he takes eliquis. He would answer no further questions. He had EGD and colonoscopy 06/09/16 that found gastric AVMs, colon AVMs s/p ablation, colon polyp. SBFT at that time neg. He was told to f/u with GI for capsule endoscopy and according to [facility] records he has never been to the office. He was found to be FOBT pos in ER. No reports of active bleeding. (Mona Multani) PFSH Past Medical History colon and gastric AVM blindness AF Past Surgical History noncontributory (Mnoa Multani) Coded Allergies: celecoxib (Unverified Allergy, Severe, Hives, 09/24/16) acyclovir (Verified Allergy, Unknown, 12/30/16) Family History noncontributory Social History noncontributory (Mona Multani) Review of Systems ROS noncontributory (Mona Multani) GI Exam Vitals I&O Vital Signs Date Time Temp Pulse Resp B/P (MAP) Pulse Ox O2 Delivery O2 Flow Rate FiO2 12/30/16 13:37 97.1 56 17 141/65 (90) 96 12/30/16 10:10 Room Air 12/30/16 09:44 97.9 92 16 159/73 (101) 98 Imaging Last Impressions Chest X-Ray 12/30/16 1008 Signed Impressions: Service Date/Time: Friday, December 30, 2016 10:53 - CONCLUSION: No acute cardiopulmonary abnormality is identified. Fernando Das MD Laboratory Test 12/30/16 10:30 White Blood Count 4.8 TH/MM3 Red Blood Count 4.45 MIL/MM3 Hemoglobin 8.8 GM/DL Hematocrit 29.9 % Mean Corpuscular Volume 67.2 FL Mean Corpuscular Hemoglobin 19.8 PG Mean Corpuscular Hemoglobin Concent 29.4 % Red Cell Distribution Width 20.4 % Platelet Count 287 TH/MM3 Mean Platelet Volume 7.4 FL Neutrophils (%) (Auto) 66.6 % Lymphocytes (%) (Auto) 21.3 % Monocytes (%) (Auto) 9.4 % Eosinophils (%) (Auto) 1.8 % Basophils (%) (Auto) 0.9 % Neutrophils # (Auto) 3.2 TH/MM3 Lymphocytes # (Auto) 1.0 TH/MM3 Monocytes # (Auto) 0.5 TH/MM3 Eosinophils # (Auto) 0.1 TH/MM3 Basophils # (Auto) 0.0 TH/MM3 CBC Comment DIFF FINAL Differential Comment Prothrombin Time 11.0 SEC Prothromb Time International Ratio 1.0 RATIO Activated Partial Thromboplast Time 25.2 SEC Blood Urea Nitrogen 18 MG/DL Creatinine 1.11 MG/DL Random Glucose 236 MG/DL Total Protein 7.0 GM/DL Albumin 2.6 GM/DL Calcium Level 8.4 MG/DL Alkaline Phosphatase 144 U/L Aspartate Amino Transf (AST/SGOT) 21 U/L Alanine Aminotransferase (ALT/SGPT) 16 U/L Total Bilirubin 0.1 MG/DL Sodium Level 141 MEQ/L Potassium Level 3.5 MEQ/L Chloride Level 106 MEQ/L Carbon Dioxide Level 24.7 MEQ/L Anion Gap 10 MEQ/L Estimat Glomerular Filtration Rate 66 ML/MIN Troponin I LESS THAN 0.02 NG/ML B-Type Natriuretic Peptide 17 PG/ML Lipase 157 U/L Physical Examination HEENT: PERRL; normocephalic; atraumatic; no jaundice. CHEST: CTA CARDIAC: RRR ABDOMEN: Soft, nondistended, nontender; no hepatosplenomegaly; bowel sounds are present in all four quadrants. EXTREMITIES: No clubbing, cyanosis, or edema. SKIN: Normal; no rash; no jaundice. BROACH SETTER: alert. (Mona Multani) Assessment and Plan Plan ASSESSMENT - anemia - hgb 8.8 on admission, this is close to if not better than his baseline since May. pos for occult blood but no sign or report of active bleeding at this time. He has a hx gastric and colon AVM seen on EGD/colonoscopy 06/09/16 which were ablated. 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 Monitor H/H if drops or evidence of active bleeding will proceed with inpt endoscopy, other english recommend outpatient pill cam test. (Kunal Mercado MD) Mona Multani Dec 30, 2016 13:53 Kunal Mercado MD Dec 30, 2016 16:05
--- NOTE | 2016-12-30 14:33 | HHI.HP ---
HPI Service [facility] Hospitalists Primary Care Physician Mickey Perea M.D. Admission Diagnosis GI BLEED, ANEMIA Diagnoses: Chief Complaint: Abnormal lab and GI bleed Travel History International Travel<30 Days: No Contact w/Intl Traveler <30 Da: No Traveled to Known Affected Are: No History of Present Illness This is a 66-year-old male past medical history of CVA, paroxysmal atrial fibrillation, hypertension, blindness, history of gastric AV malformation, and anemia who presented with abnormal hemoglobin 7.7 at the care home. He also had blood in his stools. Patient is selectively nonverbal. His nursing aid us at the bedside during the interview. Patient will not give me a history but does shake his head yes or no at times. Per patient's nursing aid he does understand you and if he saying yes or no he means it. She stated that he will sometimes talk to you but does not talk a lot. She stated that during our interview this is his baseline. Per patient's nurse he's been having intermittent blood in his stool since the weekend. She stated that it is bright red blood. Patient then had a hemoglobin done today in which it was 7.7 at the care home. He was sent to [place] to evaluate for GI bleed and anemia. Per ED physician Dr. Witt he also stated that he noted blood in stools. Since patient is selectively nonverbal and would not give me a history unable to obtain ROS. Past Family Social History Past Medical History Hypertension, hyperlipidemia, type 2 diabetes insulin-dependent, peripheral neuropathy, coronary artery disease, history of KS, history of CVA, blindness, depression, , history of gastric and colon AV malformation, paroxysmal atrial fibrillation, BPH Past Surgical History Appendectomy EGD and colonoscopy done in May 2016 Reported Medications Reported Meds & Active Scripts Active Reported Terazosin (Terazosin HCl) 2 Mg Cap 2 Mg PO HS Tamsulosin (Tamsulosin HCl) 0.4 Mg Cap 0.4 Mg PO DAILY Risperdal (Risperidone) 1 Mg Tab 1 Mg PO TID Remeron (Mirtazapine) 15 Mg Tab 15 Mg PO DAILY Omeprazole 20 Mg Tab 20 Mg PO DAILY Lisinopril 20 Mg Tab 20 Mg PO DAILY Januvia (Sitagliptin Phosphate) 50 Mg Tab 50 Mg PO DAILY Fluoxetine (Fluoxetine HCl) 40 Mg Cap 40 Cap PO DAILY Ferrous Sulfate 325 Mg (65 Mg Iron) Tablet 325 Mg PO TIDPC Eliquis (Apixaban) 5 Mg Tab 5 Mg PO BID Ditropan (Oxybutynin Chloride) 5 Mg Tab 5 Mg PO BID Metformin ER (Metformin HCl) 500 Mg Best 1,000 Mg PO DAILY Gabapentin 300 Mg Cap 300 Mg PO HS Vitamin B-12 (Cyanocobalamin) 1,000 Mcg Tab 1,000 Mcg PO DAILY Atorvastatin (Atorvastatin Calcium) 80 Mg Tab 40 Mg PO HS Amlodipine (Amlodipine Besylate) 10 Mg Tab 10 Mg PO DAILY Ventolin Hfa 18 GM Inh (Albuterol Sulfate) 90 Mcg/Act Aer 2 Puff INH Q6H PRN Allergies: Coded Allergies: celecoxib (Unverified Allergy, Severe, Hives, 09/24/16) acyclovir (Verified Allergy, Unknown, 12/30/16) Active Ordered Medications Current Medications Sodium Chloride 250 ml @ 15 mls/hr ONCE ONCE IV ; Start 12/30/16 at 10:15; Stop 12/31/16 at 02:54 Sodium Chloride 1,000 ml @ 75 mls/hr [id number] IV Last administered on t 13:06; Start 12/30/16 at 12:10 Sodium Chloride (NS Flush) 2 ml UNSCH PRN IV FLUSH FLUSH AFTER USING IV ACCESS ; Start 12/30/16 at 12:15 Sodium Chloride (NS Flush) 2 ml BID IV FLUSH ; Start 12/30/16 at 21:00 Acetaminophen (Tylenol) 650 mg Q4H PRN PO TEMP > 100.4; Start 12/30/16 at 12: 15 Ondansetron HCl (Zofran Inj) 4 mg Q6H PRN IVP NAUSEA OR VOMITING; Start at 12:15 Naloxone HCl (Narcan Inj) 0.4 mg UNSCH PRN IV PUSH SEE LABEL COMMENTS; Start 12/30/16 at 12:15 Senna/Docusate Sodium (Anastacia-Colace) 1 tab BID PO ; Start 12/30/16 at 21:00 Magnesium Hydroxide (Milk Of Magnesia Liq) 30 ml Q12H PRN PO Mild constipation ; Start 12/30/16 at 13:00 Sennosides (Senokot) 17.2 mg Q12H PRN PO Moderate constipation; Start at 13:00 Bisacodyl (Dulcolax Supp) 10 mg DAILY PRN RECTAL SEVERE CONSITIPATION; Start 12/30/16 at 12:15 Lactulose (Lactulose Liq) 30 ml DAILY PRN PO SEVERE CONSITIPATION; Start 12/30 at 12:15 Albuterol Sulfate (Proair Hfa Inh) 2 puff Q6HR PRN INH SHORTNESS OF BREATH; Start 12/30/16 at 13:00 Amlodipine Besylate (Norvasc) 10 mg DAILY PO ; Start 12/31/16 at 09:00 Atorvastatin Calcium (Lipitor) 40 mg HS PO ; Start 12/30/16 at 21:00 Cyanocobalamin (Vitamin B12) 1,000 mcg DAILY PO ; Start 12/31/16 at 09:00 Ferrous Sulfate (Ferrous Sulfate) 325 mg TIDPC PO Last administered on t 13:38; Start 12/30/16 at 13:30 Fluoxetine HCl (PROzac) 40 mg DAILY PO ; Start 12/31/16 at 09:00 Gabapentin (Neurontin) 300 mg HS PO ; Start 12/30/16 at 21:00 Lisinopril (Prinivil) 20 mg DAILY PO ; Start 12/31/16 at 09:00 Mirtazapine (Remeron) 15 mg DAILY PO ; Start 12/31/16 at 09:00 Oxybutynin Chloride (Ditropan) 5 mg BID PO ; Start 12/30/16 at 21:00 Risperidone (risperDAL) 1 mg TID PO Last administered on 12/30/16t 13:37; Start 12/30/16 at 13:00 Tamsulosin HCl (Flomax) 0.4 mg DAILY PO ; Start 12/31/16 at 09:00 Terazosin HCl (Hytrin) 2 mg HS PO ; Start 12/30/16 at 21:00 Pantoprazole Sodium (Protonix) 20 mg DAILY PO ; Start 12/31/16 at 09:00 Family History Reported Medications Reported Meds & Active Scripts Active Father mother had history of coronary artery disease. Father also had a history of unknown type of cancer. Social History [facility] resides [facility]. Otherwise unable to obtain history from patient since he is nonverbal. Physical Exam Vital Signs Vital Signs Date Time Temp Pulse Resp B/P (MAP) Pulse Ox O2 Delivery O2 Flow Rate FiO2 12/30/16 13:37 97.1 56 17 141/65 (90) 96 12/30/16 10:10 Room Air 12/30/16 09:44 97.9 92 16 159/73 (101) 98 Physical Exam GENERAL: This is a well-nourished dishevel male in no apparent distress. SKIN: No rashes, ecchymoses or lesions. Cool and dry. HEAD: Atraumatic. Normocephalic. No temporal or scalp tenderness. EYES: Pupils equal round and reactive. Extraocular motions intact. No scleral icterus. No injection or drainage. ENT: Nose without bleeding, purulent drainage or septal hematoma. Throat without erythema, tonsillar hypertrophy or exudate. Uvula midline. Airway patent. NECK: Trachea midline. No JVD or lymphadenopathy. Supple, nontender, no meningeal signs. CARDIOVASCULAR: Regular rate and rhythm without murmurs, gallops, or rubs. RESPIRATORY: Clear to auscultation. Breath sounds equal bilaterally. No wheezes , rales, or rhonchi. GASTROINTESTINAL: Abdomen soft, + epigastric and lower abdominal pain to palpation, nondistended. No hepato-splenomegaly, or palpable masses. No guarding. MUSCULOSKELETAL: Extremities without clubbing, cyanosis, or edema. No joint tenderness, effusion, or edema noted. No calf tenderness. Negative Homans sign bilaterally. NEUROLOGICAL: Awake and alert. Cranial nerves II through XII intact. Motor and sensory grossly within normal limits. Five out of 5 muscle strength in all muscle groups. Normal speech. Laboratory Laboratory Tests Test 12/30/16 10:30 White Blood Count 4.8 Red Blood Count 4.45 Hemoglobin 8.8 Hematocrit 29.9 Mean Corpuscular Volume 67.2 Mean Corpuscular Hemoglobin 19.8 Mean Corpuscular Hemoglobin Concent 29.4 Red Cell Distribution Width 20.4 Platelet Count 287 Mean Platelet Volume 7.4 Neutrophils (%) (Auto) 66.6 Lymphocytes (%) (Auto) 21.3 Monocytes (%) (Auto) 9.4 Eosinophils (%) (Auto) 1.8 Basophils (%) (Auto) 0.9 Neutrophils # (Auto) 3.2 Lymphocytes # (Auto) 1.0 Monocytes # (Auto) 0.5 Eosinophils # (Auto) 0.1 Basophils # (Auto) 0.0 CBC Comment DIFF FINAL Differential Comment Prothrombin Time 11.0 Prothromb Time International Ratio 1.0 Activated Partial Thromboplast Time 25.2 Blood Urea Nitrogen 18 Creatinine 1.11 Random Glucose 236 Total Protein 7.0 Albumin 2.6 Calcium Level 8.4 Alkaline Phosphatase 144 Aspartate Amino Transf (AST/SGOT) 21 Alanine Aminotransferase (ALT/SGPT) 16 Total Bilirubin 0.1 Sodium Level 141 Potassium Level 3.5 Chloride Level 106 Carbon Dioxide Level 24.7 Anion Gap 10 Estimat Glomerular Filtration Rate 66 Troponin I LESS THAN 0.02 B-Type Natriuretic Peptide 17 Lipase 157 Result Diagram: 12/30/16 1030 12/30/16 1030 Imaging Last Impressions Chest X-Ray 12/30/16 1008 Signed Impressions: Service Date/Time: Friday, December 30, 2016 10:53 - CONCLUSION: No acute cardiopulmonary abnormality is identified. MD Ny Pepe VTE Risk Assessment Caprini VTE Risk Assessment: Mod/High Risk (score >= 2) VTE Pharm Contraindication: Active bleeding Caprini Risk Assessment Model Point Value = 1 Point Value = 2 Point Value = 3 Point Value = 5 Age 41-60 Minor surgery BMI > 25 kg/m2 Swollen legs Varicose veins or History of unexplained or recurrent spontaneous Oral contraceptives or hormone replacement Sepsis (< 1 month) Serious lung disease, including pneumonia (< 1 month) Abnormal pulmonary function Acute myocardial infarction Congestive heart failure (< 1 month) History of inflammatory bowel disease Medical patient at bed rest Age 61-74 Arthroscopic surgery Major open surgery (> 45 min) Laparoscopic surgery (> 45 min) Malignancy Confined to bed (> 72 hours) Immobilizing plaster cast Central venous access Age >= 75 History of VTE Family history of VTE Factor V Leiden Prothrombin [id number] Lupus anticoagulant Anticardiolipin antibodies Elevated serum homocysteine Heparin-induced thrombocytopenia Other congenital or acquired thrombophilia Stroke (< 1 month) Elective arthroplasty Hip, pelvis, or leg fracture Acute spinal cord injury (< 1 month) Prophylaxis Regimen Total Risk Factor Score Risk Level Prophylaxis Regimen 0-1 Low Early ambulation 2 Moderate Order ONE of the following: *Sequential Compression Device (SCD) *Heparin 5000 units SQ BID 3-4 Higher Order ONE of the following medications: *Heparin 5000 units SQ TID *Enoxaparin/Lovenox 40 mg SQ daily (WT < 150 kg, CrCl > 30 mL/min) *Enoxaparin/Lovenox 30 mg SQ daily (WT < 150 kg, CrCl > 10-29 mL/min) *Enoxaparin/Lovenox 30 mg SQ BID (WT < 150 kg, CrCl > 30 mL/min) AND/OR *Sequential Compression Device (SCD) 5 or more Highest Order ONE of the following medications: *Heparin 5000 units SQ TID (Preferred with Epidurals) *Enoxaparin/Lovenox 40 mg SQ daily (WT < 150 kg, CrCl > 30 mL/min) *Enoxaparin/Lovenox 30 mg SQ daily (WT < 150 kg, CrCl > 10-29 mL/min) *Enoxaparin/Lovenox 30 mg SQ BID (WT < 150 kg, CrCl > 30 mL/min) AND *Sequential Compression Device (SCD) Assessment and Plan Assessment and Plan This is a 66-year-old male history of CVA, history of KS, atrial fibrillation on chronic anticoagulation with Eliquis, history of gastric and colon AVM who presented with anemia and GI bleed GI bleed -He has a hx gastric and colon AVM seen on EGD/colonoscopy 06/09/16 and ablation. -Hemoglobin seems to be at the baseline in fact seems to improved today. Positive bleeding noted on stools with mild tenderness palpation in the epigastric and lower abdominal area. -GI consulted recommend continuing monitor H&H, transfuse as needed, monitor for any active bleeding, EGD/colonoscopy if there is active bleeding, follow up with GI as outpatient for capsule endoscopy. -Will continue to monitor and start Protonix. -At the moment since this questionable active GI bleed will hold Eliquis. Anemia, iron deficiency -Stable. Patient is on iron supplement. Paroxysmal atrial fibrillation on chronic anticoagulation with Eliquis -Will need to hold Eliquis for now due to possible active GI bleed. -See treatment as above. Hypertension, history CVA, history of KS, CAD, hypertension, BPH, depression, blindness -Will resume home medication. DVT prophylaxis -SCDs. Chemoprophylaxis contra indicated secondary to possible active GI bleed. Discussed Condition With Patient, Dr. Witt and assisted living nursing director Physician Certification 2 Midnight Certification Type: Admission for Inpatient Services Order for Inpatient Services The services are ordered in accordance with Medicare regulations or non- Medicare payer requirements, as applicable. In the case of services not specified as inpatient-only, they are appropriately provided as inpatient services in accordance with the 2-midnight benchmark. Estimated LOS (days): 2 2 days is the estimated time the patient will need to remain in the hospital, assuming treatment plan goals are met and no additional complications. Post-Hospital Plan: SNF Petrona Mahan MD Dec 30, 2016 14:33
[2016-12-30] MEDS ORDERED: GLUCAGON 1 MG/ML VIAL OTHER PRN (15:00)
[2016-12-30] MEDS ORDERED: DEXTROSE 50% IN WATER 50 ML VIAL(D50) IV PUSH PRN (15:00)
[2016-12-30 16:00] VITALS: BP 152/72; PULSE 59; RESP 17; TEMP 96.8; O2SAT 97
--- NOTE | 2016-12-30 16:06 | EKG ---
Date Performed: 12/30/2016 Time Performed: 10:23:41 PTAGE: 66 years EKG: Sinus rhythm Compared to prior tracing no significant change NORMAL ECG PREVIOUS TRACING : 06/06/2016 03.07 DOCTOR: Peterson Zamora Interpretating Date/Time 12/30/2016 16:06:03
[2016-12-30] MEDS: INSULIN ASPART SUPPLEMENTAL SCALE SQ SCH ×2 (16:57→21:00)
[2016-12-30 20:00] VITALS: BP 145/66; PULSE 72; RESP 18; TEMP 96.6; O2SAT 96
[2016-12-30] MEDS: PANTOPRAZOLE SODIUM 40 MG VIAL IV PUSH SCH (20:55)
[2016-12-30] MEDS: DOCUSATE SODIUM 50 MG/SENNA 8.6 MG TAB PO SCH (20:55)
[2016-12-30] MEDS: GABAPENTIN 300 MG CAP PO SCH (20:56)
[2016-12-30] MEDS: OXYBUTYNIN CHLORIDE 5 MG TAB PO SCH (20:56)
[2016-12-30] MEDS: ATORVASTATIN 40 MG TAB PO SCH (20:56)
[2016-12-30] MEDS: TERAZOSIN HCL 1 MG CAP PO SCH (20:56)
[2016-12-30] MEDS: SODIUM CHLORIDE 0.9% FLUSH 10 ML FLUSH IV FLUSH SCH (20:56)
[2016-12-31] VITALS (10 sets, daily range): BP systolic 123–162; BP diastolic 60–76; PULSE 54–73; RESP 17–20; TEMP 95.5–98.1; O2SAT 91–95
[2016-12-31 03:23] LABS: HEMATOCRIT 24.7 % (39.0-51.0); MEAN CELL VOLUME 66.1 FL (80.0-100.0); MEAN CORPUSCULAR HEMOGLOBIN 19.9 PG (27.0-34.0); PLATELET COUNT 262 TH/MM3 (150-450); RED BLOOD COUNT 3.74 MIL/MM3 (4.50-5.90); RED CELL DISTRIBUTION WIDTH 20.7 % (11.6-17.2); REVIEW FLAG FINAL; WHITE BLOOD COUNT 5.5 TH/MM3 (4.0-11.0)
[2016-12-31 03:31] LABS: BICARBONATE 28.6 MEQ/L (21.0-32.0); POTASSIUM 3.2 MEQ/L (3.5-5.1)
[2016-12-31] MEDS: SODIUM CHLOR 0.45% 1000 ML INJ 1,000 ML IV SCH ×2 (03:47→20:32)
[2016-12-31] MEDS: INSULIN ASPART SUPPLEMENTAL SCALE SQ SCH ×4 (08:00→21:00)
[2016-12-31] MEDS: PANTOPRAZOLE SODIUM 40 MG VIAL IV PUSH SCH ×2 (09:00→20:31)
[2016-12-31] MEDS: SODIUM CHLORIDE 0.9% FLUSH 10 ML FLUSH IV FLUSH SCH ×2 (09:00→20:32)
[2016-12-31] MEDS ORDERED: PANTOPRAZOLE SOD 20 MG DELAYED RELEASE TAB PO SCH (09:00)
[2016-12-31] MEDS ORDERED: POTASSIUM CHLORIDE 10 MEQ CONTROLLED RELEASE TAB PO ONE (10:30)
[2016-12-31] MEDS ORDERED: SODIUM CHLOR 0.9% 250 ML INJ 250 ML IV ONE (10:30)
[2016-12-31] MEDS: risperiDONE 1 MG TAB PO SCH ×3 (11:01→17:00)
[2016-12-31] MEDS: MIRTAZAPINE 15 MG TAB PO SCH (11:01)
[2016-12-31] MEDS: OXYBUTYNIN CHLORIDE 5 MG TAB PO SCH ×2 (11:01→20:31)
[2016-12-31] MEDS: CYANOCOBALAMIN 1,000 MCG TAB PO SCH (11:01)
[2016-12-31] MEDS: LISINOPRIL 20 MG TAB PO SCH (11:01)
[2016-12-31] MEDS: TAMSULOSIN HCL 0.4 MG CAP PO SCH (11:01)
[2016-12-31] MEDS: DOCUSATE SODIUM 50 MG/SENNA 8.6 MG TAB PO SCH ×2 (11:02→20:31)
[2016-12-31] MEDS: FLUoxetine HCL 20 MG CAP PO SCH (11:02)
[2016-12-31] MEDS: FERROUS SULFATE 325 MG (65 MG ELEMENTAL IRON) TAB PO SCH ×3 (11:02→17:00)
--- NOTE | 2016-12-31 12:45 | HHI.GIFU ---
Subjective Remarks Pt resting in bed, drowsy. Pt minimally responding to questions, will shake his head yes and no appropriately. Pt denies N/V, abdominal pain. Per pts nurse he has been having multiple loose BMs with dark, tarry stool. Denies BRB in stool. (Lacey Luna) Objective Vitals I&O Vital Signs Date Time Temp Pulse Resp B/P (MAP) Pulse Ox O2 Delivery O2 Flow Rate FiO2 12/31/16 11:37 92 21 12/31/16 08:00 96.5 62 17 137/65 (89) 94 12/31/16 04:00 95.5 54 17 162/74 (103) 95 12/31/16 00:00 96.5 60 17 124/61 (82) 95 12/30/16 20:00 96.6 72 18 145/66 (92) 96 12/30/16 16:00 96.8 59 17 152/72 (98) 97 12/30/16 13:37 97.1 56 17 141/65 (90) 96 I/O 12/30/16 12/30/16 12/30/16 12/31/16 12/31/16 12/31/16 07:00 15:00 23:00 07:00 15:00 23:00 Intake Total 0 ml Balance 0 ml Intake Oral 0 ml # Voids 1 # Bowel Movements 0 Laboratory Laboratory Tests Test 12/30/16 20:26 12/31/16 02:52 12/31/16 08:00 Hemoglobin 7.7 7.4 7.6 White Blood Count 5.5 Red Blood Count 3.74 Hematocrit 24.7 Mean Corpuscular Volume 66.1 Mean Corpuscular Hemoglobin 19.9 Mean Corpuscular Hemoglobin Concent 30.0 Red Cell Distribution Width 20.7 Platelet Count 262 Mean Platelet Volume 7.5 Blood Urea Nitrogen 17 Creatinine 0.72 Random Glucose 130 Calcium Level 7.9 Sodium Level 143 Potassium Level 3.2 Chloride Level 108 Carbon Dioxide Level 28.6 Anion Gap 6 Estimat Glomerular Filtration Rate 110 Imaging Last Impressions Chest X-Ray 12/30/16 1008 Signed Impressions: Service Date/Time: Friday, December 30, 2016 10:53 - CONCLUSION: No acute cardiopulmonary abnormality is identified. Fernando Das MD Physical Exam HEENT: Normocephalic; atraumatic; no jaundice. CHEST: CTA CARDIAC: Irregularly irregular ABDOMEN: Soft, mildly distended, nontender; no hepatosplenomegaly; bowel sounds are present in all four quadrants. SKIN: Normal; no rash; no jaundice. DAIRY GRAZER: No focal deficits; alert and oriented times three. (Lacey Luna) Assessment and Plan Plan ASSESSMENT - Anemia - hgb 8.8 on admission, He has a hx gastric and colon AVM seen on EGD/ colonoscopy 06/09/16 which were ablated. Pt was on Eliquis at home for a-fib, currently on hold. H&H currently 7.6/24.7. The nurse is preparing to administer one unit of blood. Per pts nurse, Art, pt has been having multiple loose BMs of black, tarry stool throughout the night. Pt is a poor historian. - Isolated ALP elevation - unclear significance - Hypertension, history of CVA, history of PA, CAD, BPH, depression, blindness per attending PLAN - EGD tomorrow - NPO after MN - Obtain consents for EGD - Monitor HH - Transfuse as needed - Monitor for signs of bleeding - Notify GI of active bleeding - F/U with GI as outpatient for capsule endoscopy - Will continue to monitor This pt seen by myself and Dr Mercado and this note is written on his behalf (Lacey Luna) Physician Comments Seen and examined with APOLINAR, further bleeding with drop in H/H. EGD planned for tomorrow. Monitor labs. Anticoagulation on hold. (uKnal Mercado MD) Lacey Luna Dec 31, 2016 12:45 Kunal Mercado MD Dec 31, 2016 15:50
--- NOTE | 2016-12-31 13:19 | HHI.PR ---
Subjective Remarks Patient had multiple episodes of dark tarry stool today. He is eating okay. He denies abdominal pain. Objective Vitals Vital Signs Date Time Temp Pulse Resp B/P (MAP) Pulse Ox O2 Delivery O2 Flow Rate FiO2 12/31/16 12:44 97.7 62 18 158/73 95 12/31/16 11:37 92 21 12/31/16 08:00 96.5 62 17 137/65 (89) 94 12/31/16 04:00 95.5 54 17 162/74 (103) 95 12/31/16 00:00 96.5 60 17 124/61 (82) 95 12/30/16 20:00 96.6 72 18 145/66 (92) 96 12/30/16 16:00 96.8 59 17 152/72 (98) 97 12/30/16 13:37 97.1 56 17 141/65 (90) 96 I/O 12/30/16 12/30/16 12/30/16 12/31/16 12/31/16 12/31/16 07:00 15:00 23:00 07:00 15:00 23:00 Intake Total 0 ml 10 ml Balance 0 ml 10 ml Intake Oral 0 ml Blood Product IV Normal Saline Flush 10 ml # Voids 1 # Bowel Movements 0 Result Diagram: 12/31/16 0800 12/31/16 0252 Imaging Last Impressions Chest X-Ray 12/30/16 1008 Signed Impressions: Service Date/Time: Friday, December 30, 2016 10:53 - CONCLUSION: No acute cardiopulmonary abnormality is identified. Fernando Das MD Objective Remarks GENERAL: Obese male in no apparent distress. CARDIOVASCULAR: Normal rate and regular rhythm without murmurs, gallops, or rubs. RESPIRATORY: Good respiratory efforts. Breath sounds equal and clear to auscultation bilaterally. GASTROINTESTINAL: Abdomen soft, non-tender, non-distended. Normal active bowel sounds MUSCULOSKELETAL: Extremities without cyanosis, or edema. NEURO: Awake and alert. Moves all ext x4. Does not interact much PSYCH: Calm A/P Assessment and Plan 66-year-old male history of CVA, history of MN, atrial fibrillation on chronic anticoagulation with Eliquis, history of gastric and colon AVM who presented with anemia and GI bleed GI bleed -He has a hx gastric and colon AVM seen on EGD/colonoscopy 06/09/16 and ablation. -Hemoglobin trended down and he continues to have melena. Transfuse 1 unit of PRBC today. -GI following with plan for EGD tomorrow -Will continue to monitor and continue Protonix. -At the moment since this questionable active GI bleed will hold Eliquis. Anemia, iron deficiency -Patient is on iron supplement. Paroxysmal atrial fibrillation on chronic anticoagulation with Eliquis -Hold Eliquis for now due to possible active GI bleed. -See treatment as above. Hypertension, history CVA, history of MN, CAD, hypertension, BPH, depression, blindness -Will resume home medication. Hypokalemia: Replace and monitor. DVT prophylaxis -SCDs. Chemoprophylaxis contra indicated secondary to possible active GI bleed. Pepe Guerrero MD Dec 31, 2016 13:19
[2016-12-31] MEDS ORDERED: METOPROLOL TARTRATE 25 MG TAB PO PRN (15:30)
[2016-12-31] MEDS ORDERED: POVIDONE IODINE 5% (ANTISEPSIS KIT) 4 APPLICATIONS EACH NARE PRN (15:30)
[2016-12-31] MEDS ORDERED: SODIUM CHLORID 0.9% 500 ML IV PRN (15:30)
[2016-12-31] MEDS ORDERED: LACTATED RINGER'S 1000 ML IV PRN (15:30)
[2016-12-31] MEDS ORDERED: CHLORHEXIDINE GLUCONATE 2 % 1 PACK (2 CLOTHS) TOPICAL PRN (15:30)
[2016-12-31 18:56] LABS: HEMATOCRIT 29.1 % (39.0-51.0); REVIEW FLAG FINAL
[2016-12-31] MEDS: ATORVASTATIN 40 MG TAB PO SCH (20:31)
[2016-12-31] MEDS: GABAPENTIN 300 MG CAP PO SCH (20:31)
[2016-12-31] MEDS: TERAZOSIN HCL 1 MG CAP PO SCH (20:31)
[2017-01-01] VITALS (8 sets, daily range): BP systolic 138–163; BP diastolic 67–78; PULSE 60–86; RESP 17–18; TEMP 96.2–98.1; O2SAT 93–98
[2017-01-01] MEDS: SODIUM CHLOR 0.45% 1000 ML INJ 1,000 ML IV SCH ×2 (04:10→14:21)
[2017-01-01 06:59] LABS: AUTOMATED NEUTROPHIL # 2.7 TH/MM3 (1.8-7.7); BASOPHIL # 0.1 TH/MM3 (0-0.2); EOSINOPHIL # 0.1 TH/MM3 (0-0.4); EOSINOPHIL % 2.5 % (0.0-4.0); HEMATOCRIT 29.8 % (39.0-51.0); HEMO FLAGS DIFF FINAL; LYMPH % 33.8 % (9.0-44.0); LYMPHOCYTE # 1.8 TH/MM3 (1.0-4.8); MEAN CELL VOLUME 68.1 FL (80.0-100.0); MEAN CORPUSCULAR HEMOGLOBIN 20.7 PG (27.0-34.0); MEAN CORPUSCULAR HGB CONC 30.4 % (32.0-36.0); MONO % 12.1 % (0.0-8.0); NEUT % 50.6 % (16.0-70.0); PLATELET COUNT 266 TH/MM3 (150-450); RED BLOOD COUNT 4.37 MIL/MM3 (4.50-5.90); RED CELL DISTRIBUTION WIDTH 21.3 % (11.6-17.2); WHITE BLOOD COUNT 5.4 TH/MM3 (4.0-11.0)
[2017-01-01] MEDS: PANTOPRAZOLE SODIUM 40 MG VIAL IV PUSH SCH (09:38)
[2017-01-01] MEDS: INSULIN ASPART SUPPLEMENTAL SCALE SQ SCH ×2 (09:38→12:00)
[2017-01-01] MEDS: FLUoxetine HCL 20 MG CAP PO SCH (09:38)
[2017-01-01] MEDS: FERROUS SULFATE 325 MG (65 MG ELEMENTAL IRON) TAB PO SCH ×2 (09:38→14:18)
[2017-01-01] MEDS: DOCUSATE SODIUM 50 MG/SENNA 8.6 MG TAB PO SCH (09:39)
[2017-01-01] MEDS: CYANOCOBALAMIN 1,000 MCG TAB PO SCH (09:39)
[2017-01-01] MEDS: risperiDONE 1 MG TAB PO SCH ×2 (09:39→14:18)
[2017-01-01] MEDS: SODIUM CHLORIDE 0.9% FLUSH 10 ML FLUSH IV FLUSH SCH (09:39)
[2017-01-01] MEDS: TAMSULOSIN HCL 0.4 MG CAP PO SCH (09:39)
[2017-01-01] MEDS: LISINOPRIL 20 MG TAB PO SCH (09:39)
[2017-01-01] MEDS: OXYBUTYNIN CHLORIDE 5 MG TAB PO SCH (09:39)
[2017-01-01] MEDS: MIRTAZAPINE 15 MG TAB PO SCH (09:39)
[2017-01-01] MEDS ORDERED: LIDOCAINE HCL 1% PF 5 ML SYRINGE OTHER ONE (12:00)
[2017-01-01] MEDS ORDERED: PROPOFOL 200 MG/20 ML AMP IV ONE (12:00)
--- NOTE | 2017-01-01 12:02 | GIPROC ---
[facility] [address] [facility]. [facility], [id number] EGD PROCEDURE REPORT EXAM DATE: 01/01/2017 PATIENT NAME: Arnulfo Bell MR #: [id number] BIRTHDATE: 1950 ATTENDING: Kunal Mercado MD ORDER #: [id number] TORQUE TESTER: Callie Zuniga and Imelda Hong STATUS: inpatient INDICATIONS: The patient is a 66 yr old male here for an EGD due to iron deficiency anemia PROCEDURE PERFORMED: EGD w/ biopsy MEDICATIONS: None and Per Anesthesia. TOPICAL ANESTHETIC: CONSENT: The patient understands the risks and benefits of the procedure and understands that these risks include, but are not limited to: sedation, allergic reaction, infection, perforation and/or bleeding. Alternative means of evaluation and treatment include, among others: physical exam, x-rays, and/or surgical intervention. The patient elects to proceed with this endoscopic procedure. medical equipment was checked for proper function. Hand hygiene and appropriate measures for infection prevention was taken. After the risks, benefits and alternatives of the procedure were thoroughly explained, Informed consent was verified, confirmed and timeout was successfully executed by the treatment team. The patient was anesthetized with topical anesthesia and the Pentax [id number] endoscope was introduced through the mouth and advanced to the second portion of the duodenum. Retroflexed views revealed no abnormalities The gastroscope was then slowly withdrawn and removed. ESOPHAGUS: There was LA Class A esophagitis noted. STOMACH: There was erythematous moderate gastritis in the gastric antrum. A biopsy was performed using cold forceps. Sample sent for histology. DUODENUM: The duodenal mucosa appeared normal in the bulb and second portion of the duodenum. ADVERSE EVENTS: There were no complications. IMPRESSIONS: 1. There was LA Class A esophagitis noted 2. There was erythematous gastritis in the gastric antrum; biopsy was performed 3. Normal duodenal mucosa in the bulb and second portion of the duodenum 4. Retroflexed views revealed no abnormalities RECOMMENDATIONS: 1. Await biopsy results. Biopsy results will not be ready for 7-10 days. If you don't hear from us in two weeks, call our office for biopsy results. 2. Anti-reflux regimen 3. Continue PPI 4. Avoid NSAIDS PATIENT CONDITION: stable DISPOSITION: Inpatient REPEAT EXAM: Return 3 years EGD pending biopsy results Kunal Mercado MD eSigned: Kunal Mercado MD 01/01/2017 12:02 PM cc: PATIENT NAME: Arnulfo Bell MR#: [id number]
--- NOTE | 2017-01-01 13:03 | HHI.PR ---
Objective Vitals Vital Signs Date Time Temp Pulse Resp B/P (MAP) Pulse Ox O2 Delivery O2 Flow Rate FiO2 01/01/17 12:25 97.4 64 18 163/78 (106) 97 01/01/17 08:00 97.8 60 17 159/74 (102) 98 01/01/17 05:33 96 Nasal Cannula 3.00 01/01/17 04:00 96.2 76 17 138/67 (90) 95 01/01/17 03:50 94 01/01/17 00:00 98.1 86 17 146/70 (95) 93 12/31/16 20:00 98.1 65 17 126/60 (82) 91 12/31/16 20:00 66 12/31/16 16:00 97.1 73 18 123/61 (81) 93 12/31/16 13:19 97.3 67 20 144/76 92 I/O 12/31/16 12/31/16 12/31/16 01/01/17 01/01/17 01/01/17 07:00 15:00 23:00 07:00 15:00 23:00 Intake Total 10 ml 890 ml 240 ml 855 ml Balance 10 ml 890 ml 240 ml 855 ml Intake Oral 480 ml 240 ml IV Total 755 ml Packed Cells 400 ml Blood Product IV Normal Saline Flush 10 ml 10 ml Other 100 ml # Voids 2 2 # Bowel Movements 3 Result Diagram: 01/01/17 0520 12/31/16 0252 Objective Remarks GENERAL: Obese male in no apparent distress. CARDIOVASCULAR: Normal rate and regular rhythm without murmurs, gallops, or rubs. RESPIRATORY: Good respiratory efforts. Breath sounds equal and clear to auscultation bilaterally. GASTROINTESTINAL: Abdomen soft, non-tender, non-distended. Normal active bowel sounds MUSCULOSKELETAL: Extremities without cyanosis, or edema. NEURO: Awake and alert. Moves all ext x4. Does not interact much PSYCH: Calm A/P Assessment and Plan 66-year-old male history of CVA, history of NM, atrial fibrillation on chronic anticoagulation with Eliquis, history of gastric and colon AVM who presented with anemia and GI bleed GI bleed -He has a hx gastric and colon AVM seen on EGD/colonoscopy 06/09/16 and ablation. -Hemoglobin trended down and he continues to have melena. Transfuse 1 unit of PRBC today. -GI following with plan for EGD tomorrow -Will continue to monitor and continue Protonix. -At the moment since this questionable active GI bleed will hold Eliquis. Anemia, iron deficiency -Patient is on iron supplement. Paroxysmal atrial fibrillation on chronic anticoagulation with Eliquis -Hold Eliquis for now due to possible active GI bleed. -See treatment as above. Hypertension, history CVA, history of NM, CAD, hypertension, BPH, depression, blindness -Will resume home medication. Hypokalemia: Replace and monitor. DVT prophylaxis -SCDs. Chemoprophylaxis contra indicated secondary to possible active GI bleed. Pepe Guerrero MD Jan 01, 2017 13:03
[2017-01-01] MEDS ORDERED: APIX2.5T PO (14:51)
[2017-01-01] MEDS ORDERED: OMEP40CA2 PO (14:51)
--- NOTE | 2017-01-01 14:51 | HHI.DS ---
Discharge Summary Admission Date Dec 30, 2016 at 12:13 Discharge Date: Jan 02, 2017 Admitting Diagnosis GI BLEED, ANEMIA (1) GI bleed ICD Code: K92.2 - Gastrointestinal hemorrhage, unspecified Status: Acute (2) Anemia ICD Code: D64.9 - Anemia, unspecified Status: Acute Procedures EGD Brief History - From Admission History of present illness from the admitting physician This is a 66-year-old male past medical history of CVA, paroxysmal atrial fibrillation, hypertension, blindness, history of gastric AV malformation, and anemia who presented with abnormal hemoglobin [facility]7 [facility]. He also had blood in his stools. Patient is selectively nonverbal. His nursing aid us at the bedside during the interview. Patient will not give me a history but does shake his head yes or no at times. Per patient's nursing aid he does understand you and if he saying yes or no he means it. She stated that he will sometimes talk to you but does not talk a lot. She stated that during our interview this is his baseline. Per patient's nurse he's been having intermittent blood in his stool since the weekend. She stated that it is bright red blood. Patient then had a hemoglobin done today in which it was 7.7 [facility] the [facility]. He was sent to [facility] to evaluate for GI bleed and anemia. Per ED physician Dr. Witt he also stated that he noted blood in stools. Since patient is selectively nonverbal and would not give me a history unable to obtain ROS. CBC/BMP: 01/01/17 0520 12/31/16 0252 Significant Findings Laboratory Tests Test 12/30/16 10:30 12/30/16 20:26 12/31/16 02:52 12/31/16 08:00 Red Blood Count 4.45 MIL/MM3 (4.50-5.90) 3.74 MIL/MM3 (4.50-5.90) Hemoglobin 8.8 GM/DL (13.0-17.0) 7.7 GM/DL (13.0-17.0) 7.4 GM/DL (13.0-17.0) 7.6 GM/DL (13.0-17.0) Hematocrit 29.9 % (39.0-51.0) 24.7 % (39.0-51.0) Mean Corpuscular Volume 67.2 FL (80.0-100.0) 66.1 FL (80.0-100.0) Mean Corpuscular Hemoglobin 19.8 PG (27.0-34.0) 19.9 PG (27.0-34.0) Mean Corpuscular Hemoglobin Concent 29.4 % (32.0-36.0) 30.0 % (32.0-36.0) Red Cell Distribution Width 20.4 % (11.6-17.2) 20.7 % (11.6-17.2) Monocytes (%) (Auto) 9.4 % (0.0-8.0) Random Glucose 236 MG/DL (74-106) 130 MG/DL (74-106) Albumin 2.6 GM/DL (3.4-5.0) Calcium Level 8.4 MG/DL (8.5-10.1) 7.9 MG/DL (8.5-10.1) Alkaline Phosphatase 144 U/L (45-117) Total Bilirubin 0.1 MG/DL (0.2-1.0) Estimat Glomerular Filtration Rate 66 ML/MIN (>89) Troponin I LESS THAN 0.02 NG/ML Potassium Level 3.2 MEQ/L (3.5-5.1) Chloride Level 108 MEQ/L (98-107) Test 12/31/16 18:29 01/01/17 05:20 Hemoglobin 9.3 GM/DL (13.0-17.0) 9.0 GM/DL (13.0-17.0) Hematocrit 29.1 % (39.0-51.0) 29.8 % (39.0-51.0) Red Blood Count 4.37 MIL/MM3 (4.50-5.90) Mean Corpuscular Volume 68.1 FL (80.0-100.0) Mean Corpuscular Hemoglobin 20.7 PG (27.0-34.0) Mean Corpuscular Hemoglobin Concent 30.4 % (32.0-36.0) Red Cell Distribution Width 21.3 % (11.6-17.2) Monocytes (%) (Auto) 12.1 % (0.0-8.0) Imaging Last Impressions Chest X-Ray 12/30/16 1008 Signed Impressions: Service Date/Time: Friday, December 30, 2016 10:53 - CONCLUSION: No acute cardiopulmonary abnormality is identified. Fernando Das MD PE at Discharge GENERAL: Obese male in no apparent distress. CARDIOVASCULAR: Normal rate and regular rhythm without murmurs, gallops, or rubs. RESPIRATORY: Good respiratory efforts. Breath sounds equal and clear to auscultation bilaterally. GASTROINTESTINAL: Abdomen soft, non-tender, non-distended. Normal active bowel sounds MUSCULOSKELETAL: Extremities without cyanosis, or edema. NEURO: Awake and alert. Moves all ext x4. Does not interact much PSYCH: Calm Pt update on day of discharge Patient reports is feeling well. He is status post EGD which showed esophagitis. I discussed the case with GI. Okay to discharge him on a reduced dose of Eliquis. Hospital Course 66-year-old male history of CVA, history of [place], atrial fibrillation on chronic anticoagulation with Eliquis, history of gastric and colon AVM who presented with anemia and GI bleed. Evaluation and treatment course detailed below: GI bleed -He has a hx gastric and colon AVM seen on EGD/colonoscopy 06/09/16 and ablation. -Patient was transfused 1 unit of PRBC. He underwent EGD which showed esophagitis. I discussed the case with GI. Patient is discharged on a reduced dose of Eliquis. He is to follow-up outpatient. -Continue anti-reflux medications Anemia, iron deficiency -Patient is on iron supplement. Paroxysmal atrial fibrillation on chronic anticoagulation with Eliquis -Resume Eliquis at half dose. Hypertension, history CVA, history of [place], CAD, hypertension, BPH, depression, blindness - resume home medication. Hypokalemia: Replaced. Pt Condition on Discharge: Good Discharge Disposition: Discharge to SNF Discharge Time: > 30 minutes Discharge Instructions DIET: Follow Instructions for: Heart Healthy Diet Activities you can perform: Regular-No Restrictions Follow up Referrals: SNF/[facility] Changed Medications: Apixaban (Eliquis) 2.5 Mg Tab 2.5 MG PO BID for Blood Clot Prevention, #60 TAB 0 Refills (Changed from: Apixaban (Eliquis) 5 Mg Tab 5 Mg PO BID Blood Clot Prevention #60 TAB Ref 0) Omeprazole (Omeprazole) 40 Mg Cap 40 MG PO DAILY, #30 CAP 0 Refills (Changed from: Omeprazole 20 Mg Tab 20 Mg PO DAILY #30 TAB Ref 0) Continued Medications: Albuterol 18 GM Inh (Ventolin Hfa 18 GM Inh) 90 Mcg/Act Aer 2 PUFF INH Q6H PRN for SHORTNESS OF BREATH, #1 INHALER 0 Refills Amlodipine (Amlodipine) 10 Mg Tab 10 MG PO DAILY for Blood Pressure Management, #30 TAB 0 Refills Atorvastatin (Atorvastatin) 80 Mg Tab 40 MG PO HS for Cholesterol Management, #30 TAB 0 Refills Cyanocobalamin (Vitamin B-12) 1,000 Mcg Tab 1000 MCG PO DAILY for Nutritional Supplement, #1 BOTTLE 0 Refills Ferrous Sulfate (Ferrous Sulfate) 325 Mg (65 Mg Iron) Tablet 325 MG PO TIDPC for Nutritional Supplement, #90 TAB 0 Refills Fluoxetine (Fluoxetine) 40 Mg Cap 40 CAP PO DAILY, #30 CAP 0 Refills Gabapentin (Gabapentin) 300 Mg Cap 300 MG PO HS, #30 CAP 0 Refills Lisinopril (Lisinopril) 20 Mg Tab 20 MG PO DAILY, #30 TAB 0 Refills Metformin ER (Metformin ER) 500 Mg Best 1000 MG PO DAILY for Blood Sugar Management, TAB 0 Refills Mirtazapine (Remeron) 15 Mg Tab 15 MG PO DAILY for Depression Control, #30 TAB 0 Refills Oxybutynin (Ditropan) 5 Mg Tab 5 MG PO BID for Urinary Symptom Managemen, #60 TAB 0 Refills Risperidone (Risperdal) 1 Mg Tab 1 MG PO TID, #30 TAB 0 Refills Sitagliptin (Januvia) 50 Mg Tab 50 MG PO DAILY for Blood Sugar Management, #30 TAB 0 Refills Tamsulosin (Tamsulosin) 0.4 Mg Cap 0.4 MG PO DAILY for Manage Prostate Problems, #30 CAP 0 Refills Terazosin (Terazosin) 2 Mg Cap 2 MG PO HS, #30 CAP 0 Refills Peep Guerrero MD Jan 01, 2017 14:51
== END 2017-01-01 16:52 | DRG 379 ==
LOC: NEPE 09:42 → NEDA 12:12 → OBSVTOIN 12:13 → N07B 13:24
PROVIDERS: ADMIT Family Medicine; ATTEND Family Medicine
PROC: 30253N1 (ICD-10-PCS; 2016-12-30)
PROC: 0DB68ZX Excision of Stomach, Via Natural or Artificial Opening Endoscopic, Diagnostic (ICD-10-PCS; principal; 2017-01-01 11:32)
DX: K92.1 Melena (principal); I48.0 Paroxysmal atrial fibrillation; D50.9 Iron deficiency anemia, unspecified; I10 Essential (primary) hypertension; E11.9 Type 2 diabetes mellitus without complications; F32.9 Major depressive disorder, single episode, unspecified; E78.5 Hyperlipidemia, unspecified; Z79.01 Long term (current) use of anticoagulants; I25.2 Old myocardial infarction; I25.10 Atherosclerotic heart disease of native coronary artery without angina pectoris; N40.0 Benign prostatic hyperplasia without lower urinary tract symptoms; H54.7 Unspecified visual loss; Z86.73 Personal history of transient ischemic attack (TIA), and cerebral infarction without residual deficits; E87.6 Hypokalemia; K20.9 Esophagitis, unspecified; K63.5 Polyp of colon; Z79.4 Long term (current) use of insulin; K29.70 Gastritis, unspecified, without bleeding
CPT/HCPCS: 36430; 71010; 80048; 80053; 82948; 83690; 83880; 84484; 85014; 85018; 85025; 85027; 85610; 85730; 86850; 86900; 86901; 86920; 88305; 88312; 93005; C9113; P9016

== ENCOUNTER 2017-05-15 09:18 | Inpatient (IN) | payer MEDICARE, OTHER ==
[~2017-05-15] VITALS: Ht 167.6 cm; Wt 71.2 kg
[2017-05-15] VITALS (11 sets, daily range): BP systolic 106–163; BP diastolic 63–74; PULSE 58–93; RESP 13–18; TEMP 97.6–98.3; O2SAT 92–100
[~2017-05-15 09:18] MED LIST changes: +APIX2.5T PO; -CARA1TAB6 PO; -FERR325T PO; +FERR325T18 PO; -FLUO20CA4 PO; +FLUO40CA PO; -MECL12.574 PO; -NOVOLOGMXP SQ; +OMEP40CA2 PO; -PROT40TA PO; +REME15TA PO; +RISP1 PO; +SITA50 PO; +TAMS0.4C4 PO; +TERA2CAP3 PO; -TRAM50TA PO; -TRAZ100T4 PO
--- NOTE | 2017-05-15 09:53 | PD ---
HPI Chief Complaint: Abnormal Results Time Seen by Provider: 09:49 Travel History International Travel<30 days: No Contact w/Intl Traveler<30days: No Traveled to known affect area: No History of Present Illness HPI Patient sent from rehab with low hemoglobin. APPARENTLY PATIENT HAS NO COMPLAINT, OTHER THAN JUST FEELING TIRED. DENIES FARR/CP/ABDPAIN/BACKPAIN/FLANK PAIN. Allergy to acyclovir and celecoxib Past medical history significant for macular degeneration with blindness, CVA, HI, hypercholesterolemia, atrial fibrillation, hypertension, GI bleed, appendectomy, GERD, diabetes, depression, anemia PFSH Past Medical History Anemia: Yes Asthma: No Atrial Fibrillation: Yes Autoimmune Disease: No Blood Disorders: No Anxiety: No Depression: Yes Heart Rhythm Problems: No Cancer: No Cardiovascular Problems: Yes High Cholesterol: Yes Chemotherapy: No Chest Pain: No Congestive Heart Failure: No COPD: No Cerebrovascular Accident: Yes Diabetes: Yes Patient Takes Glucophage: Yes Diminished Hearing: No Endocrine: No Gastrointestinal Disorders: Yes (GI BLEED ) GERD: Yes Glaucoma: No Genitourinary: No Headaches: No Hepatitis: No Hiatal Hernia: No Hypertension: Yes Immune Disorder: No Kidney Stones: No Musculoskeletal: No Neurologic: No Psychiatric: Yes Reproductive: No Respiratory: No Immunizations Current: Yes Migraines: No Myocardial Infarction: Yes (01/16) Radiation Therapy: No Renal Failure: No Seizures: No Sickle Cell Disease: No Sleep Apnea: No Thyroid Disease: No Ulcer: No Past Surgical History Abdominal Surgery: Yes (APPY) AICD: No Appendectomy: Yes Arteriovenous Shunt: No Cardiac Surgery: No Cholecystectomy: No Ear Surgery: No Endocrine Surgery: No Eye Surgery: No Genitourinary Surgery: No Gynecologic Surgery: No Insulin Pump: No Joint Replacement: No Oral Surgery: No Pacemaker: No Thoracic Surgery: No Social History Alcohol Use: No Tobacco Use: No Substance Use: No Allergies-Medications (Allergen,Severity, Reaction): Coded Allergies: celecoxib (Unverified Allergy, Severe, Hives, 05/15/17) acyclovir (Verified Allergy, Unknown, 05/15/17) Reported Meds & Prescriptions Reported Meds & Active Scripts Active Eliquis (Apixaban) 2.5 Mg Tab 2.5 Mg PO BID Reported Omeprazole 20 Mg Tab 20 Mg PO DAILY Milk of Magnesia Liq (Magnesium Hydroxide) 400 Mg/5 Ml Susp 30 Ml PO DAILY PRN Enema Disposable (Sodium Phosphates) 19 Gram-7 Gram/118 Ml [place] 1 Applic [place] DAILY PRN Dulcolax Supp (Bisacodyl) 10 Mg Supp 10 Mg RECTAL DAILY PRN Risperidone 2 Mg Tab 2 Mg PO Q12HR Fluoxetine (Fluoxetine HCl) 20 Mg Tab 20 Mg PO DAILY Oxybutynin ER 24 HR (Oxybutynin Chloride) 5 Mg Tab 5 Mg PO DAILY Metformin (Metformin HCl) 500 Mg Tab 500 Mg PO BID Atorvastatin (Atorvastatin Calcium) 40 Mg Tab 40 Mg PO HS Terazosin (Terazosin HCl) 2 Mg Cap 2 Mg PO HS Tamsulosin (Tamsulosin HCl) 0.4 Mg Cap 0.4 Mg PO DAILY Remeron (Mirtazapine) 15 Mg Tab 15 Mg PO HS Lisinopril 20 Mg Tab 20 Mg PO DAILY Januvia (Sitagliptin Phosphate) 50 Mg Tab 50 Mg PO DAILY Ferrous Sulfate 325 Mg (65 Mg Iron) Tablet 325 Mg PO TIDPC Gabapentin 300 Mg Cap 300 Mg PO HS Vitamin B-12 (Cyanocobalamin) 1,000 Mcg Tab 1,000 Mcg PO DAILY Amlodipine (Amlodipine Besylate) 10 Mg Tab 10 Mg PO DAILY Ventolin Hfa 18 GM Inh (Albuterol Sulfate) 90 Mcg/Act Aer 2 Puff INH Q6H PRN Review of Systems General / Constitutional: No: Fever Eyes: No: Visual changes HENT: No: Headaches Cardiovascular: No: Chest Pain or Discomfort Respiratory: No: Shortness of Breath Gastrointestinal: No: Abdominal Pain Genitourinary: No: Dysuria Musculoskeletal: No: Pain Skin: No Rash Neurologic: Positive: Weakness Psychiatric: No: Depression Endocrine: No: Polydipsia Hematologic/Lymphatic: No: Easy Bruising Physical Exam Narrative GENERAL: SKIN: Warm and dry. HEAD: Atraumatic. Normocephalic. EYES: Pupils equal and round. No scleral icterus. No injection or drainage. ENT: No nasal bleeding or discharge. Mucous membranes pink and moist. NECK: Trachea midline. No JVD. CARDIOVASCULAR: Regular rate and rhythm. RESPIRATORY: No accessory muscle use. Clear to auscultation. Breath sounds equal bilaterally. GASTROINTESTINAL: Abdomen soft, non-tender, nondistended. Guaiac tests performed by me with RN page at bedside: Black tarry appearing stool, positive Hemoccult MUSCULOSKELETAL: Extremities without clubbing, cyanosis, or edema. No obvious deformities. NEUROLOGICAL: Patient has generalized weakness, GCS is 14 out of 15, patient required heavy assistance in order to be helped PSYCHIATRIC: Unable to assess Data Data Last Documented VS Vital Signs Date Time Temp Pulse Resp B/P (MAP) Pulse Ox O2 Delivery O2 Flow Rate FiO2 05/15/17 10:30 67 18 92 Room Air 05/15/17 09:30 98.2 Orders Orders Electrocardiogram (05/15/17 09:50) Complete Blood Count With Diff (05/15/17 09:50) Comprehensive Metabolic Panel (05/15/17 09:50) Troponin I (05/15/17 09:50) Prothrombin Time / Inr (Pt) (05/15/17 09:50) Act Partial Throm Time (Ptt) (05/15/17 09:50) Lipase (05/15/17 09:50) Urinalysis - C+S If Indicated (05/15/17 09:50) Thyroid Stimulating Hormone (05/15/17 09:50) Chest, Single Ap (05/15/17 09:50) Iv Access Insert/Monitor (05/15/17 09:50) Ecg Monitoring (05/15/17 09:50) Oximetry (05/15/17 09:50) Type And Screen (05/15/17 09:50) Cath For Specimen (05/15/17 11:34) Red Blood Cells (Rbc) (05/15/17 11:35) Blood Product Administration (05/15/17 11:35) Sodium Chlor 0.9% 250 Ml Inj (Ns 250 Ml (05/15/17 11:45) Labs Laboratory Tests Test 05/15/17 10:24 White Blood Count 5.2 TH/MM3 Red Blood Count 3.85 MIL/MM3 Hemoglobin 6.9 GM/DL Hematocrit 23.5 % Mean Corpuscular Volume 61.0 FL Mean Corpuscular Hemoglobin 18.0 PG Mean Corpuscular Hemoglobin Concent 29.6 % Red Cell Distribution Width 20.0 % Platelet Count 280 TH/MM3 Mean Platelet Volume 8.4 FL Neutrophils (%) (Auto) 63.8 % Lymphocytes (%) (Auto) 24.2 % Monocytes (%) (Auto) 9.0 % Eosinophils (%) (Auto) 2.5 % Basophils (%) (Auto) 0.5 % Neutrophils # (Auto) 3.3 TH/MM3 Lymphocytes # (Auto) 1.3 TH/MM3 Monocytes # (Auto) 0.5 TH/MM3 Eosinophils # (Auto) 0.1 TH/MM3 Basophils # (Auto) 0.0 TH/MM3 CBC Comment DIFF FINAL Differential Comment Prothrombin Time 10.5 SEC Prothromb Time International Ratio 1.0 RATIO Activated Partial Thromboplast Time 27.1 SEC MDM Medical Decision Making Medical Screen Exam Complete: Yes Emergency Medical Condition: Yes Medical Record Reviewed: Yes Differential Diagnosis Anemia versus dehydration versus GI bleed versus bone marrow suppression versus infectious source Narrative Course Patient CBC showed normal platelet count, no leukocytosis, no left shift, however anemia with H&H of 6.9/23.5 Coagulation profile is within normal limits Chemistry and blood bank currently pending as of 1130 Chest x-ray read by radiologist as no acute cardiopulmonary disease Diagnosis Primary Impression: Anemia Qualified Codes: D64.9 - Anemia, unspecified Additional Impression: GI bleed Qualified Codes: K92.2 - Gastrointestinal hemorrhage, unspecified Admitting Information Admitting Physician Requests: Skyler Saeed MD May 15, 2017 09:53
--- NOTE | 2017-05-15 10:24 | RADRPT ---
EXAM DATE/TIME: 05/15/2017 09:55 [facility] COMPARISON: CHEST SINGLE AP, December 30, 2016, 10:53. INDICATIONS : Weakness and confusion. MEDICAL HISTORY : Anemia. SURGICAL HISTORY : None. ENCOUNTER: Initial ACUITY: 1 day PAIN SCORE: Non-responsive. LOCATION: Bilateral chest FINDINGS: A single view of the chest demonstrates the lungs to be symmetrically aerated without evidence of mas s, infiltrate or effusion. The cardiomediastinal contours are unremarkable. Osseous structures are intact. CONCLUSION: 1. No acute cardiopulmonary disease. John Nolasco MD on May 15, 2017 at 10:21 Board Certified Radiologist. This report was verified electronically.
[2017-05-15] MEDS ORDERED: ENEMENE5 PR (10:37)
[2017-05-15] MEDS ORDERED: OMEP20TA93 PO (10:37)
[2017-05-15] MEDS ORDERED: FLUO1TAB3 PO (10:37)
[2017-05-15] MEDS ORDERED: MILKSUS PO (10:37)
[2017-05-15] MEDS ORDERED: ATOR40TA16 PO (10:37)
[2017-05-15] MEDS ORDERED: DULC10SU3 RECTAL (10:37)
[2017-05-15] MEDS ORDERED: OXYB5TAB PO (10:37)
[2017-05-15] MEDS ORDERED: METF500T PO (10:37)
[2017-05-15] MEDS ORDERED: RISP2TAB2 PO (10:37)
[2017-05-15 11:18] LABS: AUTOMATED NEUTROPHIL # 3.3 TH/MM3 (1.8-7.7); BASOPHIL % 0.5 % (0.0-2.0); EOSINOPHIL # 0.1 TH/MM3 (0-0.4); EOSINOPHIL % 2.5 % (0.0-4.0); HEMATOCRIT 23.5 % (39.0-51.0); LYMPH % 24.2 % (9.0-44.0); LYMPHOCYTE # 1.3 TH/MM3 (1.0-4.8); MEAN CORPUSCULAR HGB CONC 29.6 % (32.0-36.0); MEAN PLATELET VOLUME 8.4 FL (7.0-11.0); MONOCYTE # 0.5 TH/MM3 (0-0.9); NEUT % 63.8 % (16.0-70.0); PLATELET COUNT 280 TH/MM3 (150-450); RED BLOOD COUNT 3.85 MIL/MM3 (4.50-5.90); WHITE BLOOD COUNT 5.2 TH/MM3 (4.0-11.0)
[2017-05-15 11:21] LABS: HEMOGLOBIN 6.9 GM/DL (13.0-17.0)
[2017-05-15 11:29] LABS: PROTHROMBIN TIME - PATIENT 10.5 SEC (9.8-11.6)
[2017-05-15] MEDS ORDERED: SODIUM CHLOR 0.9% 250 ML INJ 250 ML IV ONE (11:45)
[2017-05-15 11:54] LABS: ALBUMIN 2.6 GM/DL (3.4-5.0); AST (GOT) 12 U/L (15-37); BICARBONATE 23.9 MEQ/L (21.0-32.0); BLOOD UREA NITROGEN 26 MG/DL (7-18); CALCIUM 8.1 MG/DL (8.5-10.1); CHLORIDE 110 MEQ/L (98-107); CREATININE 0.89 MG/DL (0.60-1.30); GLOMERULAR FILTRATION RATE 86 ML/MIN (>89); GLUCOSE,RANDOM 109 MG/DL (74-106); SODIUM (NA) 143 MEQ/L (136-145)
[2017-05-15 12:07] LABS: ALKALINE PHOSPHATASE 126 U/L (45-117); ALT (GPT) 12 U/L (12-78); TOTAL BILIRUBIN ADULT 0.2 MG/DL (0.2-1.0); TOTAL PROTEIN 6.9 GM/DL (6.4-8.2); TROPONIN I LESS THAN 0.02 NG/ML (0.02-0.05)
[2017-05-15] MEDS ORDERED: SODIUM CHLORIDE 0.9% FLUSH 10 ML FLUSH IV FLUSH PRN (12:30)
[2017-05-15] MEDS ORDERED: ONDANSETRON HCL 4 MG/2 ML VIAL IVP PRN (12:30)
[2017-05-15] MEDS ORDERED: NALOXONE HCL 0.4 MG/ML AMP IV PUSH PRN (12:30)
[2017-05-15] MEDS ORDERED: PANTOPRAZOLE INJ 80 MG in SODIUM CHLORIDE 0.9% INJ 35 ML IV ONE (13:32)
--- NOTE | 2017-05-15 13:56 | EKG ---
Date Performed: 05/15/2017 Time Performed: 10:36:53 PTAGE: 66 years EKG: Sinus rhythm NORMAL ECG Since PREVIOUS TRACING , no significant change noted PREVIOUS TRACIN11/29/16 DOCTOR: Josette Mclaughlin Interpretating Date/Time 05/15/2017 13:55:21
[2017-05-15 14:53] LABS: BILIRUBIN, URINE NEG (NEG); BLOOD, URINE NEG (NEG); GLUCOSE,URINE NEG (NEG); HYALINE CAST, URINE 3 /lpf (RARE); KETONE, URINE NEG (NEG); MUCUS URINE FEW /lpf (OCC); NITRITE,URINE NEG (NEG); PH, URINE 5.5 (5.0-8.5); URINE COLOR YELLOW (YELLW/STRAW); URINE LEUKOCYTE ESTERASE NEG (NEG)
[2017-05-15] MEDS: PANTOPRAZOLE INJ 80 MG in SODIUM CHLORIDE 0.9% INJ 100 ML IV SCH ×2 (17:07→23:32)
[2017-05-15] MEDS ORDERED: PEG (High)/E-LYTE SOLN 4000 ML BTL PO ONE (18:00)
--- NOTE | 2017-05-15 18:08 | HHI.HP ---
[facility] Unknown Admission Diagnosis SYMPTOMATIC ANEMIA, GI BLEED Diagnoses: Travel History International Travel<30 Days: No Contact w/Intl Traveler <30 Da: No Traveled to Known Affected Are: No History of Present Illness History of her ER physician communication, and review of medical records, and skilled nursing transfer notes. Patient was sent from his skilled nursing because of low hemoglobin. Patient himself is not able to give me any history. He would answer yes or no questions by nodding his head. Once in a while, he would say 1 or 2 words. Per skilled nursing transfer notes, patient was having black tarry stools. In the emergency room, his guaiac was positive positive. [facility] He is on Eliquis at home. Review of system is extremely limited because of patient's condition. Review of Systems ROS Limitations: Poor Historian Past Family Social History Past Medical History Hypertension Hyperlipidemia Diabetes Peripheral neuropathy Coronary artery disease History of CVA Blindness Depression History of AV malformations A. fib Chronic anticoagulation on Eliquis BPH Past Surgical History Appendectomy EGD and colonoscopy done in May 2016 Allergies: Coded Allergies: celecoxib (Unverified Allergy, Severe, Hives, 05/15/17) acyclovir (Verified Allergy, Unknown, 05/15/17) Family History Unknown. Social History Unknown. Physical Exam Vital Signs Vital Signs Date Time Temp Pulse Resp B/P (MAP) Pulse Ox O2 Delivery O2 Flow Rate FiO2 05/15/17 17:15 97.6 68 14 153/68 97 05/15/17 16:30 98.0 69 18 140/69 (92) 98 05/15/17 14:02 05/15/17 13:45 97.6 79 18 163/69 100 05/15/17 13:37 97.9 61 18 142/63 (89) 100 Nasal Cannula 2.00 05/15/17 13:20 97.9 61 17 142/63 100 05/15/17 10:30 67 18 92 Room Air 05/15/17 09:30 98.2 70 18 106/72 (83) 98 Room Air 05/15/17 09:30 69 18 98 Room Air 05/15/17 09:26 98.3 93 18 106/72 (14) 95 Physical Exam GENERAL: This is a thin elderly gentleman, not in acute distress. Flat affect. Only answers yes or no by nodding his head or in short sentences. SKIN: No rashes, ecchymoses or lesions. Cool and dry. HEAD: Atraumatic. Normocephalic. No temporal or scalp tenderness. EYES: No scleral icterus. No injection or drainage. ENT: Nose without bleeding, purulent drainage or septal hematoma. . Airway patent. NECK: Trachea midline. No JVD CARDIOVASCULAR: Regular rate and rhythm without murmurs, gallops, or rubs. RESPIRATORY: Decreased air entry bilaterally. Poor inspiratory effort. GASTROINTESTINAL: Abdomen soft, non-tender, nondistended.No guarding. MUSCULOSKELETAL: Extremities without clubbing, cyanosis, or edema. No calf tenderness. NEUROLOGICAL: Awake Motor and sensory grossly within normal limits but not able to follow commands. Normal speech. Not communicating much. Laboratory Laboratory Tests Test 05/15/17 10:24 05/15/17 13:20 White Blood Count 5.2 Red Blood Count 3.85 Hemoglobin 6.9 Hematocrit 23.5 Mean Corpuscular Volume 61.0 Mean Corpuscular Hemoglobin 18.0 Mean Corpuscular Hemoglobin Concent 29.6 Red Cell Distribution Width 20.0 Platelet Count 280 Mean Platelet Volume 8.4 Neutrophils (%) (Auto) 63.8 Lymphocytes (%) (Auto) 24.2 Monocytes (%) (Auto) 9.0 Eosinophils (%) (Auto) 2.5 Basophils (%) (Auto) 0.5 Neutrophils # (Auto) 3.3 Lymphocytes # (Auto) 1.3 Monocytes # (Auto) 0.5 Eosinophils # (Auto) 0.1 Basophils # (Auto) 0.0 CBC Comment DIFF FINAL Differential Comment Prothrombin Time 10.5 Prothromb Time International Ratio 1.0 Activated Partial Thromboplast Time 27.1 Blood Urea Nitrogen 26 Creatinine 0.89 Random Glucose 109 Total Protein 6.9 Albumin 2.6 Calcium Level 8.1 Alkaline Phosphatase 126 Aspartate Amino Transf (AST/SGOT) 12 Alanine Aminotransferase (ALT/SGPT) 12 Total Bilirubin 0.2 Sodium Level 143 Potassium Level 3.6 Chloride Level 110 Carbon Dioxide Level 23.9 Anion Gap 9 Estimat Glomerular Filtration Rate 86 Troponin I LESS THAN 0.02 Lipase 121 Thyroid Stimulating Hormone 3rd Gen 1.360 Urine Color YELLOW Urine Turbidity CLEAR Urine pH 5.5 Urine Specific [place] 1.017 Urine Protein NEG Urine Glucose (UA) NEG Urine Ketones NEG Urine Occult Blood NEG Urine Nitrite NEG Urine Bilirubin NEG Urine Urobilinogen LESS THAN 2.0 Urine Leukocyte Esterase NEG Urine RBC LESS THAN 1 Urine WBC 1 Urine Hyaline Casts 3 Urine Mucus FEW Microscopic Urinalysis Comment CULT NOT INDICATED Result Diagram: 05/15/17 1024 05/15/17 1024 Imaging Last 48 hours Impressions Chest X-Ray 05/15/17 0950 Signed Impressions: Service Date/Time: May 09:55 - CONCLUSION: 1. No acute cardiopulmonary disease. MD Ny Sung VTE Risk Assessment Ny VTE Risk Assessment: Mod/High Risk (score >= 2) Ny Risk Assessment Model Point Value = 1 Point Value = 2 Point Value = 3 Point Value = 5 Age 41-60 Minor surgery BMI > 25 kg/m2 Swollen legs Varicose veins or History of unexplained or recurrent spontaneous Oral contraceptives or hormone replacement Sepsis (< 1 month) Serious lung disease, including pneumonia (< 1 month) Abnormal pulmonary function Acute myocardial infarction Congestive heart failure (< 1 month) History of inflammatory bowel disease Medical patient at bed rest Age 61-74 Arthroscopic surgery Major open surgery (> 45 min) Laparoscopic surgery (> 45 min) Malignancy Confined to bed (> 72 hours) Immobilizing plaster cast Central venous access Age >= 75 History of VTE Family history of VTE Factor V Leiden Prothrombin [id number] Lupus anticoagulant Anticardiolipin antibodies Elevated serum homocysteine Heparin-induced thrombocytopenia Other congenital or acquired thrombophilia Stroke (< 1 month) Elective arthroplasty Hip, pelvis, or leg fracture Acute spinal cord injury (< 1 month) Prophylaxis Regimen Total Risk Factor Score Risk Level Prophylaxis Regimen 0-1 Low Early ambulation 2 Moderate Order ONE of the following: *Sequential Compression Device (SCD) *Heparin 5000 units SQ BID 3-4 Higher Order ONE of the following medications: *Heparin 5000 units SQ TID *Enoxaparin/Lovenox 40 mg SQ daily (WT < 150 kg, CrCl > 30 mL/min) *Enoxaparin/Lovenox 30 mg SQ daily (WT < 150 kg, CrCl > 10-29 mL/min) *Enoxaparin/Lovenox 30 mg SQ BID (WT < 150 kg, CrCl > 30 mL/min) AND/OR *Sequential Compression Device (SCD) 5 or more Highest Order ONE of the following medications: *Heparin 5000 units SQ TID (Preferred with Epidurals) *Enoxaparin/Lovenox 40 mg SQ daily (WT < 150 kg, CrCl > 30 mL/min) *Enoxaparin/Lovenox 30 mg SQ daily (WT < 150 kg, CrCl > 10-29 mL/min) *Enoxaparin/Lovenox 30 mg SQ BID (WT < 150 kg, CrCl > 30 mL/min) AND *Sequential Compression Device (SCD) Assessment and Plan Assessment and Plan Impression: GI bleed Chronic anticoagulation on Eliquis History of gastric AV malformations Hypertension Hyperlipidemia Diabetes Peripheral neuropathy Coronary artery disease History of CVA Blindness Depression A. fib BPH Plan: Transfuse 2 units of PRBC Repeat hemoglobin and hematocrit after transfusion. GI was consulted. EGD in a.m. Hold blood thinners. Protonix IV drip. Hold oral hypoglycemic medications. Monitor fingersticks every 4 hours. Start patient on D5 normal saline at 42 cc/h. Watch for fluid overload with blood transfusions and IV fluids. Resume rest of his home medications. DVT prophylaxis with SCD. GI prophylaxis on pantoprazole. Discussed Condition With Patient, nursing staff, ER physician Physician Certification 2 Midnight Certification Type: Admission for Inpatient Services Order for Inpatient Services The services are ordered in accordance with Medicare regulations or non- Medicare payer requirements, as applicable. In the case of services not specified as inpatient-only, they are appropriately provided as inpatient services in accordance with the 2-midnight benchmark. Estimated LOS (days): 3 days is the estimated time the patient will need to remain in the hospital, assuming treatment plan goals are met and no additional complications. Post-Hospital Plan: [facility] Antolin Nascimento MD May 15, 2017 18:08
[2017-05-15] MEDS ORDERED: DEXTROSE 50% IN WATER 50 ML VIAL(D50) IV PUSH PRN (18:15)
[2017-05-15] MEDS ORDERED: GLUCAGON 1 MG/ML VIAL OTHER PRN (18:15)
[2017-05-15] MEDS: DEXT 5%-NACL 0.9% 1000 ML INJ 1,000 ML IV SCH (19:56)
[2017-05-15] MEDS: FERROUS SULFATE 325 MG (65 MG ELEMENTAL IRON) TAB PO SCH (19:57)
[2017-05-15] MEDS: SODIUM CHLORIDE 0.9% FLUSH 10 ML FLUSH IV FLUSH SCH (19:58)
[2017-05-15] MEDS ORDERED: RISPERIDONE 2 MG PO SCH (21:00)
[2017-05-15] MEDS: risperiDONE 1 MG TAB PO SCH (21:23)
[2017-05-15] MEDS: GABAPENTIN 300 MG CAP PO SCH (21:23)
[2017-05-15] MEDS: ATORVASTATIN 40 MG TAB PO SCH (21:23)
[2017-05-15] MEDS: TERAZOSIN HCL 1 MG CAP PO SCH (21:23)
[2017-05-15] MEDS: MIRTAZAPINE 15 MG TAB PO SCH (21:24)
[2017-05-15] MEDS ORDERED: METOPROLOL TARTRATE 25 MG TAB PO PRN (21:45)
[2017-05-15] MEDS ORDERED: INSULIN HUMAN REGULAR 1,000 UNITS/10 ML VIAL SQ PRN (21:45)
[2017-05-15] MEDS ORDERED: LACTATED RINGER'S 1000 ML IV PRN (21:45)
[2017-05-15] MEDS ORDERED: POVIDONE IODINE 5% (ANTISEPSIS KIT) 4 APPLICATIONS EACH NARE PRN (21:45)
[2017-05-15] MEDS ORDERED: CHLORHEXIDINE GLUCONATE 2 % 1 PACK (2 CLOTHS) TOPICAL PRN (21:45)
[2017-05-15] MEDS ORDERED: SODIUM CHLORID 0.9% 500 ML IV PRN (21:45)
[2017-05-16] VITALS: BP 122/60; PULSE 51; RESP 16; TEMP 97.5; O2SAT 100
[2017-05-16 00:37] LABS: HEMATOCRIT 28.5 % (39.0-51.0); HEMOGLOBIN 8.9 GM/DL (13.0-17.0)
[2017-05-16] MEDS: PANTOPRAZOLE INJ 80 MG in SODIUM CHLORIDE 0.9% INJ 100 ML IV SCH ×3 (01:51→18:45)
[2017-05-16 04:00] VITALS: BP 123/68; PULSE 61; RESP 18; TEMP 97.3; O2SAT 100
[2017-05-16 07:22] VITALS: BP 138/65; PULSE 62; RESP 18; TEMP 98.3; O2SAT 97
[2017-05-16 07:42] LABS: AUTOMATED NEUTROPHIL # 3.8 TH/MM3 (1.8-7.7); BASOPHIL % 0.7 % (0.0-2.0); EOSINOPHIL # 0.2 TH/MM3 (0-0.4); EOSINOPHIL % 3.7 % (0.0-4.0); HEMATOCRIT 27.3 % (39.0-51.0); HEMOGLOBIN 8.7 GM/DL (13.0-17.0); LYMPH % 25.3 % (9.0-44.0); LYMPHOCYTE # 1.6 TH/MM3 (1.0-4.8); MEAN CELL VOLUME 65.1 FL (80.0-100.0); MEAN CORPUSCULAR HEMOGLOBIN 20.9 PG (27.0-34.0); MEAN CORPUSCULAR HGB CONC 32.1 % (32.0-36.0); MEAN PLATELET VOLUME 7.9 FL (7.0-11.0); MONO % 10.2 % (0.0-8.0); MONOCYTE # 0.7 TH/MM3 (0-0.9); NEUT % 60.1 % (16.0-70.0); PLATELET COUNT 215 TH/MM3 (150-450); RED BLOOD COUNT 4.19 MIL/MM3 (4.50-5.90); RED CELL DISTRIBUTION WIDTH 24.9 % (11.6-17.2); WHITE BLOOD COUNT 6.4 TH/MM3 (4.0-11.0)
[2017-05-16 07:46] LABS: BICARBONATE 27.7 MEQ/L (21.0-32.0); CALCIUM 7.6 MG/DL (8.5-10.1); CREATININE 0.59 MG/DL (0.60-1.30)
[2017-05-16] MEDS: TOLTERODINE TARTRATE 2 MG CAP LA PO SCH (09:00)
[2017-05-16] MEDS ORDERED: NON-FORMULARY DRUG (Oxybutynin ER 24 HR 5 MG) PO SCH (09:00)
[2017-05-16] MEDS: risperiDONE 1 MG TAB PO SCH ×2 (09:21→20:11)
[2017-05-16] MEDS: FERROUS SULFATE 325 MG (65 MG ELEMENTAL IRON) TAB PO SCH ×3 (09:21→18:44)
[2017-05-16] MEDS: LISINOPRIL 20 MG TAB PO SCH (09:21)
[2017-05-16] MEDS: TAMSULOSIN HCL 0.4 MG CAP PO SCH (09:21)
[2017-05-16] MEDS: FLUoxetine HCL 20 MG CAP PO SCH (09:21)
[2017-05-16] MEDS: SODIUM CHLORIDE 0.9% FLUSH 10 ML FLUSH IV FLUSH SCH ×2 (09:22→20:12)
--- NOTE | 2017-05-16 11:50 | GIPROC ---
[facility] [address] [facility]. [facility], [id number] EGD PROCEDURE REPORT EXAM DATE: 05/16/2017 PATIENT NAME: Arnulfo Bell MR #: [id number] BIRTHDATE: 1950 ATTENDING: Kunal Mercado MD ORDER #: [id number] CYLINDER PRESS OPERATOR: Tre Davison and Jordana Ortega STATUS: inpatient INDICATIONS: The patient is a 66 yr old male here for an EGD due to iron deficiency anemia PROCEDURE PERFORMED: EGD w/ biopsy MEDICATIONS: None and Per Anesthesia. TOPICAL ANESTHETIC: CONSENT: The patient understands the risks and benefits of the procedure and understands that these risks include, but are not limited to: sedation, allergic reaction, infection, perforation and/or bleeding. Alternative means of evaluation and treatment include, among others: physical exam, x-rays, and/or surgical intervention. The patient elects to proceed with this endoscopic procedure. medical equipment was checked for proper function. Hand hygiene and appropriate measures for infection prevention was taken. After the risks, benefits and alternatives of the procedure were thoroughly explained, Informed consent was verified, confirmed and timeout was successfully executed by the treatment team. The patient was anesthetized with topical anesthesia and the EC-[id number] (Pedi C) endoscope was introduced through the mouth and advanced to the second portion of the duodenum. Retroflexed views revealed no abnormalities The gastroscope was then slowly withdrawn and removed. ESOPHAGUS: There was LA Class A esophagitis noted. A biopsy was performed using cold forceps. Sample sent for histology. STOMACH: There was erythematous moderate gastritis in the gastric antrum. A biopsy was performed using cold forceps. Sample sent for histology. DUODENUM: The duodenal mucosa appeared normal in the bulb and second portion of the duodenum. ADVERSE EVENTS: There were no complications. IMPRESSIONS: 1. There was LA Class A esophagitis noted; biopsy was performed 2. There was erythematous gastritis in the gastric antrum; biopsy was performed 3. Normal duodenal mucosa in the bulb and second portion of the duodenum 4. Retroflexed views revealed no abnormalities RECOMMENDATIONS: 1. Await biopsy results. Biopsy results will not be ready for 7-10 days. If you don't hear from us in two weeks, call our office for biopsy results. 2. Anti-reflux regimen 3. Continue PPI 4. Avoid NSAIDS PATIENT CONDITION: stable DISPOSITION: Inpatient REPEAT EXAM: Return 2 years EGD pending biopsy results Kunal Mercado MD eSigned: Kunal Mercado MD 05/16/2017 11:49 AM cc: PATIENT NAME: Ray Arnulfo E MR#: [id number]
[2017-05-16] MEDS ORDERED: DO NOT ADM ANY ANTICOAGULANT DRUGS PRN (11:52)
--- NOTE | 2017-05-16 11:52 | GIPROC ---
[facility] [address] [facility]. [facility], [address] COLONOSCOPY PROCEDURE REPORT EXAM DATE: 05/16/2017 PATIENT NAME: Arnulfo Bell MR #: [id number] BIRTHDATE: 1950 ENDOSCOPIST: Kunal Mercado MD ORDER #: [id number] PPA TEACHER: Tre Davison and Jordana Ortega STATUS: inpatient INDICATIONS: The patient is a 66 yr old male here for a colonoscopy due to iron deficiency anemia PROCEDURE PERFORMED: Colonoscopy, incomplete MEDICATIONS: None and Per Anesthesia. PREP QUALITY: inadequate ESTIMATED BLOOD LOSS: None CONSENT: The patient understands the risks and benefits of the procedure and understands that these risks include, but are not limited to: sedation, allergic reaction, infection, perforation and/or bleeding. Alternative means of evaluation and treatment include, among others: physical exam, x-rays, and/or surgical intervention. The patient elects to proceed with this endoscopic procedure. medical equipment was checked for proper function. Hand hygiene and appropriate measures for infection prevention was taken. After the risks, benefits and alternatives of the procedure were thoroughly explained, Informed consent was verified, confirmed and timeout was successfully executed by the treatment team. A digital exam revealed external hemorrhoids The Pentax EC-[id number] endoscope was introduced through the anus and advanced to the cecum, which was identified by both the appendix and ileocecal valve. The instrument was then slowly withdrawn as the colon was fully examined. COLON FINDINGS: Poor prep, inadequate exam. Retroflexed views revealed internal hemorrhoids and Retroflexed views revealed medium internal hemorrhoids The scope was then completely withdrawn from the patient and the procedure terminated. ADVERSE EVENTS: There were no complications. IMPRESSIONS: 1. Poor prep, inadequate exam 2. Retroflexed views revealed internal hemorrhoids 3. Retroflexed views revealed medium internal hemorrhoids 4. Revealed external hemorrhoids RECOMMENDATIONS: 1. Continue surveillance 2. Yearly hemoccult 3. Place NG if pt agrees, continue prep over the weekend till clear RECALL: Return 1 day Colonoscopy Kunal Mercado MD eSigned: Kunal Mercado MD 05/16/2017 11:51 AM cc:
--- NOTE | 2017-05-16 11:57 | MB ---
cc: Kunal Mercado MD,Antolin GREENE DATE: 05/15/2017 PHYSICIAN: Dr. Nascimento REASON FOR CONSULTATION: Anemia. The patient was sent from a half-way for hemoglobin of 6. HISTORY OF PRESENT ILLNESS: The patient is nonverbal, does not give much history. Denies any pain, seems to be in no apparent distress. There was some concern the patient may have had some black stools prior to being transferred. REVIEW OF SYSTEMS: Limited. The patient is not having any active bleeding, does not seem to be in any distress. PAST MEDICAL HISTORY: As per chart, hypertension, hyperlipidemia, diabetes, peripheral neuropathy, coronary artery disease, history of CVA, blindness, depression, history of DVT, malformations atrial fibrillation, chronic anticoagulation on Eliquis, BPH. PAST SURGICAL HISTORY: Appendectomy, EGD, colonoscopy 05/2016. ALLERGIES: CELECOXIB and ACYCLOVIR. FAMILY HISTORY: Unknown. SOCIAL HISTORY: No tobacco, no alcohol reported. PHYSICAL EXAMINATION: GENERAL: Reveals a well-nourished man in no apparent distress. VITAL SIGNS: Vitals are stable. HEAD AND NECK EXAMINATION: Anicteric sclerae. CHEST: Bilateral air entry with rales. ABDOMEN: Soft, nontender. No hepatosplenomegaly. Bowel sounds are present. CENTRAL NERVOUS SYSTEM: Exam is nonfocal. RECTAL: Exam deferred at this time. LABORATORY DATA: Hemoglobin of 6.9, MCV 61%. Liver function tests are normal. IMPRESSION: Iron deficiency anemia with heme-positive stools. RECOMMENDATIONS: 1. Hold anticoagulation at this time. 2. Protonix 40 mg daily. 3. Transfuse to get hemoglobin above 8. 4. EGD and colonoscopy planned for tomorrow. Thank you for this referral. MD LIZZY Nair/JASE , 11:38 AM , 11:57 AM
[2017-05-16] MEDS ORDERED: LIDOCAINE HCL 1% PF 5 ML SYRINGE OTHER ONE (12:00)
[2017-05-16] MEDS ORDERED: PROPOFOL 200 MG/20 ML AMP IV ONE (12:00)
[2017-05-16] MEDS ORDERED: MAGNESIUM CITRATE SOLN 300 ML BTL PO ONE (13:15)
[2017-05-16] MEDS: DEXT 5%-NACL 0.9% 1000 ML INJ 1,000 ML IV SCH (14:26)
[2017-05-16 16:00] VITALS: BP 145/70; PULSE 66; RESP 18; TEMP 98.2; O2SAT 97
[2017-05-16 17:38] VITALS: O2SAT 97
--- NOTE | 2017-05-16 18:44 | HHI.PR ---
Subjective Remarks Patient answers yes or no with head Denies cp/sob stable vital signs Objective Vitals Vital Signs Date Time Temp Pulse Resp B/P (MAP) Pulse Ox O2 Delivery O2 Flow Rate FiO2 05/16/17 17:38 97 21 05/16/17 16:00 98.2 66 18 145/70 (95) 97 05/16/17 12:27 97.9 60 16 142/73 (96) 98 Room Air 05/16/17 12:15 60 14 126/72 (90) 98 Room Air 05/16/17 12:01 98.3 61 15 117/64 (81) 98 Room Air 05/16/17 07:22 98.3 62 18 138/65 (89) 97 05/16/17 04:00 97.3 61 18 123/68 (86) 100 05/16/17 00:00 97.5 51 16 122/60 (80) 100 05/15/17 22:25 98.1 64 17 131/64 99 05/15/17 19:08 98.0 58 13 139/65 100 05/15/17 18:53 97.9 66 14 161/74 100 I/O 05/15/17 05/15/17 05/15/17 05/16/17 05/16/17 05/16/17 06:59 14:59 22:59 06:59 14:59 22:59 Intake Total 15 ml 2552 ml 1599.1 ml 2210 ml Balance 15 ml 2552 ml 1599.1 ml 2210 ml Intake Oral 1500 ml 1500 ml 960 ml IV Total 252 ml 99.1 ml 1100 ml Packed Cells 750 ml Blood Product IV Normal Saline Flush 15 ml 50 ml Other 150 ml # Voids 1 2 3 # Bowel Movements 2 2 2 Result Diagram: 05/16/17 0613 05/16/17 0643 Imaging Last Impressions Chest X-Ray 05/15/17 0950 Signed Impressions: Service Date/Time: May 09:55 - CONCLUSION: 1. No acute cardiopulmonary disease. John Nolasco MD Objective Remarks AA nad PERRLA S1S2 RRR abdomen soft, non distended, + bowel sounds no edema in extremities Medications and IVs Current Medications Medications (Trade) Dose Ordered Sig/Yolie Route Start Time Stop Time Status Last Admin (NS Flush) 2 ml UNSCH PRN IV FLUSH 4/5/18 12:30 (NS Flush) 2 ml BID IV FLUSH 05/15/17 21:00 05/16/17 09:22 (Zofran Inj) 4 mg Q6H PRN IVP 05/15/17 12:30 (Narcan Inj) 0.4 mg UNSCH PRN IV PUSH 05/15/17 12:30 Pantoprazole Sodium 80 mg/ Sodium Chloride 100 ml @ 10 mls/hr Q10H IV 05/15/17 13:32 05/16/17 14:27 (Norvasc) 10 mg DAILY PO 05/16/17 09:00 05/16/17 09:21 (Lipitor) 40 mg HS PO 05/15/17 21:00 05/15/17 21:23 (Ferrous Sulfate) 325 mg TIDPC PO 05/15/17 18:30 05/16/17 13:30 (PROzac) 20 mg DAILY PO 05/16/17 09:00 05/16/17 09:21 (Neurontin) 300 mg HS PO 05/15/17 21:00 05/15/17 21:23 (Prinivil) 20 mg DAILY PO 05/16/17 09:00 05/16/17 09:21 (Remeron) 15 mg HS PO 05/15/17 21:00 05/15/17 21:24 (Flomax) 0.4 mg DAILY PO 05/16/17 09:00 05/16/17 09:21 (Hytrin) 2 mg HS PO 05/15/17 21:00 05/15/17 21:23 Dextrose/Sodium Chloride 1,000 ml @ 42 mls/hr [id number] IV 05/15/17 19:00 05/16/17 14:26 (D50w (Vial) Inj) 50 ml UNSCH PRN IV PUSH 05/15/17 18:15 (Glucagon Inj) 1 mg UNSCH PRN OTHER 05/15/17 18:15 (risperDAL) 2 mg Q12HR PO 05/15/17 21:00 05/16/17 09:21 (Detrol La) 2 mg DAILY PO 05/16/17 09:00 05/16/17 09:00 Lactated Ringer's 1,000 ml @ 30 mls/hr Q24H PRN IV 05/15/17 21:45 05/18/17 21:44 Sodium Chloride 500 ml @ 30 mls/hr [id number] PRN IV 05/15/17 21:45 05/18/17 21:44 (Lopressor) 25 mg COLOR BLENDER PRN PO 05/15/17 21:45 05/18/17 21:44 (Betadine 5% Antisepsis Kit) 1 applic COLOR BLENDER PRN EACH NARE 05/15/17 21:45 05/18/17 21:44 (Chlorhexidine 2% Cloth) 3 pack COLOR BLENDER PRN TOPICAL 05/15/17 21:45 05/18/17 21:44 (NovoLIN R INJ) See Protocol Table ... COLOR BLENDER PRN SQ 05/15/17 21:45 05/18/17 21:44 Miscellaneous Information ALL NURSING DEPARTME... UNSCH PRN .XX 05/16/17 11:52 05/17/17 11:51 A/P Problem List: (1) Anemia ICD Code: D64.9 - Anemia, unspecified Status: Acute (2) GI bleed ICD Code: K92.2 - Gastrointestinal hemorrhage, unspecified Status: Acute Assessment and Plan GI bleed Chronic anticoagulation on Eliquis History of gastric AV malformations Hypertension Hyperlipidemia Diabetes Peripheral neuropathy Coronary artery disease History of CVA Blindness Depression A. fib BPH Status post transfusion of 2 units of packed red blood cells. Monitor CBC. GI consulted Status post EGD which showed a class a esophagitis, erythematous gastritis. Colonoscopy with poor colon prep. Resume blood thinners if hemoglobin remains stable and GI clears for the patient to have the blood thinners resumed. DC IV fluids DVT prophylaxis with SCD. Continue Flomax and terazosin for BPH Continue amlodipine, lisinopril for hypertension. BP stable. Monitor vital signs Continue fluoxetine, mirtazapine, risperidone for depression. Resume Januvia, blood sugars slightly elevated. GI prophylaxis on pantoprazole. Discharge Planning DC pending stabilization of hemoglobin and GI clearance. Problem Qualifiers (1) Anemia: Qualified Codes: D64.9 - Anemia, unspecified (2) GI bleed: Qualified Codes: K92.2 - Gastrointestinal hemorrhage, unspecified Clinton Reyes MD May 16, 2017 18:44
[2017-05-16 20:00] VITALS: BP 145/67; PULSE 71; RESP 16; TEMP 97.9; O2SAT 99
[2017-05-16] MEDS: TERAZOSIN HCL 1 MG CAP PO SCH (20:11)
[2017-05-16] MEDS: GABAPENTIN 300 MG CAP PO SCH (20:11)
[2017-05-16] MEDS: ATORVASTATIN 40 MG TAB PO SCH (20:11)
[2017-05-16] MEDS: MIRTAZAPINE 15 MG TAB PO SCH (20:11)
[2017-05-17] VITALS: BP 161/76; PULSE 83; RESP 18; TEMP 97.8; O2SAT 97
[2017-05-17] MEDS: PANTOPRAZOLE INJ 80 MG in SODIUM CHLORIDE 0.9% INJ 100 ML IV SCH ×4 (00:09→21:29)
[2017-05-17 08:00] VITALS: BP 156/73; PULSE 56; RESP 16; TEMP 98; O2SAT 97
[2017-05-17] MEDS: SODIUM CHLORIDE 0.9% FLUSH 10 ML FLUSH IV FLUSH SCH ×2 (09:00→21:32)
[2017-05-17] MEDS: TOLTERODINE TARTRATE 2 MG CAP LA PO SCH (09:00)
--- NOTE | 2017-05-17 09:13 | HHI.PR ---
Subjective Remarks This is a pleasant 66 y/o Male from retirement, having Melenic stools, guaiac positive stool in ER, He is on Eliquis at home 05/17: Seen in his bedroom, does not want to answer my questions. discussed with nurse and on MDR, his Hemoglobin improved to 8.9 after two units of PRBCs. No nausea, vomit or diarrhea. Objective Vital Signs Date Time Temp Pulse Resp B/P (MAP) Pulse Ox O2 Delivery O2 Flow Rate FiO2 05/17/17 00:00 97.8 83 18 161/76 (104) 97 05/16/17 20:00 97.9 71 16 145/67 (93) 99 05/16/17 17:38 97 21 05/16/17 16:00 98.2 66 18 145/70 (95) 97 05/16/17 12:27 97.9 60 16 142/73 (96) 98 Room Air 05/16/17 12:15 60 14 126/72 (90) 98 Room Air 05/16/17 12:01 98.3 61 15 117/64 (81) 98 Room Air I/O 05/16/17 05/16/17 05/16/17 05/17/17 05/17/17 05/17/17 07:00 15:00 23:00 07:00 15:00 23:00 Intake Total 1599.1 ml 2210 ml 791 ml 352.6 ml Balance 1599.1 ml 2210 ml 791 ml 352.6 ml Intake Oral 1500 ml 960 ml 480 ml 240 ml IV Total 99.1 ml 1100 ml 311 ml 112.6 ml Other 150 ml # Voids 2 3 2 2 # Bowel Movements 2 2 2 2 Result Diagram: 05/16/17 0613 05/16/17 0643 Imaging Last Impressions Chest X-Ray 05/15/17 0950 Signed Impressions: Service Date/Time: May 09:55 - CONCLUSION: 1. No acute cardiopulmonary disease. John Nolasco MD Procedures EGD 05/16/17 found LA class A esophagitis, biopsy performed, erythematous gastritis, recommended to continue PPIs, inpatient management. EGD in two years. Other Results Laboratory Tests Test 05/15/17 10:24 05/15/17 13:20 05/16/17 06:13 05/16/17 06:43 Prothrombin Time 10.5 SEC Prothromb Time International Ratio 1.0 RATIO Activated Partial Thromboplast Time 27.1 SEC Blood Urea Nitrogen 26 MG/DL 11 MG/DL Creatinine 0.89 MG/DL 0.59 MG/DL Random Glucose 109 MG/DL 95 MG/DL Total Protein 6.9 GM/DL Albumin 2.6 GM/DL Calcium Level 8.1 MG/DL 7.6 MG/DL Alkaline Phosphatase 126 U/L Aspartate Amino Transf (AST/SGOT) 12 U/L Alanine Aminotransferase (ALT/SGPT) 12 U/L Total Bilirubin 0.2 MG/DL Sodium Level 143 MEQ/L 145 MEQ/L Potassium Level 3.6 MEQ/L 3.5 MEQ/L Chloride Level 110 MEQ/L 111 MEQ/L Carbon Dioxide Level 23.9 MEQ/L 27.7 MEQ/L Troponin I LESS THAN 0.02 NG/ML Lipase 121 U/L Thyroid Stimulating Hormone 3rd Gen 1.360 uIU/ML Urine Color YELLOW Urine Turbidity CLEAR Urine pH 5.5 Urine Specific [place] 1.017 Urine Protein NEG mg/dL Urine Glucose (UA) NEG mg/dL Urine Ketones NEG mg/dL Urine Occult Blood NEG Urine Nitrite NEG Urine Bilirubin NEG Urine Urobilinogen LESS THAN 2.0 MG/DL Urine Leukocyte Esterase NEG Urine RBC LESS THAN 1 /hpf Urine WBC 1 /hpf Urine Hyaline Casts 3 /lpf Urine Mucus FEW /lpf Microscopic Urinalysis Comment CULT NOT INDICATED White Blood Count 6.4 TH/MM3 Red Blood Count 4.19 MIL/MM3 Hemoglobin 8.7 GM/DL Hematocrit 27.3 % Mean Corpuscular Volume 65.1 FL Mean Corpuscular Hemoglobin 20.9 PG Mean Corpuscular Hemoglobin Concent 32.1 % Red Cell Distribution Width 24.9 % Platelet Count 215 TH/MM3 Mean Platelet Volume 7.9 FL Neutrophils (%) (Auto) 60.1 % Lymphocytes (%) (Auto) 25.3 % Monocytes (%) (Auto) 10.2 % Eosinophils (%) (Auto) 3.7 % Basophils (%) (Auto) 0.7 % Neutrophils # (Auto) 3.8 TH/MM3 Lymphocytes # (Auto) 1.6 TH/MM3 Monocytes # (Auto) 0.7 TH/MM3 Eosinophils # (Auto) 0.2 TH/MM3 Basophils # (Auto) 0.0 TH/MM3 CBC Comment DIFF FINAL Differential Comment Anion Gap 6 MEQ/L Estimat Glomerular Filtration Rate 138 ML/MIN Objective Remarks AA nad PERRLA S1S2 RRR abdomen soft, non distended, + bowel sounds no edema in extremities Medications and IVs Current Medications Medications (Trade) Dose Ordered Sig/Yolie Route Start Time Stop Time Status Last Admin (NS Flush) 2 ml UNSCH PRN IV FLUSH 05/15/17 12:30 (NS Flush) 2 ml BID IV FLUSH 05/15/17 21:00 05/16/17 20:12 (Zofran Inj) 4 mg Q6H PRN IVP 05/15/17 12:30 (Narcan Inj) 0.4 mg UNSCH PRN IV PUSH 05/15/17 12:30 Pantoprazole Sodium 80 mg/ Sodium Chloride 100 ml @ 10 mls/hr Q10H IV 05/15/17 13:32 05/17/17 00:09 (Norvasc) 10 mg DAILY PO 05/16/17 09:00 05/16/17 09:21 (Lipitor) 40 mg HS PO 05/15/17 21:00 05/16/17 20:11 (Ferrous Sulfate) 325 mg TIDPC PO 05/15/17 18:30 05/16/17 18:44 (PROzac) 20 mg DAILY PO 05/16/17 09:00 05/16/17 09:21 (Neurontin) 300 mg HS PO 05/15/17 21:00 05/16/17 20:11 (Prinivil) 20 mg DAILY PO 05/16/17 09:00 05/16/17 09:21 (Remeron) 15 mg HS PO 05/15/17 21:00 05/16/17 20:11 (Flomax) 0.4 mg DAILY PO 05/16/17 09:00 05/16/17 09:21 (Hytrin) 2 mg HS PO 05/15/17 21:00 05/16/17 20:11 (D50w (Vial) Inj) 50 ml UNSCH PRN IV PUSH 05/15/17 18:15 (Glucagon Inj) 1 mg UNSCH PRN OTHER 05/15/17 18:15 (risperDAL) 2 mg Q12HR PO 05/15/17 21:00 05/16/17 20:11 (Detrol La) 2 mg DAILY PO 05/16/17 09:00 05/16/17 09:00 Lactated Ringer's 1,000 ml @ 30 mls/hr Q24H PRN IV 05/15/17 21:45 05/18/17 21:44 Sodium Chloride 500 ml @ 30 mls/hr [id number] PRN IV 05/15/17 21:45 05/18/17 21:44 (Lopressor) 25 mg FULL ROLL INSPECTOR PRN PO 05/15/17 21:45 05/18/17 21:44 (Betadine 5% Antisepsis Kit) 1 applic FULL ROLL INSPECTOR PRN EACH NARE 05/15/17 21:45 05/18/17 21:44 (Chlorhexidine 2% Cloth) 3 pack FULL ROLL INSPECTOR PRN TOPICAL 05/15/17 21:45 05/18/17 21:44 (NovoLIN R INJ) See Protocol Table ... FULL ROLL INSPECTOR PRN SQ 05/15/17 21:45 05/18/17 21:44 Miscellaneous Information ALL NURSING DEPARTME... UNSCH PRN .XX 05/16/17 11:52 05/17/17 11:51 (Januvia) 50 mg DAILY PO 05/16/17 19:15 05/16/17 20:11 A/P Assessment and Plan (1) Anemia ICD Code: D64.9 - Anemia, unspecified Status: Acute (2) GI bleed ICD Code: K92.2 - Gastrointestinal hemorrhage, unspecified Status: Acute 1. GI bleed EGD 05/16/17 found LA class A esophagitis, biopsy performed, erythematous gastritis, recommended to continue PPIs, inpatient management. EGD in two years. Colonoscopy with poor colon prep 2. Acute blood loss anemia on chronic iron deficiency anemia status post blood transfusion of 2 units of PRBCs. 3. History of gastric AV malformations 4. Hypertension controlled on Amlodipine, Lisinopril, 5. Hyperlipidemia 6. Diabetes II 7. Peripheral neuropathy 8. Coronary artery disease 9. History of CVA 10. Blindness 11. Depression on Fluoxetine, Mirtazapine, Risperidone 12. A. fib on chronic Eliquis awaiting for GI specialist to re start management. with eliquis. 13. BPH on Flomax and terazosin DVT prophylaxis with SCD. GI prophylaxis on pantoprazole. Discharge Planning Awaiting clearance by GI specialist. See Schwartz MD May 17, 2017 09:13
[2017-05-17] MEDS: LISINOPRIL 20 MG TAB PO SCH (09:31)
[2017-05-17] MEDS: TAMSULOSIN HCL 0.4 MG CAP PO SCH (09:32)
[2017-05-17] MEDS: risperiDONE 1 MG TAB PO SCH ×2 (09:32→21:31)
[2017-05-17] MEDS: FLUoxetine HCL 20 MG CAP PO SCH (09:32)
[2017-05-17] MEDS: FERROUS SULFATE 325 MG (65 MG ELEMENTAL IRON) TAB PO SCH ×3 (09:32→17:44)
[2017-05-17 12:00] VITALS: BP 144/64; PULSE 60; RESP 18; TEMP 98.2; O2SAT 95
[2017-05-17 20:00] VITALS: BP 129/60; PULSE 81; RESP 18; TEMP 98.3; O2SAT 97
[2017-05-17] MEDS: GABAPENTIN 300 MG CAP PO SCH (21:31)
[2017-05-17] MEDS: INSULIN ASPART SUPPLEMENTAL SCALE SQ SCH (21:31)
[2017-05-17] MEDS: ATORVASTATIN 40 MG TAB PO SCH (21:32)
[2017-05-17] MEDS: TERAZOSIN HCL 1 MG CAP PO SCH (21:32)
[2017-05-17] MEDS: MIRTAZAPINE 15 MG TAB PO SCH (21:32)
[2017-05-18] VITALS (8 sets, daily range): BP systolic 131–169; BP diastolic 62–75; PULSE 60–128; RESP 18–20; TEMP 96.9–98.6; O2SAT 96–100
[2017-05-18 07:29] LABS: HEMATOCRIT 33.7 % (39.0-51.0); HEMOGLOBIN 10.5 GM/DL (13.0-17.0)
[2017-05-18] MEDS: INSULIN ASPART SUPPLEMENTAL SCALE SQ SCH ×4 (08:00→21:31)
[2017-05-18] MEDS: TAMSULOSIN HCL 0.4 MG CAP PO SCH (09:00)
[2017-05-18] MEDS: SODIUM CHLORIDE 0.9% FLUSH 10 ML FLUSH IV FLUSH SCH ×2 (09:00→21:00)
[2017-05-18] MEDS: TOLTERODINE TARTRATE 2 MG CAP LA PO SCH (09:00)
[2017-05-18] MEDS: FLUoxetine HCL 20 MG CAP PO SCH (10:24)
[2017-05-18] MEDS: LISINOPRIL 20 MG TAB PO SCH (10:24)
[2017-05-18] MEDS: risperiDONE 1 MG TAB PO SCH ×2 (10:24→21:31)
[2017-05-18] MEDS: FERROUS SULFATE 325 MG (65 MG ELEMENTAL IRON) TAB PO SCH ×3 (10:24→18:20)
[2017-05-18] MEDS: PANTOPRAZOLE INJ 80 MG in SODIUM CHLORIDE 0.9% INJ 100 ML IV SCH ×3 (10:28→22:53)
--- NOTE | 2017-05-18 12:11 | HHI.GIFU ---
GI Follow-up Note Consult Follow-up Subjective: Patient laying in bed comfortably, no new complaints. No bleeding Objective: PHYSICAL EXAMINATION: Vitals signs stable No fever HEENT: Pupils round and reactive to light; normocephalic; atraumatic; no jaundice. Throat is clear. NECK: Neck is supple, no JVD, no lymphadenopathy. CHEST: Chest is clear to auscultation and percussion. CARDIAC: Regular rate and rhythm with no murmur gallop or rubs. ABDOMEN: Soft, nondistended, nontender; no hepatosplenomegaly; bowel sounds are present in all four quadrants. EXTREMITIES: No clubbing, cyanosis, or edema. SKIN: Normal; no rash; no jaundice. DIRECTOR SPEECH AND HEARING: No focal deficits; alert and oriented times three. Available Data (labs, X- Rays, Procedues) : Last Impressions Chest X-Ray 05/15/17 0950 Signed Impressions: Service Date/Time: May 09:55 - CONCLUSION: 1. No acute cardiopulmonary disease. John Nolasco MD Laboratory Tests Test 05/18/17 06:59 Hemoglobin 10.5 GM/DL Hematocrit 33.7 % Allergies Coded Allergies Type Severity Reaction Last Updated Verified celecoxib Allergy Severe Hives 05/15/17 No acyclovir Allergy Unknown 05/15/17 Yes Active Scripts Medications Dose Route/Sig Max Daily Dose Days Date Category Omeprazole 20 Mg Tab 20 Mg PO DAILY 05/15/17 Reported Milk of Magnesia Liq (Magnesium Hydroxide) 400 Mg/5 Ml Susp 30 Ml PO DAILY PRN 05/15/17 Reported Enema Disposable (Sodium Phosphates) 19 Gram-7 Gram/118 Ml [place] 1 Applic [place] DAILY PRN 05/15/17 Reported Dulcolax Supp (Bisacodyl) 10 Mg Supp 10 Mg RECTAL DAILY PRN 05/15/17 Reported Risperidone 2 Mg Tab 2 Mg PO Q12HR 05/15/17 Reported Fluoxetine (Fluoxetine HCl) 20 Mg Tab 20 Mg PO DAILY 05/15/17 Reported Oxybutynin ER 24 HR (Oxybutynin Chloride) 5 Mg Tab 5 Mg PO DAILY 05/15/17 Reported Metformin (Metformin HCl) 500 Mg Tab 500 Mg PO BID 05/15/17 Reported Atorvastatin (Atorvastatin Calcium) 40 Mg Tab 40 Mg PO HS 05/15/17 Reported Eliquis (Apixaban) 2.5 Mg Tab 2.5 Mg PO BID 01/01/17 Rx Terazosin (Terazosin HCl) 2 Mg Cap 2 Mg PO HS 12/30/16 Reported Tamsulosin (Tamsulosin HCl) 0.4 Mg Cap 0.4 Mg PO DAILY 12/30/16 Reported Remeron (Mirtazapine) 15 Mg Tab 15 Mg PO HS 12/30/16 Reported Lisinopril 20 Mg Tab 20 Mg PO DAILY 12/30/16 Reported Januvia (Sitagliptin Phosphate) 50 Mg Tab 50 Mg PO DAILY 12/30/16 Reported Ferrous Sulfate 325 Mg (65 Mg Iron) Tablet 325 Mg PO TIDPC 12/30/16 Reported Gabapentin 300 Mg Cap 300 Mg PO HS 06/04/16 Reported Vitamin B-12 (Cyanocobalamin) 1,000 Mcg Tab 1,000 Mcg PO DAILY 06/04/16 Reported Amlodipine (Amlodipine Besylate) 10 Mg Tab 10 Mg PO DAILY 06/04/16 Reported Ventolin Hfa 18 GM Inh (Albuterol Sulfate) 90 Mcg/Act Aer 2 Puff INH Q6H PRN 06/04/16 Reported ASSESSMENT/PLAN: Seen and examined, No bleeding reported. Colonoscopy planned for tomorrow. Mag citrate prep. Discussed with nurse. Anticoagulation on hold, can be resumed after colonoscopy tomorrow. It was a pleasure seeing Arnulfo Bell. Thank you for this consult. Entered by: Kunal Calvert MD May 18, 2017 12:10
[2017-05-18] MEDS ORDERED: MAGNESIUM CITRATE SOLN 300 ML BTL PO ONE (12:15)
--- NOTE | 2017-05-18 16:35 | HHI.PR ---
Subjective Remarks This is a pleasant 66 y/o Male from senior living, having Melenic stools, guaiac positive stool in ER, He is on Eliquis at home 05/17: Seen in his bedroom, does not want to answer my questions. discussed with nurse and on MDR, his Hemoglobin improved to 8.9 after two units of PRBCs. 05/18: Seen in his bedroom, No complaint, does speak only few words, does not want to answer most of my questions, no bleeding, Colonoscopy planned for tomorrow 05/19/17, no nausea, vomit or diarrhea. Objective Vital Signs Date Time Temp Pulse Resp B/P (MAP) Pulse Ox O2 Delivery O2 Flow Rate FiO2 05/18/17 12:00 98.3 81 18 157/67 (97) 98 05/18/17 08:00 98.5 64 18 136/65 (88) 97 05/18/17 04:00 97.6 71 18 169/72 (104) 100 05/18/17 00:00 98.6 70 20 139/63 (88) 96 05/17/17 20:00 98.3 81 18 129/60 (83) 97 I/O 05/17/17 05/17/17 05/17/17 05/18/17 05/18/17 05/18/17 06:59 14:59 22:59 06:59 14:59 22:59 Intake Total 352.6 ml 40 ml 162 ml 434 ml Balance 352.6 ml 40 ml 162 ml 434 ml Intake Oral 240 ml 240 ml IV Total 112.6 ml 40 ml 162 ml 194 ml # Voids 2 2 # Bowel Movements 2 Result Diagram: 05/18/17 0659 05/16/17 0643 Imaging Last Impressions Chest X-Ray 05/15/17 0950 Signed Impressions: Service Date/Time: May 09:55 - CONCLUSION: 1. No acute cardiopulmonary disease. Jhon Nolasco MD Procedures EGD 05/16/17 found LA class A esophagitis, biopsy performed, erythematous gastritis, recommended to continue PPIs, inpatient management. EGD in two years. Other Results Laboratory Tests Test 05/15/17 10:24 05/15/17 13:20 05/16/17 06:13 05/16/17 06:43 Prothrombin Time 10.5 SEC Prothromb Time International Ratio 1.0 RATIO Activated Partial Thromboplast Time 27.1 SEC Blood Urea Nitrogen 26 MG/DL 11 MG/DL Creatinine 0.89 MG/DL 0.59 MG/DL Random Glucose 109 MG/DL 95 MG/DL Total Protein 6.9 GM/DL Albumin 2.6 GM/DL Calcium Level 8.1 MG/DL 7.6 MG/DL Alkaline Phosphatase 126 U/L Aspartate Amino Transf (AST/SGOT) 12 U/L Alanine Aminotransferase (ALT/SGPT) 12 U/L Total Bilirubin 0.2 MG/DL Sodium Level 143 MEQ/L 145 MEQ/L Potassium Level 3.6 MEQ/L 3.5 MEQ/L Chloride Level 110 MEQ/L 111 MEQ/L Carbon Dioxide Level 23.9 MEQ/L 27.7 MEQ/L Troponin I LESS THAN 0.02 NG/ML Lipase 121 U/L Thyroid Stimulating Hormone 3rd Gen 1.360 uIU/ML Urine Color YELLOW Urine Turbidity CLEAR Urine pH 5.5 Urine Specific [place] 1.017 Urine Protein NEG mg/dL Urine Glucose (UA) NEG mg/dL Urine Ketones NEG mg/dL Urine Occult Blood NEG Urine Nitrite NEG Urine Bilirubin NEG Urine Urobilinogen LESS THAN 2.0 MG/DL Urine Leukocyte Esterase NEG Urine RBC LESS THAN 1 /hpf Urine WBC 1 /hpf Urine Hyaline Casts 3 /lpf Urine Mucus FEW /lpf Microscopic Urinalysis Comment CULT NOT INDICATED White Blood Count 6.4 TH/MM3 Red Blood Count 4.19 MIL/MM3 Mean Corpuscular Volume 65.1 FL Mean Corpuscular Hemoglobin 20.9 PG Mean Corpuscular Hemoglobin Concent 32.1 % Red Cell Distribution Width 24.9 % Platelet Count 215 TH/MM3 Mean Platelet Volume 7.9 FL Neutrophils (%) (Auto) 60.1 % Lymphocytes (%) (Auto) 25.3 % Monocytes (%) (Auto) 10.2 % Eosinophils (%) (Auto) 3.7 % Basophils (%) (Auto) 0.7 % Neutrophils # (Auto) 3.8 TH/MM3 Lymphocytes # (Auto) 1.6 TH/MM3 Monocytes # (Auto) 0.7 TH/MM3 Eosinophils # (Auto) 0.2 TH/MM3 Basophils # (Auto) 0.0 TH/MM3 CBC Comment DIFF FINAL Differential Comment Anion Gap 6 MEQ/L Estimat Glomerular Filtration Rate 138 ML/MIN Test 05/18/17 06:59 Hemoglobin 10.5 GM/DL Hematocrit 33.7 % Objective Remarks AA nad PERRLA S1S2 RRR abdomen soft, non distended, + bowel sounds no edema in extremities Medications and IVs Current Medications Medications (Trade) Dose Ordered Sig/Yolie Route Start Time Stop Time Status Last Admin (NS Flush) 2 ml UNSCH PRN IV FLUSH 05/15/17 12:30 (NS Flush) 2 ml BID IV FLUSH 05/15/17 21:00 05/17/17 21:32 (Zofran Inj) 4 mg Q6H PRN IVP 05/15/17 12:30 (Narcan Inj) 0.4 mg UNSCH PRN IV PUSH 05/15/17 12:30 (Norvasc) 10 mg DAILY PO 05/16/17 09:00 05/18/17 10:24 (Lipitor) 40 mg HS PO 05/15/17 21:00 05/17/17 21:32 (Ferrous Sulfate) 325 mg TIDPC PO 05/15/17 18:30 05/18/17 13:38 (PROzac) 20 mg DAILY PO 05/16/17 09:00 05/18/17 10:24 (Neurontin) 300 mg HS PO 05/15/17 21:00 05/17/17 21:31 (Prinivil) 20 mg DAILY PO 05/16/17 09:00 05/18/17 10:24 (Remeron) 15 mg HS PO 05/15/17 21:00 05/17/17 21:32 (Flomax) 0.4 mg DAILY PO 05/16/17 09:00 05/18/17 09:00 (Hytrin) 2 mg HS PO 05/15/17 21:00 05/17/17 21:32 (D50w (Vial) Inj) 50 ml UNSCH PRN IV PUSH 05/15/17 18:15 (Glucagon Inj) 1 mg UNSCH PRN OTHER 05/15/17 18:15 (risperDAL) 2 mg Q12HR PO 05/15/17 21:00 05/18/17 10:24 (Detrol La) 2 mg DAILY PO 05/16/17 09:00 05/18/17 09:00 Lactated Ringer's 1,000 ml @ 30 mls/hr Q24H PRN IV 4/5/18 21:45 05/18/17 21:44 Sodium Chloride 500 ml @ 30 mls/hr [id number] PRN IV 05/15/17 21:45 05/18/17 21:44 (Lopressor) 25 mg GARMENT INSPECTOR PRN PO 05/15/17 21:45 05/18/17 21:44 (Betadine 5% Antisepsis Kit) 1 applic GARMENT INSPECTOR PRN EACH NARE 05/15/17 21:45 05/18/17 21:44 (Chlorhexidine 2% Cloth) 3 pack GARMENT INSPECTOR PRN TOPICAL 05/15/17 21:45 05/18/17 21:44 (NovoLIN R INJ) See Protocol Table ... GARMENT INSPECTOR PRN SQ 05/15/17 21:45 05/18/17 21:44 (NovoLOG SUPPLEMENTAL SCALE) 1 ACHS SLIDING SCALE SQ 05/17/17 21:00 05/18/17 13:48 Pantoprazole Sodium 80 mg/ Sodium Chloride 100 ml @ 10 mls/hr Q10H IV 05/17/17 22:00 05/18/17 10:28 A/P Assessment and Plan (1) Anemia ICD Code: D64.9 - Anemia, unspecified Status: Acute (2) GI bleed ICD Code: K92.2 - Gastrointestinal hemorrhage, unspecified Status: Acute 1. GI bleed EGD 05/16/17 found LA class A esophagitis, biopsy performed, erythematous gastritis, recommended to continue PPIs, inpatient management. EGD in two years. Colonoscopy with poor colon prep has scheduled Colonoscopy for tomorrow 05/19/17. 2. Acute blood loss anemia on chronic iron deficiency anemia status post blood transfusion of 2 units of PRBCs. Hemoglobin 8.5 today. 3. History of gastric AV malformations 4. Hypertension controlled on Amlodipine, Lisinopril. 5. Hyperlipidemia continue Home medicines. 6. Diabetes II uncontrolled. increased sliding scale to Medium sliding scale and giving scheduled pre meal 5 units. the patient will be NPO at midnight for procedure tomorrow. 7. Peripheral neuropathy 8. Coronary artery disease 9. History of CVA 10. Blindness 11. Depression on Fluoxetine, Mirtazapine, Risperidone 12. A. fib on chronic Eliquis no on sinus rhythm. awaiting for GI specialist to re start management. with eliquis. 13. BPH on Flomax and terazosin DVT prophylaxis with SCD. GI prophylaxis on pantoprazole. Discharge Planning Awaiting clearance by GI specialist. Discharge back to [facility]. See Schwartz MD May 18, 2017 16:35
[2017-05-18] MEDS: INSULIN ASPART 1,000 UNITS/10 ML VIAL SQ SCH (18:20)
[2017-05-18] MEDS: SODIUM CHLOR 0.9% 1000 ML INJ 1,000 ML IV SCH (18:26)
[2017-05-18] MEDS: TERAZOSIN HCL 1 MG CAP PO SCH (21:30)
[2017-05-18] MEDS: GABAPENTIN 300 MG CAP PO SCH (21:30)
[2017-05-18] MEDS: MIRTAZAPINE 15 MG TAB PO SCH (21:31)
[2017-05-18] MEDS: ATORVASTATIN 40 MG TAB PO SCH (21:31)
[2017-05-18 22:16] LABS: CHOLESTEROL 71 MG/DL (120-200); TRIGLYCERIDES 61 MG/DL (42-150)
[2017-05-18 22:18] LABS: CHOLESTEROL/ HDL RATIO 1.73 RATIO; HDL CHOLESTEROL 40.9 MG/DL (40.0-60.0); LDL CHOLESTEROL 18 MG/DL (0-99)
[2017-05-18] MEDS ORDERED: METOPROLOL TARTRATE 25 MG TAB PO ONE (22:30)
[2017-05-19] VITALS (7 sets, daily range): BP systolic 105–167; BP diastolic 62–77; PULSE 75–112; RESP 18; TEMP 97.8–100; O2SAT 96–98
[2017-05-19] MEDS: SODIUM CHLOR 0.9% 1000 ML INJ 1,000 ML IV SCH ×2 (04:55→17:33)
[2017-05-19] MEDS: INSULIN ASPART SUPPLEMENTAL SCALE SQ SCH ×4 (08:00→21:10)
[2017-05-19] MEDS: INSULIN ASPART 1,000 UNITS/10 ML VIAL SQ SCH ×3 (08:00→17:32)
[2017-05-19 08:28] LABS: BICARBONATE 25.8 MEQ/L (21.0-32.0); CALCIUM 7.3 MG/DL (8.5-10.1); CREATININE 0.79 MG/DL (0.60-1.30)
[2017-05-19] MEDS: risperiDONE 1 MG TAB PO SCH ×2 (08:48→21:10)
[2017-05-19] MEDS: TAMSULOSIN HCL 0.4 MG CAP PO SCH (08:48)
[2017-05-19] MEDS: FERROUS SULFATE 325 MG (65 MG ELEMENTAL IRON) TAB PO SCH ×3 (08:48→17:33)
[2017-05-19] MEDS: FLUoxetine HCL 20 MG CAP PO SCH (08:48)
[2017-05-19] MEDS: LISINOPRIL 20 MG TAB PO SCH (08:48)
[2017-05-19] MEDS: SODIUM CHLORIDE 0.9% FLUSH 10 ML FLUSH IV FLUSH SCH ×2 (08:49→21:00)
[2017-05-19] MEDS: TOLTERODINE TARTRATE 2 MG CAP LA PO SCH (08:49)
[2017-05-19 08:51] LABS: CALCIUM-PROTEIN CORRECTED 7.8 MG/DL (8.5-10.1); TOTAL PROTEIN 6.2 GM/DL (6.4-8.2)
--- NOTE | 2017-05-19 11:33 | HHI.PR ---
Subjective Remarks Pt seen and examined this morning. AFVSS. No acute events overnight. Pt only speaks a few words and doesn't open his eyes. He doesn't answer my questions except when I ask him the year he replies "1980." He is going for colonoscopy today. Objective Vital Signs Date Time Temp Pulse Resp B/P (MAP) Pulse Ox O2 Delivery O2 Flow Rate FiO2 05/19/17 08:00 97.8 110 18 167/77 (107) 96 05/19/17 04:00 98.1 75 18 105/71 (82) 97 05/18/17 23:53 83 05/18/17 23:44 97.2 60 18 137/62 (87) 98 05/18/17 20:46 96.9 128 18 148/75 (99) 99 05/18/17 19:48 21 05/18/17 16:00 97.1 126 20 131/70 (90) 98 05/18/17 12:00 98.3 81 18 157/67 (97) 98 I/O 05/18/17 05/18/17 05/18/17 05/19/17 05/19/17 05/19/17 07:00 15:00 23:00 07:00 15:00 23:00 Intake Total 434 ml 960 ml 1290 ml Balance 434 ml 960 ml 1290 ml Intake Oral 240 ml 960 ml 0 ml IV Total 194 ml 1290 ml # Voids 2 3 2 # Bowel Movements 1 3 Result Diagram: 05/18/17 0659 05/19/17 0718 Procedures EGD 05/16/17 revealed esophagitis and gastritis A/P Assessment and Plan 66 YOWM with A fib, schizophrenia, history of gastric AVM, HTN, HLD, DM, and CAD admitted on 05/15 for black tarry stools and acute blood loss anemia. 1. GI bleed - S/P 2 units in the ED - Repeat H&H's remain stable - GI consulted, appreciate intervention * s/p EGD 05/15 showing esophagitis and gastritis, biopsies taken * Colonoscopy today - Continue Protonix drip - Monitor H&H 2. Acute blood loss anemia - s/p 2 units PRBCs - Hb 6.9 on admission, up to 10.5 this morning - Continue to monitor 3. Atrial fibrillation - Intermittently in RVR, not on any rate control - Start metoprolol 12.5 mg BID and can titrate - Holding home Equilis for now - Per GI, anticoagulation can be resumed after colonoscopy 4. HTN - Continue Amlodipine, terazosin, and Lisinopril 5. DM - Novolog 5 units TIDAC 6. Psych: depression, schizophrenia - Continue home fluoxetine, mirtazapine, and risperidone 7. BPH - Continue home Flomax 8. HLD - Continue statin DVT prophylaxis: holding chemical anticoagulation for now given GI bleed but can be restarted after colonoscopy Discharge Planning Can be discharged back to SNF once cleared by GI, possibly later today after colonoscopy Marilee Robin MD May 19, 2017 11:33
[2017-05-19] MEDS ORDERED: PILL SPLITTER OTHER PRN (11:45)
[2017-05-19] MEDS ORDERED: PROPOFOL 200 MG/20 ML AMP IV ONE (12:00)
[2017-05-19] MEDS ORDERED: LIDOCAINE HCL 1% PF 5 ML SYRINGE OTHER ONE (12:00)
--- NOTE | 2017-05-19 13:10 | PD.PROCEDR ---
GI Procedure PROCEDURE PERFORMED Incomplete colonoscopy INDICATION FOR PROCEDURE Anemia PROCEDURE: The procedure, risks and benefits were discussed with Mr. Bell and informed consent was obtained. Anesthesia sedated him with Diprivan. He was placed in the left lateral decubitus position. Colonoscopy: The Pentax videoscope was introduced through the rectum and advanced to sigmoid. Retroflexion was performed in the rectum. Colonic prep was poor ESTIMATED BLOOD LOSS: None SPECIMENS REMOVED: None COMPLICATIONS: None IMPRESSION: Incomplete colonoscopy up to sigmoid, patient has significant amount of stool with poor prep unable to continue the procedure PLAN: Repeat colonoscopy in Fernanda Fox MD May 19, 2017 13:10
[2017-05-19] MEDS ORDERED: PEG (High)/E-LYTE SOLN 4000 ML BTL PO ONE (15:00)
[2017-05-19 15:03] LABS: AUTOMATED NEUTROPHIL # 10.1 TH/MM3 (1.8-7.7); BASOPHIL % 0.2 % (0.0-2.0); EOSINOPHIL % 0.1 % (0.0-4.0); HEMATOCRIT 29.4 % (39.0-51.0); HEMOGLOBIN 8.9 GM/DL (13.0-17.0); LYMPH % 9.4 % (9.0-44.0); LYMPHOCYTE # 1.2 TH/MM3 (1.0-4.8); MEAN CELL VOLUME 67.3 FL (80.0-100.0); MEAN CORPUSCULAR HEMOGLOBIN 20.4 PG (27.0-34.0); MEAN CORPUSCULAR HGB CONC 30.3 % (32.0-36.0); MEAN PLATELET VOLUME 8.5 FL (7.0-11.0); MONOCYTE # 1.1 TH/MM3 (0-0.9); NEUT % 81.3 % (16.0-70.0); PLATELET COUNT 222 TH/MM3 (150-450); RED BLOOD COUNT 4.37 MIL/MM3 (4.50-5.90); RED CELL DISTRIBUTION WIDTH 27.3 % (11.6-17.2); WHITE BLOOD COUNT 12.4 TH/MM3 (4.0-11.0)
[2017-05-19] MEDS: PANTOPRAZOLE INJ 80 MG in SODIUM CHLORIDE 0.9% INJ 100 ML IV SCH (15:37)
[2017-05-19 17:11] LABS: OVALOCYTES 1+ (NORMAL)
[2017-05-19 17:12] LABS: KERATOCYTES OCC (NORMAL)
[2017-05-19] MEDS: METOPROLOL TARTRATE 25 MG TAB PO SCH (21:10)
[2017-05-19] MEDS: TERAZOSIN HCL 1 MG CAP PO SCH (21:10)
[2017-05-19] MEDS: MIRTAZAPINE 15 MG TAB PO SCH (21:10)
[2017-05-19] MEDS: ATORVASTATIN 40 MG TAB PO SCH (21:10)
[2017-05-19] MEDS: GABAPENTIN 300 MG CAP PO SCH (21:10)
[2017-05-19] MEDS ORDERED: LACTATED RINGER'S 1000 ML IV PRN (23:00)
[2017-05-19] MEDS ORDERED: CHLORHEXIDINE GLUCONATE 2 % 1 PACK (2 CLOTHS) TOPICAL PRN (23:00)
[2017-05-19] MEDS ORDERED: SODIUM CHLORID 0.9% 500 ML IV PRN (23:00)
[2017-05-19] MEDS ORDERED: POVIDONE IODINE 5% (ANTISEPSIS KIT) 4 APPLICATIONS EACH NARE PRN (23:00)
[2017-05-20] VITALS (7 sets, daily range): BP systolic 120–175; BP diastolic 61–77; PULSE 70–104; RESP 16–18; TEMP 98.1–100.7; O2SAT 94–100
[2017-05-20] MEDS: PANTOPRAZOLE INJ 80 MG in SODIUM CHLORIDE 0.9% INJ 100 ML IV SCH ×3 (00:59→21:01)
[2017-05-20] MEDS: INSULIN ASPART 1,000 UNITS/10 ML VIAL SQ SCH ×3 (08:00→17:00)
[2017-05-20] MEDS: INSULIN ASPART SUPPLEMENTAL SCALE SQ SCH ×4 (08:00→21:00)
[2017-05-20] MEDS: FLUoxetine HCL 20 MG CAP PO SCH (09:00)
[2017-05-20] MEDS: LISINOPRIL 20 MG TAB PO SCH (09:00)
[2017-05-20] MEDS: TAMSULOSIN HCL 0.4 MG CAP PO SCH (09:00)
[2017-05-20] MEDS: TOLTERODINE TARTRATE 2 MG CAP LA PO SCH (09:00)
[2017-05-20] MEDS: METOPROLOL TARTRATE 25 MG TAB PO SCH ×2 (09:00→20:59)
[2017-05-20] MEDS: risperiDONE 1 MG TAB PO SCH ×2 (09:00→20:58)
[2017-05-20] MEDS: SODIUM CHLORIDE 0.9% FLUSH 10 ML FLUSH IV FLUSH SCH ×2 (09:00→21:00)
--- NOTE | 2017-05-20 09:07 | HHI.PR ---
Subjective Remarks Follow-up for GI bleeding No overnight bleeding. No overnight events. T-max 100.7. Status post repeat colonoscopy today. Patient not very cooperative, poor historian Objective Vitals Vital Signs Date Time Temp Pulse Resp B/P (MAP) Pulse Ox O2 Delivery O2 Flow Rate FiO2 05/20/17 08:00 98.3 75 16 147/68 (94) 96 05/20/17 04:35 99.5 84 18 120/67 (84) 94 05/20/17 04:00 72 05/20/17 00:25 100.7 104 17 175/77 (109) 94 05/19/17 23:45 112 05/19/17 20:05 103 05/19/17 19:55 98.7 102 18 136/64 (88) 98 05/19/17 16:00 100.0 97 18 128/62 (84) 97 05/19/17 14:09 99.4 82 18 136/66 (89) 97 05/19/17 13:20 100.3 74 20 126/63 (84) 97 05/19/17 12:32 21 I/O 05/19/17 05/19/17 05/19/17 05/20/17 05/20/17 05/20/17 07:00 15:00 23:00 07:00 15:00 23:00 Intake Total 1290 ml 400 ml 3820.2 ml Balance 1290 ml 400 ml 3820.2 ml Intake Oral 0 ml 2920 ml IV Total 1290 ml 900.2 ml Other 400 ml # Voids 2 2 5 # Bowel Movements 3 2 2 Result Diagram: 05/19/17 1416 05/19/17 0718 Objective Remarks Not in distress Regular rate and rhythm Clear breath sounds Abdomen soft nontender Awake, alert, moves extremities. Not cooperative. A/P Problem List: (1) Anemia ICD Code: D64.9 - Anemia, unspecified Status: Acute (2) GI bleed ICD Code: K92.2 - Gastrointestinal hemorrhage, unspecified Status: Acute Assessment and Plan 66 YOWM with A fib, schizophrenia, history of gastric AVM, HTN, HLD, DM, and CAD admitted on 05/15 for black tarry stools and acute blood loss anemia. GI bleed - S/P 2 units in the ED - Repeat H&H's dropped from 10.5-8.9, recheck CBC today. - GI consulted, appreciate intervention * s/p EGD / showing esophagitis and gastritis, biopsies taken * Colonoscopy done yesterday, incomplete, repeat colonoscopy today showed 2 AVMs in the cecum status post ablation, nodule in the rectum status post biopsy. Follow-up biopsy results as outpatient. Continue Protonix. * Needs capsule endoscopy as outpatient, GI clinic follow-up in 2-3 weeks Leukocytosis-? Etiology, with low-grade fever, T-max 100.7, check urinalysis, blood culture and chest x-ray. Recheck CBC today. Acute blood loss anemia - s/p 2 units PRBCs, repeat hemoglobin stable. - Hb 6.9 on admission, - Continue to monitor Atrial fibrillation - Intermittently in RVR, not on any rate control - Start metoprolol 12.5 mg BID and can titrate, heart rate stable in the 70s. - Holding home Equilis for now - Per GI, anticoagulation can be resumed after colonoscopy HTN - Continue Amlodipine, terazosin, and Lisinopril DM - Novolog 5 units TIDAC Psych: depression, schizophrenia - Continue home fluoxetine, mirtazapine, and risperidone BPH - Continue home Flomax HLD - Continue statin DVT prophylaxis: holding chemical anticoagulation for now given GI bleed but can be restarted after colonoscopy Discharge Planning Can be discharged back to SNF if CBC, chest x-ray and urinalysis unremarkable. Problem Qualifiers (1) Anemia: Qualified Codes: D64.9 - Anemia, unspecified (2) GI bleed: Qualified Codes: K92.2 - Gastrointestinal hemorrhage, unspecified Estela Amezquita MD May 20, 2017 09:07
[2017-05-20] MEDS: FERROUS SULFATE 325 MG (65 MG ELEMENTAL IRON) TAB PO SCH ×3 (09:30→18:51)
[2017-05-20] MEDS ORDERED: LIDOCAINE HCL 1% PF 5 ML SYRINGE OTHER ONE (12:00)
[2017-05-20] MEDS ORDERED: PROPOFOL 200 MG/20 ML AMP IV ONE (12:00)
--- NOTE | 2017-05-20 12:40 | PD.PROCEDR ---
GI Procedure PROCEDURE PERFORMED Colonoscopy with ablation of AVM, biopsy INDICATION FOR PROCEDURE Anemia PROCEDURE: The procedure, risks and benefits were discussed with Mr. Bell and informed consent was obtained. Anesthesia sedated him with Diprivan. He was placed in the left lateral decubitus position. Colonoscopy: The Pentax videoscope was introduced through the rectum and advanced to cecum. Retroflexion was performed in the rectum. Colonic prep was fair ESTIMATED BLOOD LOSS: None SPECIMENS REMOVED: Rectal nodule COMPLICATIONS: None IMPRESSION: 2 AVMs in the cecum ablated with gold probe Some stool throughout the colon may interfere with the vision of small lesion Small nodule in the rectum could be skin tag biopsy was done PLAN: Await biopsy results May feed patient Monitor H&H with packed RBC as needed Capsule endoscopy as an outpatient Follow up in GI clinic in 2-3 weeks Fernanda Sepulveda MD May 20, 2017 12:39
--- NOTE | 2017-05-20 12:41 | HHI.GIFU ---
Subjective Remarks Patient laying in bed, not very conversational, no sign of active bleeding, mild drop in his hemoglobin Objective Vitals I&O Vital Signs Date Time Temp Pulse Resp B/P (MAP) Pulse Ox O2 Delivery O2 Flow Rate FiO2 05/20/17 12:29 97.4 63 18 131/64 (86) 97 05/20/17 08:00 98.3 75 16 147/68 (94) 96 05/20/17 04:35 99.5 84 18 120/67 (84) 94 05/20/17 04:00 72 05/20/17 00:25 100.7 104 17 175/77 (109) 94 05/19/17 23:45 112 05/19/17 20:05 103 05/19/17 19:55 98.7 102 18 136/64 (88) 98 05/19/17 16:00 100.0 97 18 128/62 (84) 97 05/19/17 14:09 99.4 82 18 136/66 (89) 97 05/19/17 13:20 100.3 74 20 126/63 (84) 97 I/O 05/19/17 05/19/17 05/19/17 05/20/17 05/20/17 05/20/17 07:00 15:00 23:00 07:00 15:00 23:00 Intake Total 1290 ml 400 ml 3820.2 ml 400 ml Balance 1290 ml 400 ml 3820.2 ml 400 ml Intake Oral 0 ml 2920 ml IV Total 1290 ml 900.2 ml Other 400 ml 400 ml # Voids 2 2 5 # Bowel Movements 3 2 2 Laboratory Laboratory Tests Test 05/19/17 14:16 White Blood Count 12.4 Red Blood Count 4.37 Hemoglobin 8.9 Hematocrit 29.4 Mean Corpuscular Volume 67.3 Mean Corpuscular Hemoglobin 20.4 Mean Corpuscular Hemoglobin Concent 30.3 Red Cell Distribution Width 27.3 Platelet Count 222 Mean Platelet Volume 8.5 Neutrophils (%) (Auto) 81.3 Lymphocytes (%) (Auto) 9.4 Monocytes (%) (Auto) 9.0 Eosinophils (%) (Auto) 0.1 Basophils (%) (Auto) 0.2 Neutrophils # (Auto) 10.1 Lymphocytes # (Auto) 1.2 Monocytes # (Auto) 1.1 Eosinophils # (Auto) 0.0 Basophils # (Auto) 0.0 CBC Comment AUTO DIFF Differential Comment AUTO DIFF CONFIRMED Platelet Estimate NORMAL Platelet Morphology Comment NORMAL Ovalocytes 1+ Keratocytes OCC Physical Exam HEENT: Pupils round and reactive to light; normocephalic; atraumatic; no jaundice. Throat is clear. NECK: Neck is supple, no JVD, no lymphadenopathy. CHEST: Chest is clear to auscultation and percussion. CARDIAC: Regular rate and rhythm with no murmur gallop or rubs. ABDOMEN: Soft, nondistended, nontender; no hepatosplenomegaly; bowel sounds are present in all four quadrants. EXTREMITIES: No clubbing, cyanosis, or edema. SKIN: Normal; no rash; no jaundice. PRIVACY SPECIALIST: No focal deficits; alert not very conversational lethargic. Assessment and Plan Plan Patient is 66-year-old with anemia, had upper endoscopy, yesterday had incomplete colonoscopy, he had colonoscopy again today, tolerated well, mild drop in his hemoglobin IMPRESSION: 2 AVMs in the cecum ablated with gold probe Some stool throughout the colon may interfere with the vision of small lesion Small nodule in the rectum could be skin tag biopsy was done PLAN: Await biopsy results May feed patient Monitor H&H with packed RBC as needed Capsule endoscopy as an outpatient Follow up in GI clinic in 2-3 weeks Fernanda Sepulveda MD May 20, 2017 12:41
[2017-05-20] MEDS: SODIUM CHLOR 0.9% 1000 ML INJ 1,000 ML IV SCH (15:39)
--- NOTE | 2017-05-20 15:48 | RADRPT ---
EXAM DATE/TIME: 05/20/2017 15:13 [place] COMPARISON: CHEST SINGLE AP, December 30, 2016, 10:53. CHEST SINGLE AP, May 15, 2017, 9:55. INDICATIONS : Fever. MEDICAL HISTORY : Anemia. SURGICAL HISTORY : None. ENCOUNTER: Subsequent ACUITY: 4 - 6 days PAIN SCORE: 0/10 LOCATION: Bilateral chest FINDINGS: Portable AP view of the chest demonstrates a normal-sized cardiac silhouette. Lungs are underinflated with mild atelectasis at the lung bases. No pleural effusion, airspace consolidation, or pneumothora x is identified. The bones and soft tissues demonstrate no acute finding. CONCLUSION: No acute cardiopulmonary abnormality is identified. There is mild atelectasis at the lung bases. Fernando Das MD on May 20, 2017 at 15:45 Board Certified Radiologist. This report was verified electronically.
[2017-05-20 16:05] LABS: AUTOMATED NEUTROPHIL # 7.5 TH/MM3 (1.8-7.7); BASOPHIL % 0.3 % (0.0-2.0); EOSINOPHIL # 0.1 TH/MM3 (0-0.4); EOSINOPHIL % 0.9 % (0.0-4.0); HEMOGLOBIN 9.1 GM/DL (13.0-17.0); LYMPH % 14.9 % (9.0-44.0); LYMPHOCYTE # 1.5 TH/MM3 (1.0-4.8); MEAN CELL VOLUME 66.9 FL (80.0-100.0); MEAN CORPUSCULAR HEMOGLOBIN 20.3 PG (27.0-34.0); MEAN CORPUSCULAR HGB CONC 30.3 % (32.0-36.0); MEAN PLATELET VOLUME 8.4 FL (7.0-11.0); MONO % 8.3 % (0.0-8.0); MONOCYTE # 0.8 TH/MM3 (0-0.9); NEUT % 75.6 % (16.0-70.0); PLATELET COUNT 224 TH/MM3 (150-450); RED BLOOD COUNT 4.48 MIL/MM3 (4.50-5.90); RED CELL DISTRIBUTION WIDTH 27.5 % (11.6-17.2); WHITE BLOOD COUNT 9.9 TH/MM3 (4.0-11.0)
[2017-05-20 16:40] LABS: OVALOCYTES 1+ (NORMAL)
[2017-05-20 16:41] LABS: ACANTHOCYTES OCC (NORMAL); KERATOCYTES OCC (NORMAL)
[2017-05-20] MEDS: GABAPENTIN 300 MG CAP PO SCH (20:58)
[2017-05-20] MEDS: ATORVASTATIN 40 MG TAB PO SCH (20:58)
[2017-05-20] MEDS: TERAZOSIN HCL 1 MG CAP PO SCH (20:59)
[2017-05-20] MEDS: MIRTAZAPINE 15 MG TAB PO SCH (21:00)
[2017-05-21 00:11] VITALS: BP 165/76; PULSE 66; RESP 16; TEMP 98.4; O2SAT 98
[2017-05-21 00:31] VITALS: PULSE 77
[2017-05-21] MEDS: SODIUM CHLOR 0.9% 1000 ML INJ 1,000 ML IV SCH (00:31)
[2017-05-21] MEDS: PANTOPRAZOLE INJ 80 MG in SODIUM CHLORIDE 0.9% INJ 100 ML IV SCH (03:27)
[2017-05-21 04:00] VITALS: BP 149/57; PULSE 62; RESP 17; TEMP 98.3; O2SAT 97
[2017-05-21] MEDS: INSULIN ASPART SUPPLEMENTAL SCALE SQ SCH ×2 (07:35→12:00)
[2017-05-21] MEDS: INSULIN ASPART 1,000 UNITS/10 ML VIAL SQ SCH ×2 (07:36→13:31)
[2017-05-21] MEDS: LISINOPRIL 20 MG TAB PO SCH (07:37)
[2017-05-21] MEDS: risperiDONE 1 MG TAB PO SCH (07:37)
[2017-05-21] MEDS: TAMSULOSIN HCL 0.4 MG CAP PO SCH (07:37)
[2017-05-21] MEDS: METOPROLOL TARTRATE 25 MG TAB PO SCH (07:37)
[2017-05-21] MEDS: FLUoxetine HCL 20 MG CAP PO SCH (07:37)
[2017-05-21] MEDS: TOLTERODINE TARTRATE 2 MG CAP LA PO SCH (07:38)
[2017-05-21] MEDS: SODIUM CHLORIDE 0.9% FLUSH 10 ML FLUSH IV FLUSH SCH (07:39)
[2017-05-21] MEDS: FERROUS SULFATE 325 MG (65 MG ELEMENTAL IRON) TAB PO SCH ×2 (07:45→13:31)
[2017-05-21 07:50] VITALS: BP 170/78; PULSE 70; RESP 18; TEMP 99; O2SAT 96
[2017-05-21 09:26] LABS: HEMATOCRIT 32.2 % (39.0-51.0); HEMOGLOBIN 9.9 GM/DL (13.0-17.0); MEAN CELL VOLUME 66.1 FL (80.0-100.0); MEAN CORPUSCULAR HEMOGLOBIN 20.4 PG (27.0-34.0); MEAN CORPUSCULAR HGB CONC 30.8 % (32.0-36.0); MEAN PLATELET VOLUME 8.5 FL (7.0-11.0); PLATELET COUNT 220 TH/MM3 (150-450); RED BLOOD COUNT 4.86 MIL/MM3 (4.50-5.90); RED CELL DISTRIBUTION WIDTH 27.4 % (11.6-17.2); WHITE BLOOD COUNT 6.7 TH/MM3 (4.0-11.0)
[2017-05-21 09:38] VITALS: O2SAT 97
[2017-05-21 12:00] VITALS: BP 170/79; PULSE 64; RESP 18; TEMP 98.8; O2SAT 96
[2017-05-21] MEDS ORDERED: PANT40TA3 PO (12:14)
--- NOTE | 2017-05-21 12:14 | HHI.DS ---
Discharge Summary Admission Date May 15, 2017 at 12:45 Discharge Date: May 21, 2017 Admitting Diagnosis SYMPTOMATIC ANEMIA, GI BLEED (1) Anemia ICD Code: D64.9 - Anemia, unspecified Status: Acute (2) GI bleed ICD Code: K92.2 - Gastrointestinal hemorrhage, unspecified Status: Acute Procedures egd/colonoscopy Brief History - From Admission History of her ER physician communication, and review of medical records, and senior care transfer notes. Patient was sent from his senior care because of low hemoglobin. Patient himself is not able to give me any history. He would answer yes or no questions by nodding his head. Once in a while, he would say 1 or 2 words. Per senior care transfer notes, patient was having black tarry stools. In the emergency room, his guaiac was positive positive. He hemoglobin was 6 at the CA. He is on Eliquis at home. Review of system is extremely limited because of patient's condition. CBC/BMP: 05/21/17 0811 05/19/17 0718 Significant Findings Laboratory Tests Test 05/18/17 20:56 05/19/17 07:18 05/19/17 14:16 05/20/17 15:33 Cholesterol Level 71 MG/DL (120-200) Random Glucose 143 MG/DL (74-106) Total Protein 6.2 GM/DL (6.4-8.2) Calcium Level 7.3 MG/DL (8.5-10.1) Potassium Level 3.2 MEQ/L (3.5-5.1) Protein Corrected Calcium 7.8 MG/DL (8.5-10.1) White Blood Count 12.4 TH/MM3 (4.0-11.0) Red Blood Count 4.37 MIL/MM3 (4.50-5.90) 4.48 MIL/MM3 (4.50-5.90) Hemoglobin 8.9 GM/DL (13.0-17.0) 9.1 GM/DL (13.0-17.0) Hematocrit 29.4 % (39.0-51.0) 30.0 % (39.0-51.0) Mean Corpuscular Volume 67.3 FL (80.0-100.0) 66.9 FL (80.0-100.0) Mean Corpuscular Hemoglobin 20.4 PG (27.0-34.0) 20.3 PG (27.0-34.0) Mean Corpuscular Hemoglobin Concent 30.3 % (32.0-36.0) 30.3 % (32.0-36.0) Red Cell Distribution Width 27.3 % (11.6-17.2) 27.5 % (11.6-17.2) Neutrophils (%) (Auto) 81.3 % (16.0-70.0) 75.6 % (16.0-70.0) Monocytes (%) (Auto) 9.0 % (0.0-8.0) 8.3 % (0.0-8.0) Neutrophils # (Auto) 10.1 TH/MM3 (1.8-7.7) Monocytes # (Auto) 1.1 TH/MM3 (0-0.9) Ovalocytes 1+ (NORMAL) 1+ (NORMAL) Test 05/21/17 08:11 Hemoglobin 9.9 GM/DL (13.0-17.0) Hematocrit 32.2 % (39.0-51.0) Mean Corpuscular Volume 66.1 FL (80.0-100.0) Mean Corpuscular Hemoglobin 20.4 PG (27.0-34.0) Mean Corpuscular Hemoglobin Concent 30.8 % (32.0-36.0) Red Cell Distribution Width 27.4 % (11.6-17.2) Imaging Last Impressions Chest X-Ray 05/20/17 0923 Signed Impressions: Service Date/Time: Saturday, May 20, 2017 15:13 - CONCLUSION: No acute cardiopulmonary abnormality is identified. There is mild atelectasis at the lung bases. Fernando Das MD PE at Discharge Not in distress Regular rate and rhythm Clear breath sounds Abdomen soft nontender Awake, alert, moves extremities. Not cooperative. Pt update on day of discharge In nad. No events overnight. No bleeding. No cp, sob, n/v/d/c. Discussed with the son by phone all questions answered to best of my ability Hospital Course 66 YOWM with A fib, schizophrenia, history of gastric AVM, HTN, HLD, DM, and CAD admitted on 05/15 for black tarry stools and acute blood loss anemia. GI bleed 2/2 AVMs s/p ablation by GI Dr Sepulveda. S/P 2 units in the ED Repeat H&H's stable GI consulted, appreciate intervention s/p EGD 05/15 showing esophagitis and gastritis, biopsies taken Colonoscopy done yesterday, incomplete, repeat colonoscopy today showed 2 AVMs in the cecum status post ablation, nodule in the rectum status post biopsy. Follow-up biopsy results as outpatient. Continue Protonix. Needs capsule endoscopy as outpatient, GI clinic follow-up in 2-3 weeks Leukocytosis-? Etiology, with low-grade fever, T-max 100.7, check urinalysis, blood culture and chest x-ray. Recheck CBC today. Acute blood loss anemia s/p 2 units PRBCs, repeat hemoglobin stable. Hb 6.9 on admission, transfused no more bleeding Continue to monitor Atrial fibrillation Intermittently in RVR, not on any rate control Start metoprolol 12.5 mg BID and can titrate, heart rate stable in the 70s. Holding home Equilis for now Per GI, anticoagulation can be resumed after colonoscopy HTN Continue Amlodipine, terazosin, and Lisinopril DM2 Novolog 5 units TIDAC Psych: depression, schizophrenia Continue home fluoxetine, mirtazapine, and risperidone BPH Continue home Flomax HLD Continue statin DVT prophylaxis: holding chemical anticoagulation for now given GI bleed but can be restarted after colonoscopy Discharged back to SNF in stable condition to follow up as OP with PCP and consultants Pt Condition on Discharge: Stable Discharge Disposition: Discharge to SNF Discharge Time: > 30 minutes Discharge Instructions DIET: Follow Instructions for: Heart Healthy Diet, Diabetic Diet Activities you can perform: Regular-No Restrictions Follow up Referrals: Gastroenterology - 2 Weeks PCP Follow-up - 2 Weeks New Medications: Pantoprazole (Pantoprazole) 40 Mg Tab 40 MG PO DAILY for Reflux, #30 TAB 0 Refills Continued Medications: Albuterol 18 GM Inh (Ventolin Hfa 18 GM Inh) 90 Mcg/Act Aer 2 PUFF INH Q6H PRN for SHORTNESS OF BREATH, #1 INHALER 0 Refills Amlodipine (Amlodipine) 10 Mg Tab 10 MG PO DAILY for Blood Pressure Management, #30 TAB 0 Refills Apixaban (Eliquis) 2.5 Mg Tab 2.5 MG PO BID for Blood Clot Prevention, #60 TAB 0 Refills Atorvastatin (Atorvastatin) 40 Mg Tab 40 MG PO HS for Cholesterol Management, #30 TAB 0 Refills Bisacodyl Supp (Dulcolax Supp) 10 Mg Supp 10 MG RECTAL DAILY PRN for CONSTIPATION, #12 SUPP 0 Refills Cyanocobalamin (Vitamin B-12) 1,000 Mcg Tab 1000 MCG PO DAILY for Nutritional Supplement, #1 BOTTLE 0 Refills Ferrous Sulfate (Ferrous Sulfate) 325 Mg (65 Mg Iron) Tablet 325 MG PO TIDPC for Nutritional Supplement, #90 TAB 0 Refills Fluoxetine (Fluoxetine) 20 Mg Tab 20 MG PO DAILY for Depression Control, #30 TAB 0 Refills Gabapentin (Gabapentin) 300 Mg Cap 300 MG PO HS, #30 CAP 0 Refills Lisinopril (Lisinopril) 20 Mg Tab 20 MG PO DAILY, #30 TAB 0 Refills Magnesium Hydroxide Liq (Milk of Magnesia Liq) 400 Mg/5 Ml Susp 30 ML PO DAILY PRN for NO BM IN 3 DAYS, #1 BOTTLE 0 Refills Metformin (Metformin) 500 Mg Tab 500 MG PO BID for Blood Sugar Management, #60 TAB 0 Refills Mirtazapine (Remeron) 15 Mg Tab 15 MG PO HS for Depression Control, #30 TAB 0 Refills Omeprazole (Omeprazole) 20 Mg Tab 20 MG PO DAILY for GERD, #30 TAB 0 Refills Oxybutynin ER 24 HR (Oxybutynin ER 24 HR) 5 Mg Tab 5 MG PO DAILY for Overactive Bladder, TAB 0 Refills Risperidone (Risperidone) 2 Mg Tab 2 MG PO Q12HR, #60 TAB 0 Refills Sitagliptin (Januvia) 50 Mg Tab 50 MG PO DAILY for Blood Sugar Management, #30 TAB 0 Refills Sodium Phosphates (Enema Disposable) 19 Gram-7 Gram/118 Ml [place] 1 APPLIC VT DAILY PRN for CONSTIPATION Tamsulosin (Tamsulosin) 0.4 Mg Cap 0.4 MG PO DAILY for Manage Prostate Problems, #30 CAP 0 Refills Terazosin (Terazosin) 2 Mg Cap 2 MG PO HS, #30 CAP 0 Refills Jordana Melton MD May 21, 2017 12:14
--- NOTE | 2017-05-21 12:54 | HHI.GIFU ---
Subjective Remarks Pt resting in bed Answers yes and no questions Eating fine No BMs documented since colonoscopy Denies abdominal pain (Lacey Luna) Objective Vitals I&O Vital Signs Date Time Temp Pulse Resp B/P (MAP) Pulse Ox O2 Delivery O2 Flow Rate FiO2 05/21/17 09:38 97 21 05/21/17 07:50 99.0 70 18 170/78 (108) 96 05/21/17 04:00 98.3 62 17 149/57 (87) 97 05/21/17 00:31 77 05/21/17 00:11 98.4 66 16 165/76 (105) 98 05/20/17 21:28 71 05/20/17 19:00 98.2 75 16 132/61 (84) 97 05/20/17 16:00 98.1 70 18 162/72 (102) 100 I/O 05/20/17 05/20/17 05/20/17 05/21/17 05/21/17 05/21/17 07:00 15:00 23:00 07:00 15:00 23:00 Intake Total 3820.2 ml 400 ml 881 ml 1300 ml Output Total 1900 ml Balance 3820.2 ml 400 ml 881 ml -600 ml Intake Oral 2920 ml 120 ml IV Total 900.2 ml 761 ml 1300 ml Other 400 ml Output Urine Total 1900 ml Stool Total 0 ml # Voids 5 # Bowel Movements 2 Laboratory Laboratory Tests Test 05/20/17 15:33 05/21/17 08:11 White Blood Count 9.9 6.7 Red Blood Count 4.48 4.86 Hemoglobin 9.1 9.9 Hematocrit 30.0 32.2 Mean Corpuscular Volume 66.9 66.1 Mean Corpuscular Hemoglobin 20.3 20.4 Mean Corpuscular Hemoglobin Concent 30.3 30.8 Red Cell Distribution Width 27.5 27.4 Platelet Count 224 220 Mean Platelet Volume 8.4 8.5 Neutrophils (%) (Auto) 75.6 Lymphocytes (%) (Auto) 14.9 Monocytes (%) (Auto) 8.3 Eosinophils (%) (Auto) 0.9 Basophils (%) (Auto) 0.3 Neutrophils # (Auto) 7.5 Lymphocytes # (Auto) 1.5 Monocytes # (Auto) 0.8 Eosinophils # (Auto) 0.1 Basophils # (Auto) 0.0 CBC Comment AUTO DIFF Differential Comment AUTO DIFF CONFIRMED Platelet Estimate NORMAL Platelet Morphology Comment NORMAL Ovalocytes 1+ Acanthocytes OCC Keratocytes OCC Date/Time Source Procedure Growth Status 05/20/17 15:41 Blood Peripheral Aerobic Blood Culture - Preliminary NO GROWTH IN 1 DAY Resulted 05/20/17 15:41 Blood Peripheral Anaerobic Blood Culture - Final QNS - SEE AEROBE REPORT Resulted Imaging Last Impressions Chest X-Ray 05/20/17 0923 Signed Impressions: Service Date/Time: Saturday, May 20, 2017 15:13 - CONCLUSION: No acute cardiopulmonary abnormality is identified. There is mild atelectasis at the lung bases. Fernando Das MD Physical Exam HEENT: Normocephalic; atraumatic CHEST: Even/unlabored ABDOMEN: Soft, nondistended, nontender; bowel sounds active SKIN: Normal; no rash; no jaundice. 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 Erythematous moderate gastritis in the gastric antrum, biopsy. Normal duodenum. Pathology (stomach, antrum) Gastric antral mucosa without significant histologic abnormality (esophagus) squamocolumnar mucosa with mild chronic inflammation. Negative for intestinal metaplasia and glandular dysplasia. S/P colonoscopy --> 2 AVMs in the cecum ablated. Some stool throughout the colon may interfere with the vision of small lesion. Small nodule in the rectum could be skin tag, biopsy done. Pathology pending H/H remains stable overnight. No BMs documented since colonoscopy. PLAN: Colon biopsy pending Protonix GI will sign off, have pt follow up in office in 2-3 weeks Pt has been seen and examined by myself and Dr. Sepulveda and this note is written on his behalf (Lacey Luna) Plan Patient was seen and examined, agree with above-noted, no active bleeding, patient does not eating too much unless he is fed which is important for nutritional purposes, follow up on biopsy, okay to discharge from GI point if able to eat, we'll sign off at this time (Fernanda Sepulveda MD) Lacey Luna May 21, 2017 12:54 Fernanda Sepulveda MD May 21, 2017 13:53
[2017-05-21] MEDS ORDERED: CALCIUM CARBONATE 500 MG CHEWABLE TAB CHEW ONE (15:15)
[2017-05-22] MEDS ORDERED: PANTOPRAZOLE SOD 40 MG DELAYED RELEASE TAB PO SCH (09:00)
== END 2017-05-21 17:49 | DRG 378 ==
LOC: NEPC 09:18 → NEDA 12:34 → OBSVTOIN 12:45 → N06B 13:54
PROVIDERS: ADMIT Hospitalist; ATTEND Hospitalist
PROC: 30233N1 Transfusion of Nonautologous Red Blood Cells into Peripheral Vein, Percutaneous Approach (ICD-10-PCS; 2017-05-15)
PROC: 0DJD8ZZ Inspection of Lower Intestinal Tract, Via Natural or Artificial Opening Endoscopic (ICD-10-PCS; 2017-05-16)
PROC: 0DB58ZX Excision of Esophagus, Via Natural or Artificial Opening Endoscopic, Diagnostic (ICD-10-PCS; principal; 2017-05-16 11:17)
PROC: 0DB78ZX Excision of Stomach, Pylorus, Via Natural or Artificial Opening Endoscopic, Diagnostic (ICD-10-PCS; 2017-05-16 11:17)
PROC: 0DJD8ZZ Inspection of Lower Intestinal Tract, Via Natural or Artificial Opening Endoscopic (ICD-10-PCS; 2017-05-19)
PROC: 0W3P8ZZ Control Bleeding in Gastrointestinal Tract, Via Natural or Artificial Opening Endoscopic (ICD-10-PCS; 2017-05-20)
PROC: 0DBP8ZX Excision of Rectum, Via Natural or Artificial Opening Endoscopic, Diagnostic (ICD-10-PCS; 2017-05-20)
DX: K55.21 Angiodysplasia of colon with hemorrhage (principal); D62 Acute posthemorrhagic anemia; E11.42 Type 2 diabetes mellitus with diabetic polyneuropathy; I48.91 Unspecified atrial fibrillation; E11.65 Type 2 diabetes mellitus with hyperglycemia; K21.0 Gastro-esophageal reflux disease with esophagitis; K29.70 Gastritis, unspecified, without bleeding; K64.8 Other hemorrhoids; K64.4 Residual hemorrhoidal skin tags; A63.0 Anogenital (venereal) warts; I10 Essential (primary) hypertension; I25.2 Old myocardial infarction; H54.7 Unspecified visual loss; H35.30 Unspecified macular degeneration; F32.9 Major depressive disorder, single episode, unspecified; Z79.01 Long term (current) use of anticoagulants; Z79.84 Long term (current) use of oral hypoglycemic drugs; E78.5 Hyperlipidemia, unspecified; I25.10 Atherosclerotic heart disease of native coronary artery without angina pectoris; Z86.73 Personal history of transient ischemic attack (TIA), and cerebral infarction without residual deficits; N40.0 Benign prostatic hyperplasia without lower urinary tract symptoms; F20.9 Schizophrenia, unspecified; Z86.718 Personal history of other venous thrombosis and embolism
CPT/HCPCS: 36430; 71045; 76937; 80048; 80053; 80061; 81001; 82948; 83036; 83690; 84155; 84443; 84484; 85014; 85018; 85025; 85027; 85610; 85730; 86850; 86900; 86901; 86920; 87040; 88305; 88312; 93005; C9113; J1815; J7030; J7042; J7050; P9016